=== PATIENT | female | born 1945 | race Caucasian/White ===

== ENCOUNTER → 2016-08-15 | Outpatient (REF) | payer MEDICARE, OTHER ==
[~2016-08-15] MED LIST: /RANI15TA PO; /ROPI1TA PO; ACET500C PO; ALBUTEROL; DRIS1CAP PO; FURO20TA2 PO; FURO40TA2 PO; GABA300C2 PO; LOMOTA PO; SPIR25TA2 PO; [UNRECOGNIZED DRUG - CODE] PO; [UNRECOGNIZED DRUG - CODE] SC
[2016-08-15 13:35] LABS: ALBUMIN 3.3 GM/DL (3.2-5.2); ALBUMIN/GLOBULIN RATIO 0.73 (1.00-1.93); ALKALINE PHOSPHATASE 93 U/L (45-117); ALT/SGPT 48 U/L (12-78); AMYLASE 47 U/L (25-115); ANION GAP 11 MEQ/L (8-16); AST/SGOT 23 U/L (15-37); BASO # 0.1 K/mm3 (0.0-0.2); BASO % 0.7 % (0.0-1.0); BILIRUBIN,TOTAL 0.6 MG/DL (0.2-1.0); BLOOD UREA NITROGEN 24 MG/DL (7-18); CALCIUM LEVEL 9.5 MG/DL (8.8-10.2); CARBON DIOXIDE LEVEL 32 MEQ/L (21-32); CHLORIDE LEVEL 95 MEQ/L (98-107); CREATININE FOR GFR 0.94 MG/DL (0.55-1.02); EOS # 0.2 K/mm3 (0.0-0.50); EOS % 2.1 % (0.0-3.0); GLOMERULAR FILTRATION RATE > 60.0 (>39); GLUCOSE, FASTING 204 MG/DL (83-110); LARGE UNSTAINED CELL # 0.3 K/mm3 (0.0-0.4); LARGE UNSTAINED CELL % 2.9 % (0.0-4.0); LYMPH # 2.7 K/mm3 (1.5-4.5); LYMPH % 31.6 % (24.0-44.0); MEAN CORPUSCULAR HEMOGLOBIN 25.4 pg (27.0-33.0); MEAN CORPUSCULAR HGB CONC 31.8 g/dl (32.0-36.5); MEAN CORPUSCULAR VOLUME 79.9 fl (80.0-96.0); MONO # 0.3 K/mm3 (0.0-0.8); MONO % 3.1 % (0.0-5.0); NEUTROPHILS % 59.6 % (36.0-66.0); PLATELET COUNT, AUTOMATED 315 k/mm3 (150-450); POTASSIUM SERUM 4.3 MEQ/L (3.5-5.1); RED CELL DISTRIBUTION WIDTH 14.2 % (11.5-14.5); SODIUM LEVEL 138 MEQ/L (136-145); TOTAL PROTEIN 7.8 GM/DL (6.4-8.2); WHITE BLOOD COUNT 8.4 K/mm3 (4.0-10.0)
== END ==
LOC: M SFHCPLAZ 11:21
PROVIDERS: ATTEND Nurse Practitioner Family
DX: R74.8 Abnormal levels of other serum enzymes (principal); E11.9 Type 2 diabetes mellitus without complications
CPT/HCPCS: 80053; 82150; 83690; 85025; G0463

== ENCOUNTER → 2016-09-05 | Outpatient (REF) | payer MEDICARE ==
[2016-09-05 12:24] LABS: FREE T4 1.11 NG/DL (0.76-1.46)
== END ==
LOC: M SFHCPLAZ 09:54
PROVIDERS: ATTEND Nurse Practitioner Family
DX: E03.9 Hypothyroidism, unspecified (principal); E11.9 Type 2 diabetes mellitus without complications

== ENCOUNTER → 2016-11-16 | Day surgery (SDC) | payer MEDICARE ==
[~2016-11-16] VITALS: Ht 157.5 cm; Wt 104.3 kg
[~2016-11-16] MED LIST changes: +ACETAMINOPHEN 325 MG TAB PO PRN; +ACETYLCHOLINE OPHTH SOLN 1% 2ML (MIOCHOL-E) As Ordered ONE; +ALBU17IN INH; +ATOR40TA PO; +AcetaZOLAMIDE 500 MG ER CAP PO ONE; +BALANCED SALT IRRIGATION SOLUTION 500ML BAG (FOR OR EYE MACHINE) As Ordered ONE; +CEFUROXIME 1MG/0.1ML INTRACAMERAL INJ As Ordered ONE; +CYCLOPENTOLATE 2% OPHTH SOLN 2ML BTL OD ONE; +GLIP5TAB8 PO; +HEALON DUET (HEALON 10MG/ML 0.55ML & HEALON ENDOCOAT 30MG/ML 0.85ML) As Ordered ONE; +HumaLOG INSULIN (NovoLOG) PER UNIT As Ordered ONE; +HumaLOG INSULIN (NovoLOG) PER UNIT SC ONE; +IPRASOL4; +KETOROLAC 0.5% OPHTH SOLN OD ONE; +LEVO100T5 PO; +LIDOCAINE 1% SDV 5 ML VIAL As Ordered ONE; +LIDOCAINE 4% INJ 5 ML AMP OU ONE; +LISI-542 PO; +LR 500 ML IV SCH; +MELO7.5T6 PO; +METF1000 PO; +MIDAZOLAM INJ 2 MG/2 ML VIAL (J2250) As Ordered ONE; +OFLOXACIN 0.3 % (OCUFLOX) OPTH SOL 5ML OD ONE; +PANT40TA2 PO; +PHENYLEPHRINE 2.5% OPHTH SOL 2ML OD ONE; +POVIDONE-IODINE 5% OPHTH PREP SOL 30ML As Ordered ONE; +PROPARACAINE 0.5% OPHTH SOL 15ML OD PRN; +ROPI0.5T PO; +TORS20TA2 PO; +TRAZ50TA4 PO; +TRIMETHOBENZAMIDE 300 MG CAP PO PRN; +TROPICAMIDE 1% OPHTH SOLN 2ML OD ONE; +fentaNYL 100 MCG/2 ML INJECTION (J3010) As Ordered ONE
--- NOTE | 2016-11-16 12:34 | RO ---
DATE OF PROCEDURE: 11/16/2016 PREPROCEDURE DIAGNOSIS: Age-related nuclear cataract right eye. POSTPROCEDURE DIAGNOSIS: Age-related nuclear cataract right eye. PROCEDURE: Phacoemulsification and posterior chamber intraocular lens implantation right eye. The lens used was [id number], 17.5 diopter. SURGEON: Danyelle Jimenez MD MED AIDE: ANESTHESIA: Topical with sedation. DESCRIPTION OF PROCEDURE: The patient was prepped and draped in the usual fashion. A lid speculum was placed between the lids. The eye was fixated. A stab incision was made to the anterior chamber, and 1% non-preserved lidocaine was instilled. Then, viscoelastic was instilled. The eye was re-fixated. A 2.75 mm sapphire keratome was used to make a clear corneal temporal limbal incision. Capsulorrhexis was begun with a 30-gauge bent needle and then carried out in a circular fashion with capsulorrhexis forceps. The lens was hydrodissected, and then the phacoemulsification unit was used to make a groove in the nucleus in two meridians. The nucleus was then cracked into four quadrants. Each quadrant was removed with the phacoemulsification unit. Any remaining cortex was removed with the irrigation and aspiration (I and A) unit. Capsular bag was refilled with viscoelastic. A posterior chamber intraocular lens was placed in the capsular bag without difficulty. Any remaining viscoelastic was removed with the I and A unit. The wound was hydrated, and Miochol and cefuroxime were instilled into the anterior chamber. The patient tolerated the procedure well and went to the recovery room in stable condition.
[2016-11-16 13:15] VITALS: BP 166/70
== END | disposition home or self-care (01) ==
LOC: M SDC 11:07
PROVIDERS: ATTEND Ophthalmology
DX: H25.12 Age-related nuclear cataract, left eye (principal); R01.1 Cardiac murmur, unspecified; E11.40 Type 2 diabetes mellitus with diabetic neuropathy, unspecified; E03.9 Hypothyroidism, unspecified; K21.9 Gastro-esophageal reflux disease without esophagitis; R29.898 Other symptoms and signs involving the musculoskeletal system; M13.0 Polyarthritis, unspecified; J45.909 Unspecified asthma, uncomplicated; J44.9 Chronic obstructive pulmonary disease, unspecified; I10 Essential (primary) hypertension; R06.83 Snoring; R06.09 Other forms of dyspnea; M54.5 Low back pain; M10.9 Gout, unspecified; G89.29 Other chronic pain; G47.33 Obstructive sleep apnea (adult) (pediatric); G25.81 Restless legs syndrome; E66.01 Morbid (severe) obesity due to excess calories; Z79.899 Other long term (current) drug therapy; Z79.84 Long term (current) use of oral hypoglycemic drugs; Z87.81 Personal history of (healed) traumatic fracture; Z78.0 Asymptomatic menopausal state; Z87.891 Personal history of nicotine dependence
CPT/HCPCS: 66984; J2250; J3010; V2632

== ENCOUNTER 2017-10-27 11:24 | Inpatient (IN) | payer MEDICARE, SELFPAY ==
[2017-10-27 12:18] LABS: BASO # 0.1 10^3/uL (0.0-0.2); BASO % 0.8 % (0.0-1.0); EOS # 0.1 10^3/uL (0.0-0.50); EOS % 2.3 % (0.0-3.0); HEMATOCRIT 29.1 % (36.0-47.0); HEMOGLOBIN 8.7 g/dl (12.0-15.5); IMMATURE GRANULOCYTE % 0.7 % (0-3.0); LYMPH # 0.9 10^3/uL (1.5-4.5); LYMPH % 14.8 % (24.0-44.0); MEAN CORPUSCULAR HEMOGLOBIN 23.8 pg (27.0-33.0); MEAN CORPUSCULAR HGB CONC 29.9 g/dl (32.0-36.5); MEAN CORPUSCULAR VOLUME 79.7 fl (80.0-96.0); MONO # 0.4 10^3/uL (0.0-0.8); MONO % 7.3 % (0.0-5.0); NEUTROPHILS # 4.5 10^3/uL (1.8-7.7); NEUTROPHILS % 74.1 % (36.0-66.0); PLATELET COUNT, AUTOMATED 271 10^3/uL (150-450); RED BLOOD COUNT 3.65 10^6/uL (4.00-5.40); RED CELL DISTRIBUTION WIDTH 17.3 % (11.5-14.5)
[2017-10-27 12:29] LABS: INR 1.34; PROTHROMBIN TIME 16.9 SECONDS (12.4-14.5)
[2017-10-27 12:45] LABS: ALBUMIN/GLOBULIN RATIO 0.57 (1.00-1.93); ALKALINE PHOSPHATASE 56 U/L (45-117); ALT/SGPT 15 U/L (12-78); ANION GAP 6 MEQ/L (8-16); AST/SGOT 17 U/L (7-37); BILIRUBIN,DIRECT 0.4 MG/DL (0.0-0.2); BILIRUBIN,TOTAL 0.8 MG/DL (0.2-1.0); BLOOD UREA NITROGEN 13 MG/DL (7-18); CALCIUM LEVEL 8.3 MG/DL (8.8-10.2); CARBON DIOXIDE LEVEL 28 MEQ/L (21-32); CHLORIDE LEVEL 108 MEQ/L (98-107); CPK CREATINE PHOSPHOKINASE 50 U/L (26-192); CREATININE FOR GFR 0.92 MG/DL (0.55-1.30); GLOMERULAR FILTRATION RATE > 60.0 (>39); GLUCOSE, FASTING 193 MG/DL (70-100); POTASSIUM SERUM 3.7 MEQ/L (3.5-5.1); SODIUM LEVEL 142 MEQ/L (136-145); TOTAL PROTEIN 8.3 GM/DL (6.4-8.2); TROPONIN I < 0.02 NG/ML (< 0.10)
[2017-10-27 12:50] LABS: CK-MB VALUE MASS 1.2 NG/ML (<3.6); NT-PRO BNP 1132 PG/ML (<125)
[2017-10-27 12:56] LABS: DIGOXIN LEVEL 0.4 NG/ML (0.5-2.0)
[2017-10-27 13:11] LABS: INFLUENZA A AMPLIFICATION NEGATIVE (NEGATIVE); INFLUENZA B AMPLIFICATION NEGATIVE (NEGATIVE)
[2017-10-27] MEDS: DIGOXIN 0.125 MG TAB PO (13:30)
[2017-10-27] MEDS: METOPROLOL 5 MG/5 ML VIAL IV (15:20)
[2017-10-27] MEDS: METOPROLOL TART 25 MG TABLET PO ×2 (15:40→21:13)
[2017-10-27] MEDS ORDERED: ISOVUE-370 76% 100ML VIAL (Q9967) As Ordered (16:47)
[2017-10-27] MEDS ORDERED: ACETAMINOPHEN TAB 650MG DOSE (2X325MG) PO (17:45)
[2017-10-27] MEDS ORDERED: GLUCOSE 4 GM CHEW TABLET PO (17:45)
[2017-10-27] MEDS ORDERED: GLUCAGON FOR INJ 1 MG VIAL (J1610) SC (17:45)
[2017-10-27] MEDS ORDERED: DEXTROSE 50% 50 ML SYRINGE IV (17:45)
[2017-10-27 18:11] LABS: FREE T4 1.26 NG/DL (0.76-1.46)
[2017-10-27] MEDS ORDERED: ALBUTEROL SULFATE 2.5 MG/0.5 ML INH NEB SOLN NEB (18:15)
[2017-10-27] MEDS: HumaLOG INSULIN (NovoLOG) PER UNIT SC ×2 (18:50→21:12)
[2017-10-27] MEDS: traZODone 50 MG TAB PO (21:10)
[2017-10-27] MEDS: rOPINIRole 0.25 MG TAB(REQUIP) PO (21:10)
[2017-10-27] MEDS: ENOXAPARIN 100MG/1ML SYRINGE (J1650) SC (21:11)
[2017-10-27] MEDS: LEVEMIR (INSULIN DETEMIR) 1 UNITS/0.01ML SC (21:12)
[2017-10-28] MEDS: LEVOTHYROXINE 100MCG TABLET (0.1MG) PO (05:31)
[2017-10-28] MEDS: ENOXAPARIN 100MG/1ML SYRINGE (J1650) SC ×2 (05:31→17:10)
[2017-10-28] MEDS: HumaLOG INSULIN (NovoLOG) PER UNIT SC ×4 (07:30→21:00)
[2017-10-28 07:40] LABS: BEDSIDE GLUCOSE 343 MG/DL (83-110)
[2017-10-28 07:40] LABS: BEDSIDE GLUCOSE 329 MG/DL (83-110)
[2017-10-28 08:26] LABS: BEDSIDE GLUCOSE 191 MG/DL (83-110)
[2017-10-28] MEDS: FUROSEMIDE 20 MG TAB PO (09:00)
[2017-10-28] MEDS: METOPROLOL TART 25 MG TABLET PO ×2 (09:00→21:44)
[2017-10-28] MEDS: LEVEMIR (INSULIN DETEMIR) 1 UNITS/0.01ML SC ×2 (09:05→21:52)
[2017-10-28] MEDS: PANTOPRAZOLE 40MG TAB (PROTONIX) PO (09:06)
[2017-10-28] MEDS: POTASSIUM CHLORIDE 10 MEQ SR TABLET PO (09:06)
[2017-10-28] MEDS: DIGOXIN 0.125 MG TAB PO (09:06)
[2017-10-28] MEDS: FLUoxetine 10 MG CAP PO (09:07)
[2017-10-28] MEDS: glipiZIDE (GLUCOTROL) 5 MG TAB PO (09:07)
[2017-10-28] MEDS: METOPROLOL 5 MG/5 ML VIAL IV ×5 (13:59→14:50)
[2017-10-28 16:59] LABS: BEDSIDE GLUCOSE 106 MG/DL (83-110)
[2017-10-28 18:50] LABS: BEDSIDE GLUCOSE 136 MG/DL (83-110)
[2017-10-28] MEDS: traZODone 50 MG TAB PO (21:39)
[2017-10-28] MEDS: rOPINIRole 0.25 MG TAB(REQUIP) PO (21:42)
[2017-10-28 21:52] LABS: BEDSIDE GLUCOSE 170 MG/DL (83-110)
[2017-10-29] MEDS: ENOXAPARIN 100MG/1ML SYRINGE (J1650) SC ×2 (05:18→17:23)
[2017-10-29] MEDS: LEVOTHYROXINE 100MCG TABLET (0.1MG) PO (05:18)
[2017-10-29] MEDS: glipiZIDE (GLUCOTROL) 5 MG TAB PO (06:43)
[2017-10-29 07:01] LABS: BASO # 0.1 10^3/uL (0.0-0.2); BASO % 0.7 % (0.0-1.0); EOS # 0.2 10^3/uL (0.0-0.50); EOS % 2.4 % (0.0-3.0); HEMATOCRIT 28.6 % (36.0-47.0); HEMOGLOBIN 8.5 g/dl (12.0-15.5); IMMATURE GRANULOCYTE % 0.7 % (0-3.0); LYMPH # 1.6 10^3/uL (1.5-4.5); LYMPH % 22.1 % (24.0-44.0); MEAN CORPUSCULAR HEMOGLOBIN 23.9 pg (27.0-33.0); MEAN CORPUSCULAR HGB CONC 29.7 g/dl (32.0-36.5); MEAN CORPUSCULAR VOLUME 80.6 fl (80.0-96.0); MONO # 0.5 10^3/uL (0.0-0.8); MONO % 7.5 % (0.0-5.0); NEUTROPHILS # 4.7 10^3/uL (1.8-7.7); NEUTROPHILS % 66.6 % (36.0-66.0); PLATELET COUNT, AUTOMATED 284 10^3/uL (150-450); RED BLOOD COUNT 3.55 10^6/uL (4.00-5.40); RED CELL DISTRIBUTION WIDTH 17.4 % (11.5-14.5); WHITE BLOOD COUNT 7.1 10^3/uL (4.0-10.0)
[2017-10-29 07:19] LABS: ANION GAP 6 MEQ/L (8-16); BLOOD UREA NITROGEN 26 MG/DL (7-18); CALCIUM LEVEL 8.3 MG/DL (8.8-10.2); CARBON DIOXIDE LEVEL 28 MEQ/L (21-32); CHLORIDE LEVEL 109 MEQ/L (98-107); CREATININE FOR GFR 0.88 MG/DL (0.55-1.30); GLOMERULAR FILTRATION RATE > 60.0 (>39); GLUCOSE, FASTING 96 MG/DL (70-100); MAGNESIUM LEVEL 2.1 MG/DL (1.8-2.4); POTASSIUM SERUM 3.7 MEQ/L (3.5-5.1); SODIUM LEVEL 143 MEQ/L (136-145)
[2017-10-29] MEDS: HumaLOG INSULIN (NovoLOG) PER UNIT SC ×4 (07:29→21:00)
[2017-10-29] MEDS: FLUoxetine 10 MG CAP PO (08:32)
[2017-10-29] MEDS: PANTOPRAZOLE 40MG TAB (PROTONIX) PO (08:32)
[2017-10-29] MEDS: DIGOXIN 0.125 MG TAB PO (08:32)
[2017-10-29] MEDS: METOPROLOL TART 25 MG TABLET PO ×3 (08:32→21:11)
[2017-10-29] MEDS: POTASSIUM CHLORIDE 10 MEQ SR TABLET PO (08:33)
[2017-10-29] MEDS: FUROSEMIDE 20 MG TAB PO (08:33)
[2017-10-29] MEDS: LEVEMIR (INSULIN DETEMIR) 1 UNITS/0.01ML SC ×2 (08:33→21:11)
[2017-10-29 12:03] LABS: BEDSIDE GLUCOSE 94 MG/DL (83-110)
[2017-10-29] MEDS: CHOLESTYRAMINE 4 GM PWD PKT PO (13:53)
[2017-10-29 17:13] LABS: BEDSIDE GLUCOSE 134 MG/DL (83-110)
[2017-10-29] MEDS: FUROSEMIDE 20 MG/2 ML VIAL (J1940) IV (17:32)
[2017-10-29] MEDS: traZODone 50 MG TAB PO (21:10)
[2017-10-29] MEDS: rOPINIRole 0.25 MG TAB(REQUIP) PO (21:11)
[2017-10-29 21:18] LABS: BEDSIDE GLUCOSE 170 MG/DL (83-110)
[2017-10-30 04:01] LABS: BASO % 0.6 % (0.0-1.0); EOS # 0.3 10^3/uL (0.0-0.50); EOS % 4.6 % (0.0-3.0); HEMATOCRIT 27.8 % (36.0-47.0); HEMOGLOBIN 8.3 g/dl (12.0-15.5); IMMATURE GRANULOCYTE % 0.6 % (0-3.0); LYMPH # 1.2 10^3/uL (1.5-4.5); MEAN CORPUSCULAR HEMOGLOBIN 23.9 pg (27.0-33.0); MEAN CORPUSCULAR HGB CONC 29.9 g/dl (32.0-36.5); MEAN CORPUSCULAR VOLUME 80.1 fl (80.0-96.0); MONO # 0.7 10^3/uL (0.0-0.8); MONO % 10.5 % (0.0-5.0); NEUTROPHILS # 4.4 10^3/uL (1.8-7.7); NEUTROPHILS % 65.7 % (36.0-66.0); PLATELET COUNT, AUTOMATED 246 10^3/uL (150-450); RED BLOOD COUNT 3.47 10^6/uL (4.00-5.40); RED CELL DISTRIBUTION WIDTH 17.4 % (11.5-14.5); WHITE BLOOD COUNT 6.7 10^3/uL (4.0-10.0)
[2017-10-30 04:21] LABS: ANION GAP 8 MEQ/L (8-16); BLOOD UREA NITROGEN 24 MG/DL (7-18); CALCIUM LEVEL 8.2 MG/DL (8.8-10.2); CARBON DIOXIDE LEVEL 28 MEQ/L (21-32); CHLORIDE LEVEL 108 MEQ/L (98-107); CREATININE FOR GFR 0.92 MG/DL (0.55-1.30); GLOMERULAR FILTRATION RATE > 60.0 (>39); GLUCOSE, FASTING 85 MG/DL (70-100); MAGNESIUM LEVEL 1.9 MG/DL (1.8-2.4); POTASSIUM SERUM 3.6 MEQ/L (3.5-5.1); SODIUM LEVEL 144 MEQ/L (136-145)
[2017-10-30] MEDS: LEVOTHYROXINE 100MCG TABLET (0.1MG) PO (05:02)
[2017-10-30] MEDS: METOPROLOL TART 25 MG TABLET PO ×3 (05:03→21:24)
[2017-10-30] MEDS: ENOXAPARIN 100MG/1ML SYRINGE (J1650) SC ×2 (05:03→17:55)
[2017-10-30] MEDS: HumaLOG INSULIN (NovoLOG) PER UNIT SC ×4 (07:30→21:00)
[2017-10-30] MEDS: PANTOPRAZOLE 40MG TAB (PROTONIX) PO (08:10)
[2017-10-30] MEDS: FUROSEMIDE 20 MG/2 ML VIAL (J1940) IV ×2 (08:10→16:47)
[2017-10-30] MEDS: FLUoxetine 10 MG CAP PO (08:10)
[2017-10-30] MEDS: LEVEMIR (INSULIN DETEMIR) 1 UNITS/0.01ML SC ×2 (08:10→21:22)
[2017-10-30] MEDS: glipiZIDE (GLUCOTROL) 5 MG TAB PO (08:11)
[2017-10-30] MEDS: DIGOXIN 0.125 MG TAB PO (08:11)
[2017-10-30] MEDS: POTASSIUM CHLORIDE 10 MEQ SR TABLET PO (08:11)
[2017-10-30 11:53] LABS: BEDSIDE GLUCOSE 78 MG/DL (83-110)
[2017-10-30 17:53] LABS: BEDSIDE GLUCOSE 85 MG/DL (83-110)
[2017-10-30 21:20] LABS: BEDSIDE GLUCOSE 150 MG/DL (83-110)
[2017-10-30] MEDS: rOPINIRole 0.25 MG TAB(REQUIP) PO (21:22)
[2017-10-30] MEDS: traZODone 50 MG TAB PO (21:22)
[2017-10-31] MEDS: ENOXAPARIN 100MG/1ML SYRINGE (J1650) SC (05:28)
[2017-10-31] MEDS: METOPROLOL TART 25 MG TABLET PO ×3 (05:32→21:28)
[2017-10-31] MEDS: LEVOTHYROXINE 100MCG TABLET (0.1MG) PO (05:33)
[2017-10-31 05:38] LABS: BASO % 0.8 % (0.0-1.0); EOS # 0.2 10^3/uL (0.0-0.50); EOS % 3.8 % (0.0-3.0); HEMATOCRIT 27.1 % (36.0-47.0); IMMATURE GRANULOCYTE % 0.6 % (0-3.0); LYMPH % 18.2 % (24.0-44.0); MEAN CORPUSCULAR HEMOGLOBIN 23.4 pg (27.0-33.0); MEAN CORPUSCULAR HGB CONC 29.5 g/dl (32.0-36.5); MEAN CORPUSCULAR VOLUME 79.2 fl (80.0-96.0); MONO # 0.5 10^3/uL (0.0-0.8); MONO % 10.1 % (0.0-5.0); NEUTROPHILS # 3.5 10^3/uL (1.8-7.7); NEUTROPHILS % 66.5 % (36.0-66.0); PLATELET COUNT, AUTOMATED 226 10^3/uL (150-450); RED BLOOD COUNT 3.42 10^6/uL (4.00-5.40); RED CELL DISTRIBUTION WIDTH 17.2 % (11.5-14.5); WHITE BLOOD COUNT 5.2 10^3/uL (4.0-10.0)
[2017-10-31 06:09] LABS: ANION GAP 8 MEQ/L (8-16); BLOOD UREA NITROGEN 23 MG/DL (7-18); CALCIUM LEVEL 8.2 MG/DL (8.8-10.2); CARBON DIOXIDE LEVEL 27 MEQ/L (21-32); CHLORIDE LEVEL 109 MEQ/L (98-107); CREATININE FOR GFR 0.81 MG/DL (0.55-1.30); GLOMERULAR FILTRATION RATE > 60.0 (>39); GLUCOSE, FASTING 122 MG/DL (70-100); POTASSIUM SERUM 3.6 MEQ/L (3.5-5.1); SODIUM LEVEL 144 MEQ/L (136-145)
[2017-10-31] MEDS: PANTOPRAZOLE 40MG TAB (PROTONIX) PO (07:27)
[2017-10-31] MEDS: POTASSIUM CHLORIDE 10 MEQ SR TABLET PO (07:27)
[2017-10-31] MEDS: glipiZIDE (GLUCOTROL) 5 MG TAB PO (07:27)
[2017-10-31] MEDS: FUROSEMIDE 20 MG/2 ML VIAL (J1940) IV (07:27)
[2017-10-31] MEDS: FLUoxetine 10 MG CAP PO (07:27)
[2017-10-31] MEDS: DIGOXIN 0.125 MG TAB PO (07:28)
[2017-10-31] MEDS: HumaLOG INSULIN (NovoLOG) PER UNIT SC ×4 (07:29→21:00)
[2017-10-31] MEDS: LEVEMIR (INSULIN DETEMIR) 1 UNITS/0.01ML SC ×2 (07:29→21:29)
[2017-10-31 11:57] LABS: BEDSIDE GLUCOSE 100 MG/DL (83-110)
[2017-10-31 20:07] LABS: BEDSIDE GLUCOSE 159 MG/DL (83-110)
[2017-10-31] MEDS: traZODone 50 MG TAB PO (21:28)
[2017-10-31] MEDS: rOPINIRole 0.25 MG TAB(REQUIP) PO (21:28)
[2017-10-31] MEDS: APIXABAN 5 MG TAB (ELIQUIS) PO (21:28)
[2017-11-01] MEDS: LEVOTHYROXINE 100MCG TABLET (0.1MG) PO (05:58)
[2017-11-01] MEDS: METOPROLOL TART 25 MG TABLET PO (05:59)
[2017-11-01 06:09] LABS: BASO % 0.7 % (0.0-1.0); EOS # 0.3 10^3/uL (0.0-0.50); EOS % 4.4 % (0.0-3.0); HEMATOCRIT 28.2 % (36.0-47.0); HEMOGLOBIN 8.4 g/dl (12.0-15.5); IMMATURE GRANULOCYTE % 0.5 % (0-3.0); LYMPH % 18.2 % (24.0-44.0); MEAN CORPUSCULAR HEMOGLOBIN 23.5 pg (27.0-33.0); MEAN CORPUSCULAR HGB CONC 29.8 g/dl (32.0-36.5); MONO # 0.6 10^3/uL (0.0-0.8); MONO % 10.5 % (0.0-5.0); NEUTROPHILS # 3.7 10^3/uL (1.8-7.7); NEUTROPHILS % 65.7 % (36.0-66.0); PLATELET COUNT, AUTOMATED 241 10^3/uL (150-450); RED BLOOD COUNT 3.57 10^6/uL (4.00-5.40); RED CELL DISTRIBUTION WIDTH 17.1 % (11.5-14.5); WHITE BLOOD COUNT 5.7 10^3/uL (4.0-10.0)
[2017-11-01 06:29] LABS: ANION GAP 6 MEQ/L (8-16); BLOOD UREA NITROGEN 25 MG/DL (7-18); CALCIUM LEVEL 8.4 MG/DL (8.8-10.2); CARBON DIOXIDE LEVEL 27 MEQ/L (21-32); CHLORIDE LEVEL 108 MEQ/L (98-107); CREATININE FOR GFR 0.79 MG/DL (0.55-1.30); GLOMERULAR FILTRATION RATE > 60.0 (>39); GLUCOSE, FASTING 97 MG/DL (70-100); MAGNESIUM LEVEL 2.1 MG/DL (1.8-2.4); POTASSIUM SERUM 3.7 MEQ/L (3.5-5.1); SODIUM LEVEL 141 MEQ/L (136-145)
[2017-11-01] MEDS: HumaLOG INSULIN (NovoLOG) PER UNIT SC ×2 (07:30→12:00)
[2017-11-01 08:28] LABS: BEDSIDE GLUCOSE 119 MG/DL (83-110)
[2017-11-01] MEDS: LEVEMIR (INSULIN DETEMIR) 1 UNITS/0.01ML SC (09:00)
[2017-11-01] MEDS: PANTOPRAZOLE 40MG TAB (PROTONIX) PO (09:51)
[2017-11-01] MEDS: POTASSIUM CHLORIDE 10 MEQ SR TABLET PO (09:52)
[2017-11-01] MEDS: DIGOXIN 0.125 MG TAB PO (09:52)
[2017-11-01] MEDS: FLUoxetine 10 MG CAP PO (09:52)
[2017-11-01] MEDS: APIXABAN 5 MG TAB (ELIQUIS) PO (09:52)
[2017-11-01] MEDS: FUROSEMIDE 20 MG TAB PO (09:52)
[2017-11-01] MEDS: glipiZIDE (GLUCOTROL) 5 MG TAB PO (09:53)
[2017-11-01 11:46] LABS: BEDSIDE GLUCOSE 136 MG/DL (83-110)
== END 2017-11-01 13:11 | disposition home or self-care (01) | DRG 308 ==
LOC: M ICU 10-28 13:45 → M MSPAV 10-31 12:40 → M PCU 10-30 17:10 → M ED 11:24 → M ED INP 17:31
DX: I48.91 Unspecified atrial fibrillation (principal); I50.23 Acute on chronic systolic (congestive) heart failure; J90 Pleural effusion, not elsewhere classified; J44.9 Chronic obstructive pulmonary disease, unspecified; I11.0 Hypertensive heart disease with heart failure; E78.5 Hyperlipidemia, unspecified; E11.40 Type 2 diabetes mellitus with diabetic neuropathy, unspecified; E03.9 Hypothyroidism, unspecified; Z85.038 Personal history of other malignant neoplasm of large intestine; Z90.49 Acquired absence of other specified parts of digestive tract; G47.33 Obstructive sleep apnea (adult) (pediatric); Z99.89 Dependence on other enabling machines and devices; K21.9 Gastro-esophageal reflux disease without esophagitis; Z98.41 Cataract extraction status, right eye; Z87.891 Personal history of nicotine dependence; E66.01 Morbid (severe) obesity due to excess calories; Z79.4 Long term (current) use of insulin; Z79.899 Other long term (current) drug therapy; Z79.01 Long term (current) use of anticoagulants

== ENCOUNTER 2018-03-26 09:01 | Outpatient (RCR) | payer MEDICARE | END 2018-04-11 | LOC: M PT 09:01 | DX: M25.511 Pain in right shoulder (principal) | CPT/HCPCS: 97110 ==

== ENCOUNTER 2018-04-12 08:50 | Outpatient (RCR) | payer MEDICARE | END 2018-05-11 | LOC: M PT 04-17 08:54 | DX: M25.511 Pain in right shoulder (principal); M19.011 Primary osteoarthritis, right shoulder | CPT/HCPCS: 97110 ==

== ENCOUNTER 2018-09-05 15:39 | Inpatient (IN) | payer MEDICARE ==
[~2018-09-05] VITALS: Ht 154.9 cm; Wt 108.6 kg
[~2018-09-05 15:39] MED LIST changes: -ADVO0.5M2 SC; -ALBU83IN INH; -GLIP5TAB20 PO; -METF-723 PO; -METO25TA4 PO; -VENTAER INH
--- NOTE | 2018-09-05 16:18 | REP ---
Portable chest x-ray: Single view. History: Dyspnea and cough. Comparison chest x-ray: 09/05/2018. Findings: The previously noted right pleural effusion is again seen, moderate in size. Pulmonary vasculature is cephalized ingested. Cardiomegaly is observed. The left lateral pleural angle is is excluded from the field of view. Impression: CHF pattern. Moderate right pleural effusion. Vascular cephalization. Electronically Signed by Rai Geller MD 09/05/2018 04:10 P
[2018-09-05 16:52] LABS: BASO % 0.5 % (0.0-1.0); EOS # 0.2 10^3/uL (0.0-0.50); EOS % 2.8 % (0.0-3.0); HEMATOCRIT 30.9 % (36.0-47.0); HEMOGLOBIN 9.2 g/dl (12.0-15.5); LYMPH # 0.8 10^3/uL (1.5-4.5); LYMPH % 13.4 % (24.0-44.0); MEAN CORPUSCULAR HEMOGLOBIN 24.5 pg (27.0-33.0); MEAN CORPUSCULAR HGB CONC 29.8 g/dl (32.0-36.5); MEAN CORPUSCULAR VOLUME 82.4 fl (80.0-96.0); MONO # 0.4 10^3/uL (0.0-0.8); MONO % 7.2 % (0.0-5.0); NEUTROPHILS # 4.4 10^3/uL (1.8-7.7); NEUTROPHILS % 75.8 % (36.0-66.0); PLATELET COUNT, AUTOMATED 214 10^3/uL (150-450); RED BLOOD COUNT 3.75 10^6/uL (4.00-5.40); WHITE BLOOD COUNT 5.8 10^3/uL (4.0-10.0)
[2018-09-05] MEDS ORDERED: ADVO0.5M2 SC ×2 (17:01→17:02)
[2018-09-05 17:02] LABS: INR 1.44; PROTHROMBIN TIME 17.7 SECONDS (12.1-14.4)
[2018-09-05] MEDS ORDERED: FUROSEMIDE 100 MG/10 ML VIAL (J1940) IV ONE (17:15)
[2018-09-05 17:18] LABS: ALBUMIN 3.4 GM/DL (3.2-5.2); ALT/SGPT 11 U/L (12-78); BILIRUBIN,DIRECT 0.4 MG/DL (0.0-0.2); BILIRUBIN,TOTAL 0.9 MG/DL (0.2-1.0); BLOOD UREA NITROGEN 16 MG/DL (7-18); CALCIUM LEVEL 8.4 MG/DL (8.8-10.2); CARBON DIOXIDE LEVEL 26 MEQ/L (21-32); CHLORIDE LEVEL 107 MEQ/L (98-107); CPK CREATINE PHOSPHOKINASE 45 U/L (26-192); CREATININE FOR GFR 0.89 MG/DL (0.55-1.30); DIGOXIN LEVEL 0.3 NG/ML (0.5-2.0); GLOMERULAR FILTRATION RATE > 60.0 (>39); GLUCOSE, FASTING 226 MG/DL (70-100); MB/CK RELATIVE INDEX 2.22 (< OR =4); NT-PRO BNP 532 PG/ML (<450); POTASSIUM SERUM 3.9 MEQ/L (3.5-5.1); SODIUM LEVEL 142 MEQ/L (136-145); TOTAL PROTEIN 8.4 GM/DL (6.4-8.2); TROPONIN I < 0.02 NG/ML (< 0.10)
[2018-09-05] MEDS ORDERED: VENTAER INH (17:31)
[2018-09-05] MEDS ORDERED: TORS20TA2 PO (17:31)
[2018-09-05] MEDS ORDERED: ELIQ5TAB PO (17:31)
[2018-09-05] MEDS ORDERED: METF-723 PO (17:31)
[2018-09-05] MEDS ORDERED: GLIP5TAB20 PO (17:31)
[2018-09-05] MEDS ORDERED: METO25TA4 PO (17:31)
[2018-09-05] MEDS ORDERED: ALBU83IN INH (17:31)
[2018-09-05] MEDS ORDERED: ATOR40TA75 PO (17:31)
[2018-09-05] MEDS ORDERED: ALBUTEROL SULFATE 2.5 MG/0.5 ML INH NEB SOLN INH PRN (19:00)
[2018-09-05] MEDS ORDERED: GLUCAGON FOR INJ 1 MG VIAL (J1610) SC PRN (19:00)
[2018-09-05] MEDS ORDERED: DEXTROSE 50% 50 ML SYRINGE IV PRN (19:00)
[2018-09-05] MEDS ORDERED: traZODone 50 MG TAB PO PRN (19:00)
[2018-09-05] MEDS ORDERED: GLUCOSE 4 GM CHEW TABLET PO PRN (19:00)
--- NOTE | 2018-09-05 20:12 | HPE ---
DATE OF ADMISSION: 09/05/2018 73-year-old female with a past medical history of chronic systolic heart failure, ejection fraction of 50%, non oxygen dependent chronic obstructive pulmonary disease (COPD), hyperlipidemia, diabetes, hypothyroidism, atrial fibrillation, hypertension, who presents to the emergency room with shortness of breath for the last few months, worsening in the last 3 weeks. She claims that she takes all of her medications every day and her diet has been fairly good, once in a while she does have a sub sandwich or canned meal. She denies any chest pain associated with this. She has had paroxysmal nocturnal dyspnea, as well as increased leg swelling. She was given 80 mg of Lasix in the emergency room and she feels better at this time. Her first troponin was negative. We will admit her for further management. PAST MEDICAL HISTORY: Again, past medical history of: 1. Chronic systolic heart failure, ejection fraction of 50%. 2. Non oxygen dependent COPD. 3. Hyperlipidemia. 4. Hypertension. 5. Diabetes. 6. Atrial fibrillation. 7. Colon cancer, status post colectomy on 09/15/2018. 8. Hypothyroidism. 9. History of obstructive sleep apnea on CPAP. 10. Gastroesophageal reflux disease (GERD). 11. Arthritis. 12. Gout. 13. Diabetic neuropathy. ALLERGIES: She has no known drug allergies. FAMILY HISTORY: Noncontributory. SOCIAL HISTORY: The patient used to smoke two packs a day for 30 years, quit many years ago. Denies alcohol or illicit drugs. MEDICATIONS: She takes at home: - Lantus of an unknown dose twice a day - metoprolol tartrate 25 mg by mouth twice a day - torsemide 20 mg by mouth daily - digoxin 125 mcg by mouth daily - albuterol two puffs inhaled four times a day as needed - melatonin 3 mg by mouth at bedtime - albuterol as needed - Apixaban 5 mg by mouth twice a day - atorvastatin 40 mg by mouth at bedtime - gabapentin 100 mg by mouth twice a day - glipizide 5 mg by mouth daily - Synthroid 100 mcg by mouth daily - loperamide 2 mg by mouth every 6 hours as needed - metformin 1000 mg by mouth twice a day - pantoprazole 40 mg by mouth daily - ropinirole 0.5 mg by mouth at bedtime - trazodone 50 mg by mouth at bedtime as needed REVIEW OF SYSTEMS: Negative for all ten major systems except what is mentioned in the history of present illness. PHYSICAL EXAMINATION: VITAL SIGNS: Blood pressure 121/70, heart rate is 90 and regular, respiratory rate 20, temperature 97.7, oxygen saturation 95% on room air. Head is atraumatic, normocephalic. Neck is supple with no jugular venous distention (JVD). Lungs clear to auscultation. S1, S2 audible. No murmurs appreciated. Abdomen is soft. Positive bowel sounds. +2 pedal edema. Skin is intact. Neurologic examination, the patient is awake, alert and oriented times three. LABORATORIES: WBC 5.8, hemoglobin 9.2, hematocrit 30.9, platelets are 214,000. Sodium 142, potassium 3.9, chloride 107, CO2 of 26, BUN 16, creatinine 0.89, glucose is 226, troponin, first set, is less than 0.02. Pro BNP is 532, TSH is 4.9. Digoxin level is 0.3. Chest x-ray shows cephalization. IMPRESSION: 1. Acute systolic heart failure. PLAN: The patient is to be admitted to the progressive care unit (PCU). We will get a second troponin to rule out acute coronary syndrome. I found out later on that she had not taken her torsemide or metoprolol refills since April. If that is the case, she is noncompliant with her medication and this is why she is in heart failure. However, her heart rate and blood pressure are doing well. Right now she has rate controlled atrial fibrillation, despite the fact that she has not taken metoprolol. At this time, I am going to hold off on the metoprolol and torsemide since I am already going to give Lasix 80 mg daily IV. We will reevaluate this tomorrow and see if she even needs the metoprolol or digoxin. She does see Dr. Hawkins. We will speak with him and try to sort out what she should be on at this time. Right now she is clinically stable. We will continue the Lasix 80 mg IV daily and continue all of her other preadmission medications. We will continue her care in the progressive care unit (PCU).
[2018-09-05] MEDS ORDERED: metFORMIN XR 500MG TAB *GLUCOPHAGE XR PO SCH (21:00)
[2018-09-05 21:45] VITALS: BP 137/79
[2018-09-05] MEDS: GABAPENTIN 100 MG CAP PO SCH (22:14)
[2018-09-05] MEDS: APIXABAN 5 MG TAB (ELIQUIS) PO SCH (22:15)
[2018-09-05] MEDS: ATORVASTATIN 20 MG TAB PO SCH (22:15)
[2018-09-05] MEDS: rOPINIRole 0.25 MG TAB(REQUIP) PO SCH (22:16)
[2018-09-06] VITALS: BP 150/72
[2018-09-06 06:28] LABS: BLOOD UREA NITROGEN 15 MG/DL (7-18); CALCIUM LEVEL 8.4 MG/DL (8.8-10.2); CARBON DIOXIDE LEVEL 28 MEQ/L (21-32); CHLORIDE LEVEL 105 MEQ/L (98-107); CREATININE FOR GFR 0.79 MG/DL (0.55-1.30); GLOMERULAR FILTRATION RATE > 60.0 (>39); GLUCOSE, FASTING 143 MG/DL (70-100); POTASSIUM SERUM 3.3 MEQ/L (3.5-5.1); SODIUM LEVEL 141 MEQ/L (136-145)
[2018-09-06] MEDS: LEVOTHYROXINE 100MCG TABLET (0.1MG) PO SCH (06:49)
[2018-09-06 08:00] VITALS: BP 138/71
[2018-09-06] MEDS ORDERED: POTASSIUM CHLORIDE 10 MEQ SR TABLET PO ONE (08:00)
[2018-09-06 08:18] LABS: CK-MB VALUE MASS < 1.0 NG/ML (<3.6); CPK CREATINE PHOSPHOKINASE 40 U/L (26-192); FREE THYROXINE INDEX 2.9 % (1.3-4.8); MAGNESIUM LEVEL 1.6 MG/DL (1.8-2.4); T UPTAKE 33 % (30-39); THYROXINE (T4) 8.8 UG/DL (4.5-12.0); TROPONIN I < 0.02 NG/ML (< 0.10)
[2018-09-06] MEDS: HumaLOG INSULIN (NovoLOG) PER UNIT SC SCH ×3 (08:27→18:27)
[2018-09-06] MEDS: FUROSEMIDE 40 MG/4 ML VIAL (J1940) IV SCH ×4 (08:27→23:44)
[2018-09-06] MEDS: DIGOXIN 0.125 MG TAB PO SCH (08:28)
[2018-09-06] MEDS: PANTOPRAZOLE 40MG TAB (PROTONIX) PO SCH (08:28)
[2018-09-06] MEDS: GABAPENTIN 100 MG CAP PO SCH ×2 (08:28→20:21)
[2018-09-06] MEDS: APIXABAN 5 MG TAB (ELIQUIS) PO SCH ×2 (08:28→20:21)
[2018-09-06] MEDS: LOPERAMIDE 2 MG CAP PO PRN ×2 (08:39→20:21)
[2018-09-06] MEDS ORDERED: FUROSEMIDE 100 MG/10 ML VIAL (J1940) IV SCH ×2 (09:00)
[2018-09-06] MEDS ORDERED: glipiZIDE XL 5 MG TABCR PO SCH (09:00)
[2018-09-06 09:30] LABS: C REACTIVE PROTEIN QUANTITATIV 0.63 MG/DL (0.00-0.30)
--- NOTE | 2018-09-06 10:18 | ECGEPIP ---
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
[2018-09-06 12:00] VITALS: BP 138/82
[2018-09-06] MEDS ORDERED: MAG SULF 1GM/100ML (MAG RUN) 1 GM in APPROPRIATE DILUENT 1 EA IV ONE (13:00)
[2018-09-06 16:00] VITALS: BP 142/76
[2018-09-06] MEDS ORDERED: IPRATROPIUM 0.5MG/ALBUTEROL 2.5MG INH SOL UD 3ML (DUONEB)(J7620) NEB PRN (19:15)
--- NOTE | 2018-09-06 19:31 | IPN ---
DATE: 09/06/2018 Patient admitted, currently with shortness of breath. Denies any chest pain, pressure or discomfort. Reported respirations much improved. Denies any fevers or chills. Reported lower extremity edema. Responding well to diuretics. VITAL SIGNS: Temperature 98.2, pulse 83, respirations 20, blood pressure 138/82, pulse oximetry 95% on room air. LABORATORY: WBC 5.8, hemoglobin and hematocrit 9.2 over 30.9, platelets 214. Chemistry: Sodium 141, potassium 3.3, chloride 105, bicarbonate 28, BUN 15, creatinine 0.79. Cardiac enzymes negative times three. TSH 5.5. PHYSICAL EXAMINATION: GENERAL: Patient morbidly obese, alert, comfortable, in no acute distress. HEENT: Normocephalic, atraumatic. PULMONARY: Bilaterally clear. Diminished breath sounds bilateral base. CARDIAC: Regular, S1, S2. ABDOMEN: Soft, nontender. Positive bowel sounds. EXTREMITIES: 2+ edema bilateral lower extremities. ASSESSMENT AND PLAN: This is a 73-year-old female patient with underlying medical history of chronic systolic congestive heart failure (CHF) with ejection fraction of 50%, chronic obstructive pulmonary disease (COPD), non-oxygen (non-O2) dependent, dyslipidemia, diabetes mellitus type 2, morbid obesity, hypothyroidism, atrial fibrillation, hypertension, admitted with acute CHF exacerbation. PROBLEMS: 1. Acute CHF exacerbation with systolic dysfunction. Ejection fraction (EF) of 50%, net negative, Lasix, echocardiogram, serial cardiac enzymes, strict intake and output, daily weight. 2. Chronic obstructive pulmonary disease. Non-oxygen dependent. Patient does not have any wheeze at this time. Continue home medication. Nebulizer treatment as needed. 3. Paroxysmal atrial fibrillation. Continue anticoagulation with Eliquis. Continue digoxin. Digoxin level appreciated. 4. Diabetes mellitus. Holding oral medication. Insulin according to protocol. 5. Hypothyroidism. Thyroid profile appreciated. Continue Synthroid. 6. Morbid obesity. Complicating care. 7. Dyslipidemia. Continue statin. 8. Obstructive sleep apnea. TATA protocol. Continue home continuous positive airway pressure (CPAP). 9. Gastroesophageal reflux disease (GERD). Continue proton pump inhibitor (PPI). 10. Restless legs. Continue home medication. 11. History of colon cancer. Outpatient followup. 12. Diabetic neuropathy. Continue current medication. 13. Deep vein thrombosis (DVT) prophylaxis. Patient on Eliquis for atrial fibrillation. DISPOSITION: Pending further diuresis, clinical improvement, echocardiogram.
--- NOTE | 2018-09-06 19:54 | ECHO ---
DATE OF PROCEDURE: 09/06/2018 REFERRING PHYSICIAN: Dr. Nunez INDICATION: Congestive heart failure. Height 155 cm Weight 112 kg. DIMENSIONS: IVS:1.0 LV 4.4 LVPW 1.0 LA 4.0 Aorta 2.7 IVC 2.7 FINDINGS: The study is of very limited technical quality corresponding to patient's body habitus. The patient is in atrial fibrillation with heart rate between 90 an d100 beats per minute. Left ventricle is of normal size. There is overall preserved left ventricular systolic function with estimated EF 60-65%. I certainly cannot rule out subtle wall motion abnormalities. Right ventricle was poorly visualized but grossly does not appear enlarged. There is severe biatrial enlargement. Aortic valve has calcifications in it. There is some restriction of cusp mobility, but based on limited visualization I cannot provide details of its anatomy. There are also degenerative abnormalities of mitral valve with mitral annular calcifications. There is some restriction of the leaflet mobility based on 2-D imaging. Tricuspid valve appears normal. Pulmonic valve also appears normal. No pericardial effusion is noted. Inferior vena cava is markedly dilated and there is no appreciable collapse with respiration indicative of very high central venous pressure. Aortic root is normal. Aortic arch and abdominal aorta were not seen. Doppler interrogation of aortic valve reveals trace insufficiency and minimal stenosis with mean gradient 10 mmHg. Mitral valve is surprisingly functionally competent. There is approximately [id number] tricuspid insufficiency. Calculated pulmonary artery pressure is at minimum 50 mmHg which would correspond to moderate pulmonary hypertension. Trace pulmonic insufficiency is also seen. Evaluation of diastolic function is inconclusive due to underlying atrial fibrillation. CONCLUSIONS: 1. Study is of limited technical quality. 2. Preserved left ventricular systolic function with post estimated LVEF 60-65%. 3. Unable to comment on the right ventricular function. 4. Calcifications in aortic valve resulting in mild stenosis and trace insufficiency. 5. Prominent degenerative abnormalities of mitral valve but without significant functional impairment. 6. Very high central venous pressure and at least moderate pulmonary hypertension. 7. Severe biatrial enlargement. COMMENTS: SBE prophylaxis is not recommended.
[2018-09-06 20:00] VITALS: BP 150/75
[2018-09-06] MEDS: ATORVASTATIN 20 MG TAB PO SCH (20:21)
[2018-09-06] MEDS: rOPINIRole 0.25 MG TAB(REQUIP) PO SCH (20:24)
[2018-09-06 23:59] VITALS: BP 141/71
[2018-09-07 04:00] VITALS: BP 100/51
[2018-09-07] MEDS: LEVOTHYROXINE 100MCG TABLET (0.1MG) PO SCH (05:31)
[2018-09-07] MEDS: FUROSEMIDE 40 MG/4 ML VIAL (J1940) IV SCH ×2 (05:47→12:00)
[2018-09-07 05:49] LABS: HEMATOCRIT 29.9 % (36.0-47.0); HEMOGLOBIN 9.2 g/dl (12.0-15.5); MEAN CORPUSCULAR HEMOGLOBIN 24.3 pg (27.0-33.0); MEAN CORPUSCULAR HGB CONC 30.8 g/dl (32.0-36.5); MEAN CORPUSCULAR VOLUME 79.1 fl (80.0-96.0); PLATELET COUNT, AUTOMATED 223 10^3/uL (150-450); RED BLOOD COUNT 3.78 10^6/uL (4.00-5.40); WHITE BLOOD COUNT 5.6 10^3/uL (4.0-10.0)
[2018-09-07 06:09] LABS: BLOOD UREA NITROGEN 19 MG/DL (7-18); CALCIUM LEVEL 8.9 MG/DL (8.8-10.2); CARBON DIOXIDE LEVEL 27 MEQ/L (21-32); CHLORIDE LEVEL 103 MEQ/L (98-107); CREATININE FOR GFR 0.93 MG/DL (0.55-1.30); GLOMERULAR FILTRATION RATE > 60.0 (>39); GLUCOSE, FASTING 183 MG/DL (70-100); MAGNESIUM LEVEL 1.9 MG/DL (1.8-2.4); POTASSIUM SERUM 3.8 MEQ/L (3.5-5.1); SODIUM LEVEL 140 MEQ/L (136-145)
[2018-09-07] MEDS: HumaLOG INSULIN (NovoLOG) PER UNIT SC SCH ×3 (07:50→17:25)
[2018-09-07 08:00] VITALS: BP 116/64
[2018-09-07] MEDS: APIXABAN 5 MG TAB (ELIQUIS) PO SCH ×2 (08:45→20:37)
[2018-09-07] MEDS: PANTOPRAZOLE 40MG TAB (PROTONIX) PO SCH (08:45)
[2018-09-07] MEDS: DIGOXIN 0.125 MG TAB PO SCH (08:46)
[2018-09-07] MEDS: GABAPENTIN 100 MG CAP PO SCH ×2 (08:46→20:37)
[2018-09-07 12:00] VITALS: BP 120/85
[2018-09-07 17:00] VITALS: BP 130/73
[2018-09-07] MEDS: TORSEMIDE 20 MG TAB PO SCH (17:25)
[2018-09-07 20:00] VITALS: BP 132/73
--- NOTE | 2018-09-07 20:14 | IPNPDOC ---
Text Note Date of Service The patient was seen on 09/07/18. NOTE Respiration improved. Denies any chest pain, pressure or discomfort. Denies any fevers or chills. Reported lower extremity edema improved. Responding well to diuretics. PHYSICAL EXAMINATION: GENERAL: Patient morbidly obese, alert, comfortable, in no acute distress. HEENT: Normocephalic, atraumatic. PULMONARY: Bilaterally clear. Diminished breath sounds bilateral base. CARDIAC: Regular, S1, S2. ABDOMEN: Soft, nontender. Positive bowel sounds. EXTREMITIES: 1+ edema bilateral lower extremities. ASSESSMENT AND PLAN: This is a 73-year-old female patient with underlying medica l history of chronic systolic congestive heart failure (CHF) with ejection fraction of 50%, chronic obstructive pulmonary disease (COPD), non-oxygen (non-O2) dependent, dyslipidemia, diabetes mellitus type 2, morbid obesity, hypothyroidism, atrial fibrillation, hypertension, admitted with acute CHF exacerbation. PROBLEMS: 1. Acute CHF exacerbation with systolic dysfunction. Ejection fraction (EF) of 50%, switched to PO diuretics, echocardiogram, serial cardiac enzymes, strict intake and output, daily weight. 2. Chronic obstructive pulmonary disease. Non-oxygen dependent. Patient does not have any wheeze at this time. Continue home medication. Nebulizer treatment as needed. 3. Paroxysmal atrial fibrillation. Continue anticoagulation with Eliquis. Continue digoxin. Digoxin level appreciated. 4. Diabetes mellitus. Holding oral medication. Insulin according to protocol. 5. Hypothyroidism. Thyroid profile appreciated. Continue Synthroid. 6. Morbid obesity. Complicating care. 7. Dyslipidemia. Continue statin. 8. Obstructive sleep apnea. TATA protocol. Continue home continuous positive airway pressure (CPAP). 9. Gastroesophageal reflux disease (GERD). Continue proton pump inhibitor (PPI). 10. Restless legs. Continue home medication. 11. History of colon cancer. Outpatient followup. 12. Diabetic neuropathy. Continue current medication. 13. Deep vein thrombosis (DVT) prophylaxis. Patient on Eliquis for atrial fibrillation. DISPOSITION: Pending further diuresis, clinical improvement. likely Dc in 24-48 hr VS,Fishbone, I+O VS, Fishbone, I+O Laboratory Tests 09/07/18 05:23 Red Blood Count 3.78 L, Mean Corpuscular Volume 79.1 L, Mean Corpuscular Hemoglobin 24.3 L, Mean Corpuscular Hemoglobin Concent 30.8 L, Red Cell Distribution Width 17.0 H, Calcium Level 8.9 Vital Signs Date Time Temp Pulse Resp B/P (MAP) Pulse Ox O2 Delivery O2 Flow Rate FiO2 09/07/18 17:00 88 93 Room Air 09/07/18 17:00 98.3 20 130/73 (92) I&O- Last 24 Hours up to 6 AM 09/07/18 06:00 Intake Total 1360 ml Output Total 5600 ml Balance -4240 ml SD NUNEZ MD Sep 07, 2018 20:14
[2018-09-07] MEDS: rOPINIRole 0.25 MG TAB(REQUIP) PO SCH (20:37)
[2018-09-07] MEDS: ATORVASTATIN 20 MG TAB PO SCH (20:37)
[2018-09-07 23:59] VITALS: BP 120/64
[2018-09-08 04:00] VITALS: BP 134/63
[2018-09-08] MEDS: TORSEMIDE 20 MG TAB PO SCH (05:43)
[2018-09-08] MEDS: LEVOTHYROXINE 100MCG TABLET (0.1MG) PO SCH (05:43)
[2018-09-08 05:50] LABS: HEMATOCRIT 30.6 % (36.0-47.0); HEMOGLOBIN 9.4 g/dl (12.0-15.5); MEAN CORPUSCULAR HEMOGLOBIN 24.4 pg (27.0-33.0); MEAN CORPUSCULAR HGB CONC 30.7 g/dl (32.0-36.5); MEAN CORPUSCULAR VOLUME 79.5 fl (80.0-96.0); PLATELET COUNT, AUTOMATED 227 10^3/uL (150-450); RED BLOOD COUNT 3.85 10^6/uL (4.00-5.40); WHITE BLOOD COUNT 6.2 10^3/uL (4.0-10.0)
[2018-09-08 06:13] LABS: BLOOD UREA NITROGEN 21 MG/DL (7-18); CALCIUM LEVEL 8.9 MG/DL (8.8-10.2); CARBON DIOXIDE LEVEL 30 MEQ/L (21-32); CHLORIDE LEVEL 100 MEQ/L (98-107); CREATININE FOR GFR 0.96 MG/DL (0.55-1.30); GLOMERULAR FILTRATION RATE > 60.0 (>39); GLUCOSE, FASTING 178 MG/DL (70-100); MAGNESIUM LEVEL 1.8 MG/DL (1.8-2.4); POTASSIUM SERUM 3.6 MEQ/L (3.5-5.1); SODIUM LEVEL 136 MEQ/L (136-145)
[2018-09-08 08:00] VITALS: BP 132/82
[2018-09-08] MEDS: GABAPENTIN 100 MG CAP PO SCH (08:02)
[2018-09-08] MEDS: DIGOXIN 0.125 MG TAB PO SCH (08:03)
[2018-09-08] MEDS: APIXABAN 5 MG TAB (ELIQUIS) PO SCH (08:03)
[2018-09-08] MEDS: PANTOPRAZOLE 40MG TAB (PROTONIX) PO SCH (08:03)
[2018-09-08] MEDS: HumaLOG INSULIN (NovoLOG) PER UNIT SC SCH ×2 (08:04→12:06)
[2018-09-08] MEDS ORDERED: POTASSIUM CHLORIDE 10 MEQ SR TABLET PO ONE (09:00)
[2018-09-08] MEDS ORDERED: MAG SULF 1GM/100ML (MAG RUN) 1 GM in APPROPRIATE DILUENT 1 EA IV ONE (09:00)
[2018-09-08] MEDS: LOPERAMIDE 2 MG CAP PO PRN (09:10)
[2018-09-08] MEDS ORDERED: TORS20TA2 PO (11:43)
[2018-09-08 12:00] VITALS: BP 113/60
--- NOTE | 2018-09-08 16:59 | DSES ---
DATE OF ADMISSION: 09/07/2018 DATE OF DISCHARGE: 09/08/2018 PATTERNMAKER: Dr. Ildefonso George PRIMARY CARE PROVIDER: Dr. Cal Hernandez FINAL DIAGNOSES: 1. Acute congestive heart failure exacerbation with diastolic dysfunction. Preserved ejection fraction. Likely secondary to pulmonary artery hypertension. Ejection fraction 60-65%. 2. Chronic obstructive pulmonary disease. 3. Paroxysmal atrial fibrillation. 4. Diabetes mellitus. 5. Hypothyroidism. 6. Morbid obesity. 7. Dyslipidemia. 8. Obstructive sleep apnea, on continuous positive airway pressure. 9. Gastroesophageal reflux disease. 10. Restless legs. 11. History of colon cancer. 12. Diabetes with diabetic neuropathy. HISTORY OF PRESENT ILLNESS: This is a 68-year-old female patient with underlying medical history of congestive heart failure (CHF) with previous ejection fraction of 50%, chronic obstructive pulmonary disease (COPD), not on home oxygen dyslipidemia, hypertension, diabetes, atrial fibrillation, colon cancer, status post colectomy 2018, hypothyroidism, history of sleep apnea, on continuous positive airway pressure (CPAP), gastroesophageal reflux disease (GERD), arthritis, gout, diabetic neuropathy, who presented to the emergency room with shortness of breath for the last month or so, worsening over the last 3 weeks. Claims she takes all her medication, and her diet has been fairly good, but upon verification, patient's pharmacy stated that there are some medications, including diuretic, that patient has not filled for awhile. Denies any chest pain, pressure, or discomfort. Reported lower extremity swelling. Had paroxysmal nocturnal dyspnea with increased leg swelling. Was given Lasix in the emergency department. HOSPITAL COURSE: Patient was admitted to the hospital. Serial cardiac enzymes were done to be negative. Patient was aggressively diuresed. Echo was done, showing improved ejection fraction but likely with evidence of pulmonary artery hypertension and right heart failure. Strict intake and output, daily weights were appreciated. Telemetry was appreciated. Patient's condition gradually improved. Passed physical therapy. Home medication was continued as well as CPAP was also continued. Patient currently feels comfortable. Almost back to baseline with still some lower extremity edema. Otherwise comfortable, to be discharged for further care as outpatient. VITAL SIGNS: Temperature 98.1, pulse 86, respirations 18, blood pressure 113/60, pulse oximetry 96% on room air. LABORATORY DATA: WBC 6.2, hemoglobin and hematocrit 9.4/30.6, platelets 227. Chemistry: Sodium 136, potassium 3.6, chloride 100, bicarbonate 30, BUN 21, creatinine 0.96. PHYSICAL EXAMINATION: GENERAL: Patient obese, alert, comfortable in no acute distress. HEENT: Normocephalic, atraumatic. PULMONARY: Diminished breath sounds, bilateral base. CARDIAC: Regular, S1, S2. ABDOMEN: Soft, nontender. Positive bowel sounds. EXTREMITIES: Edema 1+, bilateral lower extremities. DISCHARGE MEDICATIONS: - torsemide 20 mg by mouth twice a day for 5 more days, then resume 20 mg by mouth daily Followup with primary care provider for further adjustments of diuretic, recheck of kidney function. Daily weight. - Continue Ventolin inhaler four times a day as needed - albuterol nebulizer treatment four times a day as needed - Eliquis 5 mg by mouth twice a day - Lipitor 40 mg by mouth at bedtime - digoxin 125 mcg by mouth daily - Neurontin 100 mg by mouth twice a day - glipizide 5 mg by mouth daily - Lantus insulin subcutaneous twice a day - Synthroid 100 mcg by mouth daily - loperamide 2 mg by mouth at bedtime - melatonin 3 mg by mouth at bedtime - metformin 1000 mg by mouth twice a day - metoprolol 25 mg by mouth twice a day - Protonix 40 mg by mouth daily - Requip 0.5 mg by mouth at bedtime - trazodone 50 mg by mouth at bedtime as needed DISCHARGE INSTRUCTIONS: Please see primary care provider. Please take medication as directed. Check blood pressure and adjust medication as per primary care provider. Check kidney function, electrolytes with primary care provider in 7 days. Daily weight. Call provider if weight gain greater than 3 pounds. Return if symptoms worsen.
== END 2018-09-08 13:11 | disposition home or self-care (01) | DRG 292 ==
LOC: M ED 15:39 → M ED INP 18:51 → M PCU 21:32 → OBSVTOIN 09-07 07:15
PROVIDERS: ADMIT Internal Medicine; ATTEND Hospitalist
DX: I11.0 Hypertensive heart disease with heart failure (principal); Z68.42 Body mass index [BMI] 45.0-49.9, adult; I50.23 Acute on chronic systolic (congestive) heart failure; J44.9 Chronic obstructive pulmonary disease, unspecified; E78.5 Hyperlipidemia, unspecified; E11.40 Type 2 diabetes mellitus with diabetic neuropathy, unspecified; I48.91 Unspecified atrial fibrillation; E03.9 Hypothyroidism, unspecified; G47.33 Obstructive sleep apnea (adult) (pediatric); K21.9 Gastro-esophageal reflux disease without esophagitis; E66.01 Morbid (severe) obesity due to excess calories; I27.20 Pulmonary hypertension, unspecified; M19.90 Unspecified osteoarthritis, unspecified site; M10.9 Gout, unspecified; Z85.038 Personal history of other malignant neoplasm of large intestine; Z90.49 Acquired absence of other specified parts of digestive tract; Z87.891 Personal history of nicotine dependence; Z79.4 Long term (current) use of insulin; Z79.01 Long term (current) use of anticoagulants; Z79.899 Other long term (current) drug therapy

== ENCOUNTER → 2018-09-05 | Outpatient (CLI) | payer MEDICARE ==
[~2018-09-05] MED LIST changes: -ACETAMINOPHEN 325 MG TAB PO PRN; -ACETYLCHOLINE OPHTH SOLN 1% 2ML (MIOCHOL-E) As Ordered ONE; +ADVO0.5M2 SC; +ALBU83IN INH; -ATOR40TA PO; +ATOR40TA75 PO; -AcetaZOLAMIDE 500 MG ER CAP PO ONE; -BALANCED SALT IRRIGATION SOLUTION 500ML BAG (FOR OR EYE MACHINE) As Ordered ONE; -CEFUROXIME 1MG/0.1ML INTRACAMERAL INJ As Ordered ONE; +CHOL4POW4 PO; -CYCLOPENTOLATE 2% OPHTH SOLN 2ML BTL OD ONE; +DIGO0.12 PO; +ELIQ5TAB PO; +FLUO10TA2 PO; +GLIP5TAB20 PO; -HEALON DUET (HEALON 10MG/ML 0.55ML & HEALON ENDOCOAT 30MG/ML 0.85ML) As Ordered ONE; -HumaLOG INSULIN (NovoLOG) PER UNIT As Ordered ONE; -HumaLOG INSULIN (NovoLOG) PER UNIT SC ONE; +INSULANT SC; +IPRA0.00 INH; -IPRASOL4; +IRON65TA PO; -KETOROLAC 0.5% OPHTH SOLN OD ONE; -LIDOCAINE 1% SDV 5 ML VIAL As Ordered ONE; -LIDOCAINE 4% INJ 5 ML AMP OU ONE; +LOPE2CA PO; -LR 500 ML IV SCH; +MELA3TAB49 PO; -MELO7.5T6 PO; +MELO7.5T7 PO; +METF-723 PO; -METF1000 PO; +METF10004 PO; +METO1TAB87 PO; +METO25TA4 PO; -MIDAZOLAM INJ 2 MG/2 ML VIAL (J2250) As Ordered ONE; +NEUR100C PO; -OFLOXACIN 0.3 % (OCUFLOX) OPTH SOL 5ML OD ONE; -PANT40TA2 PO; +PANT40TA3 PO; -PHENYLEPHRINE 2.5% OPHTH SOL 2ML OD ONE; +POTA10TA67 PO; -POVIDONE-IODINE 5% OPHTH PREP SOL 30ML As Ordered ONE; -PROPARACAINE 0.5% OPHTH SOL 15ML OD PRN; +TRAZ-160 PO; -TRAZ50TA4 PO; -TRIMETHOBENZAMIDE 300 MG CAP PO PRN; -TROPICAMIDE 1% OPHTH SOLN 2ML OD ONE; +VENTAER INH; +[UNRECOGNIZED DRUG - CODE] PO; -fentaNYL 100 MCG/2 ML INJECTION (J3010) As Ordered ONE
--- NOTE | 2018-09-05 15:16 | REP ---
Clinical: Shortness of breath. Technique: PA and lateral. Comparison: 10/29/2017. Findings: Moderate right pleural effusion and a presumed passive atelectasis appreciated. Trace left basilar atelectasis and possible small layering left effusion cannot be excluded. The increased interstitial markings and cephalization suggests pulmonary vascular congestion and interstitial edema. No pneumothorax. Skeletal structures demonstrate osteopenia and age-related changes. Impression: Findings suggest pulmonary vascular congestion and interstitial edema including moderate right pleural effusion, possible small layering left effusion and bibasilar passive atelectasis. Electronically Signed by Trevon Ohara MD 09/05/2018 03:07 P
== END ==
LOC: M SMT 14:37
PROVIDERS: ATTEND Internal Medicine Pulmonary Disease
DX: R06.02 Shortness of breath (principal); J90 Pleural effusion, not elsewhere classified; M85.80 Other specified disorders of bone density and structure, unspecified site

== ENCOUNTER → 2018-10-05 | Outpatient (CLI) | payer MEDICARE ==
[~2018-10-05] MED LIST changes: -/RANI15TA PO; -/ROPI1TA PO; +ADVO0.5M2 SC; +ALBU83IN INH; +GASTROGRAFIN SOLUTION 30ML (Q9963) As Ordered ONE; +GLIP5TAB20 PO; +ISOVUE-370 76% 100ML VIAL (Q9967) As Ordered ONE; +METF-723 PO; +METO25TA4 PO; +RANI1TAB17 PO; +REQU1TAB16 PO; +VENTAER INH
--- NOTE | 2018-10-05 15:14 | REP ---
CT ABDOMEN/PELVIS WITH IV AND ORAL CONTRAST: HISTORY: Restage colon carcinoma. Comparison is made with images obtained as part of CT chest from October 27, 2017. No comparison CT abdomen. Patient is status post right colon resection for moderately differentiated adenocarcinoma of the ascending colon on September 26, 2017. CT CONTRAST DOSE: 100 mL of intravenous Isovue 370. CT FINDINGS: Preliminary digital family literacy coordinator radiograph is unremarkable. There is a small right pleural effusion. A moderate-sized hiatal hernia is noted. The spleen is enlarged measuring 17.8 cm in greatest transverse dimension. The liver is not enlarged overall. Left lobe is somewhat hypertrophied. Liver has a coarse texture, and there are two small hypervascular nodules in the left lobe , measuring 0.6 and 0.9 cm. There is a similar small hypervascular lesion in the right lobe measuring 0.8 cm. These could be hemangiomas or other hypervascular liver lesions. They are not visible previously although the prior studies were obtained at different post contrast intervals. Main portal vein is somewhat dilated, 2 cm. No adrenal lesion is seen. No pancreatic abnormalities observed. No abnormalities noted in the gallbladder. The kidneys enhance symmetrically and are morphologically intact. There is a paraesophageal node measuring 8 mm and shortness dimension. A retrocrural lymph node is visible, which is normal in size. There is mild periaortic adenopathy. The largest periaortic lymph node measures 12 mm in short-axis dimension. There is a clustering of periaortic nodes which must be considered suspicious. No pelvic or inguinal adenopathy is appreciated. Status post right colectomy. No perianastomotic or other colonic mass lesion is seen. There is left colonic diverticulosis. This is fairly extensive in the sigmoid colon without CT evidence of diverticulitis. Incidental note is made of a homogeneous fat density nodule in one of the jejunal loops in the central abdomen consistent with a benign jejunal lipoma. This lipoma measures 2.3 cm in greatest diameter. No uterine or ovarian abnormality is seen. Urinary bladder is intact. No bony destructive lesion is appreciated. IMPRESSION: 1. There is mild retroperitoneal lymphadenopathy which must be considered suspicious for metastatic adenopathy. 2. The left lobe of the liver is prominent. Main portal vein is somewhat dilated. The spleen is enlarged. Question portal hypertension. There are several small hypervascular nodules in the liver of uncertain significance. Electronically Signed by Rai Geller MD 10/05/2018 04:56 P
== END ==
LOC: M RAD 11:58
PROVIDERS: ATTEND Internal Medicine Hematology & Oncology
DX: C18.2 Malignant neoplasm of ascending colon (principal); R16.1 Splenomegaly, not elsewhere classified; R59.0 Localized enlarged lymph nodes; R93.2 Abnormal findings on diagnostic imaging of liver and biliary tract; R06.02 Shortness of breath
CPT/HCPCS: 74177; Q9963; Q9967

== ENCOUNTER → 2018-10-05 | Outpatient (CLI) | payer MEDICARE ==
[~2018-10-05] MED LIST changes: -GASTROGRAFIN SOLUTION 30ML (Q9963) As Ordered ONE; -ISOVUE-370 76% 100ML VIAL (Q9967) As Ordered ONE
[2018-10-05 13:59] LABS: BASO # 0.1 10^3/uL (0.0-0.2); BASO % 0.7 % (0.0-1.0); EOS # 0.1 10^3/uL (0.0-0.50); EOS % 1.9 % (0.0-3.0); HEMATOCRIT 32.3 % (36.0-47.0); HEMOGLOBIN 9.7 g/dl (12.0-15.5); LYMPH # 0.8 10^3/uL (1.5-4.5); MEAN CORPUSCULAR HEMOGLOBIN 24.3 pg (27.0-33.0); MONO # 0.6 10^3/uL (0.0-0.8); MONO % 9.1 % (0.0-5.0); NEUTROPHILS # 5.1 10^3/uL (1.8-7.7); NEUTROPHILS % 75.9 % (36.0-66.0); PLATELET COUNT, AUTOMATED 244 10^3/uL (150-450); RED BLOOD COUNT 3.99 10^6/uL (4.00-5.40); WHITE BLOOD COUNT 6.7 10^3/uL (4.0-10.0)
[2018-10-05 14:28] LABS: INR 1.7; PROTHROMBIN TIME 20.3 SECONDS (12.1-14.4)
[2018-10-05 14:39] LABS: ALBUMIN 3.3 GM/DL (3.2-5.2); BILIRUBIN,TOTAL 0.7 MG/DL (0.2-1.0); CALCIUM LEVEL 7.8 MG/DL (8.8-10.2); CHOLESTEROL RISK RATIO 2.869 (<5); CREATININE FOR GFR 1.3 MG/DL (0.55-1.30); DIGOXIN LEVEL 0.3 NG/ML (0.5-2.0); FREE T4 1.6 NG/DL (0.76-1.46); GLOMERULAR FILTRATION RATE 42.5 (>39); POTASSIUM SERUM 3.8 MEQ/L (3.5-5.1); THYROID STIMULATING HORMONE 6.52 uIU/ML (0.358-3.740); TOTAL PROTEIN 8.7 GM/DL (6.4-8.2)
== END ==
LOC: M SMT 10:32
PROVIDERS: ATTEND Physician Assistant Medical
DX: R53.83 Other fatigue (principal); I10 Essential (primary) hypertension; E78.2 Mixed hyperlipidemia; E03.9 Hypothyroidism, unspecified; I50.9 Heart failure, unspecified

== ENCOUNTER → 2018-10-05 | Outpatient (CLI) | payer MEDICARE | LOC: M SMT 10:36 | PROVIDERS: ATTEND Internal Medicine Cardiovascular Disease | DX: I50.9 Heart failure, unspecified (principal); R06.03 Acute respiratory distress ==

== ENCOUNTER → 2019-04-25 | Outpatient (CLI) | payer MEDICARE ==
[~2019-04-25] MED LIST changes: +GASTROGRAFIN SOLUTION 30ML (Q9963) As Ordered ONE; -TRAZ-160 PO; +TRAZ-252 PO
--- NOTE | 2019-04-26 08:59 | REP ---
CT chest without contrast: History: Restaging adenocarcinoma of the colon, stage IIIA. Comparison CT chest study October 27, 2017. CT findings: There are scattered normal-sized stable mediastinal lymph nodes. Some of these are less prominent than on the 2018 study. There is a moderate size hiatal hernia. Mitral valve prosthesis is seen. Coronary artery vascular calcification and aortic vascular calcification are noted. There is no evidence of pleural or pericardial effusion. No significant pulmonary nodule is appreciated. There is a calcified granuloma in the left upper lobe posteriorly. There is another tiny granulomatous calcification in the right upper lobe. No lung mass or infiltrate is seen. No bony destructive lesion is seen. There are degenerative changes in the thoracic spine. Impression: Moderate to large hiatal hernia. Vascular calcification. No active disease. Electronically Signed by Rai Geller MD 04/26/2019 10:15 A
--- NOTE | 2019-04-26 09:23 | REP ---
CT abdomen and pelvis with oral but without IV contrast: History: Restaging adenocarcinoma of the colon, stage III. Comparison CT study October 05, 2018. CT findings: No focal liver mass lesion is seen on this noncontrast study. A hiatal hernia is again noted. Prominent left lobe of the liver again noted. There is radiopaque material layering in the dependent portion of the gallbladder consistent with gravel like calculi or possibly sludge. No pancreatic lesion is seen. There is a portacaval lymph node in the right upper quadrant which has decreased from a short axis dimension of 15 mm September 2018 to 11 mm today. There is a similar decrease in size of some of the periaortic lymph nodes. No new adenopathy or progressive change is seen. A left periaortic lymph node has decreased from 12 to 7 mm in short axis dimension. The previously noted benign lipoma in the lumen of the jejunum is again seen measuring 19 mm in diameter. No evidence of a small bowel obstruction. No other large or small bowel mass lesion is observed. There is extensive diverticulosis in the left colon without CT evidence of diverticulitis. The right colon is surgically absent. No pelvic mass or adenopathy is seen. There is mild bilateral inguinal adenopathy visible. The largest left inguinal lymph node measures 18 mm in short axis dimension today, 21 mm previously. The largest right inguinal lymph node measures 15 mm in short axis dimension on coronal image, 19 mm previously. Impression: Some improvement in the previously noted retroperitoneal adenopathy. Bilateral inguinal adenopathy perhaps slightly improved. No evidence of progression or new lesion. Cholelithiasis. No liver mass visible on this noncontrast study. Hiatal hernia. Left colonic diverticulosis. Electronically Signed by Rai Geller MD 04/26/2019 10:16 A
== END ==
LOC: M RAD 14:50
PROVIDERS: ATTEND Nurse Practitioner Family
DX: C18.9 Malignant neoplasm of colon, unspecified (principal)
CPT/HCPCS: 71250; 74176; Q9963

== ENCOUNTER 2019-12-09 11:07 | Inpatient (IN) | payer MEDICARE, OTHER ==
[~2019-12-09] VITALS: Ht 157.5 cm; Wt 115.9 kg
[2019-12-09] VITALS (10 sets, daily range): BP systolic 105–136; BP diastolic 63–75; O2SAT 91–94
[~2019-12-09 11:07] MED LIST changes: -DIGO0.12 PO; +DIGO0.123 PO; -GASTROGRAFIN SOLUTION 30ML (Q9963) As Ordered ONE; +LEVO137T2 PO; -ROPI0.5T PO; +ROPI0.5T3 PO
[2019-12-09] MEDS ORDERED: FARX1TAB3 PO (11:34)
[2019-12-09] MEDS ORDERED: TRES1INJ2 SQ (11:34)
[2019-12-09 11:47] LABS: VENOUS BASE EXCESS -1.2 (-2.0-2.0); VENOUS HCO3 24.6 MEQ/L (23.0-27.0); VENOUS O2 SATURATION 90.5 % (60.0-80.0); VENOUS PARTIAL PRESSURE CO2 46.8 mmHg (38.0-50.0); VENOUS PARTIAL PRESSURE O2 63.8 mmHg (30.0-50.0); VENOUS PH 7.338 UNITS (7.330-7.430); VENOUS STANDARD HCO3 23.3 MEQ/L
[2019-12-09 11:59] LABS: BASO # 0.1 10^3/uL (0.0-0.2); BASO % 0.8 % (0.0-1.0); EOS # 0.1 10^3/uL (0.0-0.5); HEMATOCRIT 24.1 % (36.0-47.0); LYMPH # 0.7 10^3/uL (1.5-5.0); LYMPH % 11.1 % (24.0-44.0); MEAN CORPUSCULAR HEMOGLOBIN 23.6 pg (27.0-33.0); MEAN CORPUSCULAR HGB CONC 28.2 g/dl (32.0-36.5); MEAN CORPUSCULAR VOLUME 83.7 fl (80.0-96.0); MONO # 0.5 10^3/uL (0.0-0.8); MONO % 8.2 % (0.0-5.0); NEUTROPHILS # 4.7 10^3/uL (1.5-8.5); NEUTROPHILS % 77.2 % (36.0-66.0); PLATELET COUNT, AUTOMATED 286 10^3/uL (150-450); RED BLOOD COUNT 2.88 10^6/uL (4.00-5.40); WHITE BLOOD COUNT 6.1 10^3/uL (4.0-10.0)
[2019-12-09 12:01] LABS: HEMOGLOBIN 6.8 g/dl (12.0-15.5)
--- NOTE | 2019-12-09 12:09 | REP ---
Clinical: Cough and dyspnea. Comparison: 09/05/2018. Findings: Cardiomegaly is appreciated. Opacity involving the right lower lung zone suggests effusion and passive atelectasis. No pneumothorax. Skeletal structures intact. Impression: Stable cardiomegaly. Moderate right pleural effusion and passive atelectasis. Electronically Signed by Trevon Ohara MD 12/09/2019 12:01 P
[2019-12-09 12:41] LABS: ALBUMIN 3.4 GM/DL (3.2-5.2); BILIRUBIN,DIRECT 0.5 MG/DL (0.0-0.2); BILIRUBIN,TOTAL 1.1 MG/DL (0.2-1.0); THYROID STIMULATING HORMONE 8.49 uIU/ML (0.358-3.740); THYROXINE (T4) 9.3 UG/DL (4.5-12.0); TOTAL PROTEIN 8.2 GM/DL (6.4-8.2)
[2019-12-09] MEDS ORDERED: DEXTROSE 50% 50 ML SYRINGE IV PRN (14:00)
[2019-12-09] MEDS ORDERED: GLUCOSE 4GM CHEW TABLET PO PRN (14:00)
[2019-12-09] MEDS ORDERED: GLUCAGON INJ 1MG VIAL SC PRN (14:00)
--- NOTE | 2019-12-09 14:18 | HPEPDOC ---
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 She also complained to them that she continued to have increased shortness of breath. . She said that she is compliant with her medications and diet. She has had a recent echo in 2019. It was found that she has mild to moderate tricuspid regurgitation, she has pulmonary artery pressures of 50, so she has moderate pulmonary hypertension. She also has mild diastolic heart failure. She complains of on and off increased swelling in her lower extremities as well. Her exercise tolerance has decreased. This time she comes to the ER and was found to be anemic with a hemoglobin of less than 7, which could have explained her anemia. She also has moderate right-sided pleural effusion. The patient currently is being admitted for shortness of breath, likely multifactorial with symptomatic anemia, moderate pulmonary hypertension and heart failure. She denied any blood in the stool. But stool guaiac in the ER has been positive. PAST MEDICAL HISTORY: 1. Chronic systolic/diastolic heart failure, ejection fraction of 50%, possibility of cor pulmonale because. Pressures are 50 2. Non oxygen dependent COPD. 3. Hyperlipidemia. 4. Hypertension. 5. Diabetes. 6. Atrial fibrillation. 7. Colon cancer, status post colectomy on 09/15/2018, with partial folflox treatment 8. Hypothyroidism. 9. History of obstructive sleep apnea on CPAP. 10. Gastroesophageal reflux disease (GERD). 11. Arthritis. 12. Gout. 13. Diabetic neuropathy. ALLERGIES: She has no known drug allergies. FAMILY HISTORY: Noncontributory. SOCIAL HISTORY: The patient used to smoke two packs a day for 30 years, quit many years ago. Denies alcohol or illicit drugs. MEDICATIONS: She takes at home: - Lantus of an unknown dose twice a day - metoprolol tartrate 25 mg by mouth twice a day - torsemide - digoxin 125 mcg by mouth daily - albuterol two puffs inhaled four times a day as needed - melatonin 3 mg by mouth at bedtime - albuterol as needed - Apixaban 5 mg by mouth twice a day - atorvastatin 40 mg by mouth at bedtime - gabapentin 100 mg by mouth twice a day - glipizide 5 mg by mouth daily - Synthroid - loperamide 2 mg by mouth every 6 hours as needed - metformin 1000 mg by mouth twice a day - pantoprazole 40 mg by mouth daily - ropinirole 0.5 mg by mouth at bedtime - trazodone 50 mg by mouth at bedtime as needed REVIEW OF SYSTEMS: Negative for all ten major systems except what is mentioned in the history of present illness. PHYSICAL EXAMINATION: Head is atraumatic, normocephalic. Neck is supple with no jugular venous dis tention (JVD). Lungs clear to auscultation except for mild bibasilar decreased breath sounds. Heart. S1, S2 audible. No murmurs appreciated. Abdomen is soft. Positive bowel sounds. Extremities. +2 pedal edema. Skin is intact. Neurologic examination, the patient is awake, alert and oriented times three. Labs reviewed Radiology reviewed Assessment and plan 1. Progressive shortness of breath. Could be multifactorial. The patient has symptomatic anemia with hemoglobin of 6.6. The patient has a PA pressures of 50, with moderate pulmonary hypertension and the patient also has moderate tricuspid regurgitation, and history of systolic/diastolic heart failure. The patient takes torsemide at home and currently the patient will be getting 1 unit of PRBC along with that, the patient will get 40 of IV Lasix after the PRBC. We'll treat the individual cause. 2. Symptomatic anemia. The patient's hemoglobin is less than 7 at 6.6. Right now. The patient has had a history of colon cancer, status post colectomy and currently the patient has been on oral anticoagulant as of the A. fib history. Stool for local blood was positive in the ER and for that reason, her oral anti- cognition and will be discontinued. Will trend hemoglobin every 12 hours. Will get surgery consult for possible colonoscopy. The patient has not had a follow- up colonoscopy after the surgery. 3. Moderate pulmonary hypertension. Given patient's lower extremity edema, history as well as moderate effusion with shortness of breath. Patient will be continued on diuretics with 40 twice a day IV of Lasix. Input output monitoring. We will continue to monitor the lites as well. 4. Chronic diarrhea. The patient has a history of diarrhea likely exacerbated by surgical resection of her colon cancer. She will continue to use Imodium as needed. 5. Stage III adenocarcinoma of the colon, diagnosed September, : She received a truncated course of FOLFOX chemotherapy. The patient is approximately 2 years out from her diagnosis of colon cancer. She was due to receive a colonoscopy but that was rescheduled due to the COVID19 pandemic. Patient has been advised by oncology for the first 5 years after diagnosis and treatment, the NCCN guidelines recommend CEA and CT chest/abdomen/pelvis every 6-12 months. Given the patient's history of retroperitoneal lymphadenopathy, oncology wanted torepeat CT abdomen/pelvis with oral contrast in [address] chest without contrast was within normal limits in April,. 6. Lower extremity edema. Again, multifactorial This may be secondary to the patient's congestive heart failure, pulmonary hypertension. . We'll repeat a 2-D echo 7. Hypothyroidism. We will repeat her TSH and decide about dose of synthyriod. Disposition unknown at this time Vital Signs Vital Signs Date Time Temp Pulse Resp B/P (MAP) Pulse Ox O2 Delivery O2 Flow Rate FiO2 12/09/19 13:30 97.8 92 16 129/75 (93) 93 Room Air Laboratory Data Labs 24H Laboratory Tests 2 12/09/19 11:39: POC Glucose (Misc Panel) 216H, POC Sodium (Misc Panel) 140, POC Potassium (Misc Panel) 3.6, POC Chloride (Misc Panel) 98, POC Total CO2 (Misc Panel) 24.0, POC Blood Urea Nitrogen (Misc Panel 39H, POC Ionized Calcium (Misc Panel) 4.4L, POC Creatinine (Misc Panel) 1.7H, POC Hematocrit (Misc Panel) 26.0L, Digoxin Level 0.6 12/09/19 11:40: Immature Granulocyte % (Auto) 0.7, Neutrophils (%) (Auto) 77.2H, Lymphocytes (%) (Auto) 11.1L, Monocytes (%) (Auto) 8.2H, Eosinophils (%) (Auto) 2.0, Basophils (%) (Auto) 0.8, Neutrophils # (Auto) 4.7, Lymphocytes # (Auto) 0.7L, Monocytes # (Auto) 0.5, Eosinophils # (Auto) 0.1, Basophils # (Auto) 0.1, Nucleated Red Blood Cells % (auto) 0.0, Blood Gas Bicarbonate Standard 23.3, Venous Blood pH 7.338, Venous Blood Partial Pressure CO2 46.8, Venous Blood Partial Pressure O2 63.8H, Venous Blood Total Carbon Dioxide 26.0, Venous Blood HCO3 24.6, Venous Blood Oxygen Saturation 90.5H, Venous Blood Base Excess -1.2, Total Bilirubin 1.1H, Direct Bilirubin 0.5H, Aspartate Amino Transf (AST/SGOT) 19, Alanine Aminotransferase (ALT/SGPT) 15, Alkaline Phosphatase 62, KN-Tpi-V-Type Natriuretic Peptide 1878H, Total Protein 8.2, Albumin 3.4, Albumin/Globulin Ratio 0.7L, Thyroid Stimulating Hormone (TSH) 8.490H, Thyroxine (T4) 9.3 12/09/19 11:43: POC Troponin I (Misc) 0.00 CBC/BMP Laboratory Tests 12/09/19 11:40 Microbiology Microbiology 12/09/19 Blood Culture, Received Pending 12/09/19 Blood Culture, Ordered Pending Home Medications Scheduled Apixaban (Eliquis) 5 Mg Tab, 5 MG PO BID Atorvastatin Calcium (Atorvastatin Calcium) 40 Mg Tablet, 40 MG PO DAILY Dapagliflozin Propanediol (Farxiga) 10 Mg Tablet, 10 MG PO DAILY Digoxin (Digoxin) 125 Mcg Tab, 125 MCG PO DAILY Gabapentin (Neurontin) 100 Mg Cap, 100 MG PO BID Glipizide (Glipizide ER) 5 Mg Tab, 5 MG PO DAILY Insulin Degludec (Tresiba Flextouch U-100) 100 Unit/1 Ml Insuln.pen, 26 UNITS SQ DAILY Levothyroxine Sodium (Levoxyl) 175 Mcg Tablet, 175 MCG PO DAILY Melatonin (Melatonin) 10 Mg Capsule, 20 MG PO QHS Metformin HCl (Metformin HCl ER) 500 Mg Tab, 1,000 MG PO BID Metolazone (Metolazone) 2.5 Mg Tablet, 2.5 MG PO 3XW MON, WED, FRI Metoprolol Tartrate (Metoprolol Tartrate) 25 Mg Tab, 25 MG PO BID Pantoprazole Sodium (Pantoprazole Sodium) 40 Mg Tab, 40 MG PO DAILY Ropinirole HCl (Ropinirole HCl) 0.5 Mg Tab, 0.5 MG PO QHS Torsemide (Torsemide) 20 Mg Tab, 40 MG PO DAILY Scheduled PRN Albuterol Sulf (Albuterol Sulfate) 2.5 Mg/3 Ml Nebu, 2.5 MG INH QID PRN for SHORTNESS OF BREATH Albuterol Sulfate (Ventolin Hfa) 108 Mcg/Act Aer, 2 PUFFS INH QID PRN for SHORTNESS OF BREATH Loperamide HCl (Anti-Diarrheal) 2 Mg Tablet, 2 MG PO Q6H PRN for DIARRHEA Allergies Coded Allergies: No Known Allergies (Verified , 11/11/16) A-FIB/CHADSVASC A-FIB History Current/History of A-Fib/PAF?: No Current PO Anticoag Therapy: No TERRI WADE MD Dec 09, 2019 14:18
[2019-12-09] MEDS ORDERED: LEVO175T19 PO (14:26)
[2019-12-09] MEDS ORDERED: CVS10CAP7 PO (14:26)
[2019-12-09] MEDS ORDERED: METO25TA PO (14:26)
[2019-12-09] MEDS ORDERED: ANTI2TAB16 PO (14:26)
[2019-12-09] MEDS ORDERED: LOPERAMIDE 2 MG CAPLET PO PRN (14:30)
[2019-12-09] MEDS ORDERED: ALBUTEROL SULFATE 2.5 MG/0.5 ML INH NEB SOLN INH PRN (14:30)
[2019-12-09] MEDS ORDERED: ALBUTEROL 90 MCG/ACT 8GM HFA INHALER INH PRN (14:30)
[2019-12-09 14:51] LABS: ALBUMIN 3.3 GM/DL (3.2-5.2); BILIRUBIN,TOTAL 1.1 MG/DL (0.2-1.0); CALCIUM LEVEL 8.8 MG/DL (8.8-10.2); CREATININE FOR GFR 1.63 MG/DL (0.55-1.30); GLOMERULAR FILTRATION RATE 32.7 (>39); PERCENT SATURATION 4.5 % (13.2-45.0); POTASSIUM SERUM 3.6 MEQ/L (3.5-5.1); TOTAL PROTEIN 7.9 GM/DL (6.4-8.2)
[2019-12-09 15:13] LABS: THYROID STIMULATING HORMONE 9.43 uIU/ML (0.358-3.740)
[2019-12-09 15:46] LABS: HEMOGLOBIN A1c 8.6 %
--- NOTE | 2019-12-09 16:56 | ECGEPIP ---
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
[2019-12-09] MEDS ORDERED: HumaLOG INSULIN (NovoLOG) PER UNIT SC SCH (17:30)
[2019-12-09] MEDS: FUROSEMIDE 40MG/4ML VIAL (J1940) IV SCH (18:33)
[2019-12-09 20:13] LABS: HEMATOCRIT 26.2 % (36.0-47.0); HEMOGLOBIN 7.6 g/dl (12.0-15.5)
[2019-12-09] MEDS: rOPINIRole 0.25 MG TAB(REQUIP) PO SCH (20:45)
[2019-12-09] MEDS: GABAPENTIN 100 MG CAP PO SCH (20:45)
[2019-12-09] MEDS: METOPROLOL TART 25 MG TABLET PO SCH (20:46)
[2019-12-10 06:00] VITALS: BP 107/70
[2019-12-10 07:05] LABS: HEMATOCRIT 26.1 % (36.0-47.0); HEMOGLOBIN 7.6 g/dl (12.0-15.5); MEAN CORPUSCULAR HEMOGLOBIN 24.2 pg (27.0-33.0); MEAN CORPUSCULAR HGB CONC 29.1 g/dl (32.0-36.5); MEAN CORPUSCULAR VOLUME 83.1 fl (80.0-96.0); PLATELET COUNT, AUTOMATED 279 10^3/uL (150-450); RED BLOOD COUNT 3.14 10^6/uL (4.00-5.40)
[2019-12-10 07:14] LABS: INR 1.87; PROTHROMBIN TIME 21.3 SECONDS (11.8-14.0)
[2019-12-10 07:30] LABS: ALBUMIN 3.2 GM/DL (3.2-5.2); BILIRUBIN,TOTAL 1.5 MG/DL (0.2-1.0); CALCIUM LEVEL 8.7 MG/DL (8.8-10.2); CREATININE FOR GFR 1.49 MG/DL (0.55-1.30); GLOMERULAR FILTRATION RATE 36.2 (>39); POTASSIUM SERUM 3.1 MEQ/L (3.5-5.1); TOTAL PROTEIN 8.3 GM/DL (6.4-8.2)
[2019-12-10] MEDS ORDERED: HumaLOG INSULIN (NovoLOG) PER UNIT SC SCH (07:30)
[2019-12-10] MEDS: FUROSEMIDE 40MG/4ML VIAL (J1940) IV SCH ×2 (08:47→17:20)
[2019-12-10] MEDS ORDERED: POTASSIUM CHLORIDE 10 MEQ SR TABLET PO ONE ×2 (09:00→11:00)
[2019-12-10] MEDS ORDERED: FUROSEMIDE 20MG/2ML VIAL (J1940) IV ONE (09:00)
[2019-12-10] MEDS: METOPROLOL TART 25 MG TABLET PO SCH ×2 (09:00→20:59)
[2019-12-10] MEDS: ATORVASTATIN 20 MG TAB PO SCH (09:07)
[2019-12-10] MEDS: HumaLOG INSULIN (NovoLOG) PER UNIT SC SCH ×4 (09:07→21:00)
[2019-12-10] MEDS: GABAPENTIN 100 MG CAP PO SCH ×2 (09:08→20:59)
[2019-12-10] MEDS: PANTOPRAZOLE 40MG TAB (PROTONIX) PO SCH (09:08)
[2019-12-10] MEDS: DIGOXIN 0.125 MG TAB PO SCH (09:09)
--- NOTE | 2019-12-10 09:34 | CR.PDOC ---
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 She also complained to them that she continued to have increased shortness of breath. . She said that she is compliant with her medications and diet. She has had a recent echo in 2019. It was found that she has mild to moderate tricuspid regurgitation, she has pulmonary artery pressures of 50, so she has moderate pulmonary hypertension. She also has mild diastolic heart failure. She complains of on and off increased swelling in her lower extremities as well. Her exercise tolerance has decreased. This time she comes to the ER and was found to be anemic with a hemoglobin of less than 7, which could have explained her anemia. She also has moderate right-sided pleural effusion. The patient currently is being admitted for shortness of breath, likely multifactorial with symptomatic anemia, moderate pulmonary hypertension and heart failure. She denied any blood in the stool. But stool guaiac in the ER has been positive. PAST MEDICAL HISTORY: 1. Chronic systolic/diastolic heart failure, ejection fraction of 50%, po ssibility of cor pulmonale because. Pressures are 50 2. Non oxygen dependent COPD. 3. Hyperlipidemia. 4. Hypertension. 5. Diabetes. 6. Atrial fibrillation. 7. Colon cancer, status post colectomy on 09/15/2018, with partial folflox treatment The patient's history starts around August 2017 where she was found to be anemic and had gone for a colonoscopy. At that time, they discovered a mass in the ascending colon. She was also found to be microcytic indices in her hemoglobin. She underwent surgery and was found to have a pt2n1a lesion. She was given the option of going on chemotherapy with the FOLFOX at [facility] or to go on adjuvant Xeloda. The patient had stopped taking this due to what she found to be an association was insomnia. She is here today to followup with us routinely for active surveillance. 8. Hypothyroidism. 9. History of obstructive sleep apnea on CPAP. 10. Gastroesophageal reflux disease (GERD). 11. Arthritis. 12. Gout. 13. Diabetic neuropathy. PAST SURGICAL HISTORY: INCLUDES: 1. Prior robotic assisted right colectomy on 09/15/2017 2. Right cataract removal ALLERGIES: Please see below. FAMILY HISTORY: Previous smoker (remote more than 20 years) HOME MEDICATIONS: Please see below. REVIEW OF SYSTEMS: GENERAL: [Denies chills, reports weight gain, reports feeling febrile yesterday]. HEENT: [Denies blurred vision and double vision. Denies ear symptoms. Denies hoarseness]. NECK: Denies any neck pain]. CARDIOVASCULAR: [Denies chest pain and palpitations]. MUSCULOSKELETAL: [Denies arthralgias, back pain and thrombophlebitis]. SKIN: [Denies rash]. NEUROLOGIC: [Denies headache, stroke and transient ischemic attack]. PSYCHIATRIC: [Denies anxiety and depression]. ENDOCRINE: [Denies thyroid disease]. HEMATOLOGY/ONCOLOGY: [Denies bleeding or clotting disorder]. HEART: [Denies any chest pains, palpitations, paroxysmal dyspnea, orthopnea]. PULMONARY: [Denies chronic cough, dyspnea and wheezing]. GASTROINTESTINAL: [Denies rectal bleeding, family history of colon cancer, constipation, diarrhea, dysphagia, heartburn and jaundice]. GENITOURINARY: [Denies dysuria, frequency, hematuria and nocturia]. ENDOCRINE: [Denies polydipsia, polyphagia, polyuria, heat or cold intolerance]. INFECTIOUS: [Denies any recent upper respiratory tract infection, UTI, need for use of antibiotics]. NUTRITION: [Reports good appetite]. PHYSICAL EXAMINATION: VITALS SIGNS: Please see below. GENERAL APPEARANCE:[Patient seen, laying in bed, awake, alert, and oriented. Comfortable, in no acute distress]. SKIN: [Warm and moist]. HEENT: [Normocephalic, atraumatic. Roland palpebral conjunctiva, anicteric sclerae. Lips and mucosa appear moist]. NECK: [Supple, no thyromegaly. No obvious jugular venous distention]. LUNGS: [Clear to auscultation bilaterally. No wheezing appreciated]. HEART: [No chest wall abnormalities. Regular rate and rhythm with no murmurs appreciated]. ABDOMEN: Abdomen is , soft, . [No hepatosplenomegaly. No umbilical or groin herniations, nondistended. No noticeable rebound or guarding. No grimacing with palpation. No rebound tenderness. No masses appreciated]. EXTREMITIES: [Extremities have no deformities. No edema identified] ANCILLARIES: . LABORATORY DATA: Please see below. IMAGING STUDIES: Last surveillance CT of the chest abdomen and pelvis that is available was done on 04/25/2019 Some improvement in the previously noted retroperitoneal adenopathy. Bilateral inguinal adenopathy perhaps slightly improved. No evidence of progression or new lesion. Cholelithiasis. No liver mass visible on this noncontrast study. Hiatal hernia. Left colonic diverticulosis. Moderate to large hiatal hernia. Vascular calcification. No active disease. IMPRESSION AND PLAN: Symptomatic anemia Patient previously had a ascending colon adenocarcinoma had the right colectomy, did not tolerate her adjuvant chemotherapy and currently is just on active surveillance. Last CEA level was done on 04/22/2019 is only 1.3. She was origin ally scheduled to have surveillance colonoscopy done but was postponed due to the Covid 19 pandemic. On this admission she was found to be profoundly anemic with a hemoglobin of 6.8, hematocrit of 24.1. Prior labs done April 2019 shows a hemoglobin of 12 and hematocrit of 36.3. She is on the PACS event for her atrial fibrillation and this was last taken 12/09/2019. I will schedule her for upper endoscopy and colonoscopy. On her chest CT she has a moderate sized hiatal hernia which can be a source of Andrew ulcer formation. Certainly we need to rule out recurrence of the colon cancer or another a synchronous lesion.. Vital Signs Vital Signs Date Time Temp Pulse Resp B/P (MAP) Pulse Ox O2 Delivery O2 Flow Rate FiO2 12/10/19 09:09 88 12/10/19 09:00 101/65 12/10/19 06:00 97.3 16 93 Room Air I&Os I&O- Last 24 Hours up to 6 AM 12/10/19 06:00 Intake Total 1458 ml Output Total 1650 ml Balance -192 ml Laboratory Data Labs 24H Laboratory Tests 2 12/09/19 11:39: POC Glucose (Misc Panel) 216H, POC Sodium (Misc Panel) 140, POC Potassium (Misc Panel) 3.6, POC Chloride (Misc Panel) 98, POC Total CO2 (Misc Panel) 24.0, POC Blood Urea Nitrogen (Misc Panel 39H, POC Ionized Calcium (Misc Panel) 4.4L, POC Creatinine (Misc Panel) 1.7H, POC Hematocrit (Misc Panel) 26.0L, Digoxin Level 0.6 12/09/19 11:40: Immature Granulocyte % (Auto) 0.7, Neutrophils (%) (Auto) 77.2H, Lymphocytes (%) (Auto) 11.1L, Monocytes (%) (Auto) 8.2H, Eosinophils (%) (Auto) 2.0, Basophils (%) (Auto) 0.8, Neutrophils # (Auto) 4.7, Lymphocytes # (Auto) 0.7L, Monocytes # (Auto) 0.5, Eosinophils # (Auto) 0.1, Basophils # (Auto) 0.1, Reticulocyte # (auto) 92.5H, Nucleated Red Blood Cells % (auto) 0.0, Percent Reticulocyte Count 3.2H, Reticulocyte Hemoglobin Equivalent 17.6L, Blood Gas Bicarbonate Standard 23.3, Venous Blood pH 7.338, Venous Blood Partial Pressure CO2 46.8, Venous Blood Partial Pressure O2 63.8H, Venous Blood Total Carbon Dioxide 26.0, Venous Blood HCO3 24.6, Venous Blood Oxygen Saturation 90.5H, Venous Blood Base Excess -1.2, Estimated Mean Plasma Glucose 200H, Hemoglobin A1c 8.6, Total Bilirubin 1.1H, Direct Bilirubin 0.5H, Aspartate Amino Transf (AST/SGOT) 19, Alanine Aminotransferase (ALT/SGPT) 15, Alkaline Phosphatase 62, [id number]-[id number]-Type Natriuretic Peptide 1878H, Total Protein 8.2, Albumin 3.4, Albumin/Globulin Ratio 0.7L, Thyroid Stimulating Hormone (TSH) 8.490H, Thyroxine (T4) 9.3 12/09/19 11:43: POC Troponin I (Misc) 0.00 12/09/19 14:07: Total Bilirubin 1.1H, Aspartate Amino Transf (AST/SGOT) 16, Alanine Aminotransferase (ALT/SGPT) 14, Alkaline Phosphatase 58, Total Protein 7.9, Albumin 3.3, Albumin/Globulin Ratio 0.7L, Thyroid Stimulating Hormone (TSH) 9.430H, Anion Gap 10, Glomerular Filtration Rate 32.7L, Lactic Acid Level 2.8*H, Calcium Level 8.8, Iron Level 19L, Total Iron Binding Capacity 420, Transferrin % Saturation 4.5L, Ferritin 9 12/09/19 16:42: Bedside Glucose (Misc Panel) 167H 12/09/19 19:44: Lactic Acid Followup at 4 Hours 2.4*H 12/09/19 21:00: Bedside Glucose (Misc Panel) 123H 12/10/19 06:30: Nucleated Red Blood Cells % (auto) 0.0, Prothrombin Time 21.3H, Prothromb Time International Ratio 1.87, Anion Gap 8, Glomerular Filtration Rate 36.2L, Calcium Level 8.7L, Total Bilirubin 1.5H, Aspartate Amino Transf (AST/SGOT) 18, Alanine Aminotransferase (ALT/SGPT) 18, Alkaline Phosphatase 57, Total Protein 8.3H, Albumin 3.2, Albumin/Globulin Ratio 0.6L CBC/BMP Laboratory Tests 12/09/19 11:40 12/09/19 14:07 12/09/19 19:44 12/10/19 06:30 Microbiology Microbiology 12/09/19 Blood Culture, Received Pending 12/09/19 Blood Culture, Received Pending Home Medications Scheduled Apixaban (Eliquis) 5 Mg Tab, 5 MG PO BID, (Reported) Atorvastatin Calcium (Atorvastatin Calcium) 40 Mg Tablet, 40 MG PO DAILY, (Reported) Dapagliflozin Propanediol (Farxiga) 10 Mg Tablet, 10 MG PO DAILY, (Reported) Digoxin (Digoxin) 125 Mcg Tab, 125 MCG PO DAILY, (Reported) Gabapentin (Neurontin) 100 Mg Cap, 100 MG PO BID, (Reported) Glipizide (Glipizide ER) 5 Mg Tab, 5 MG PO DAILY, (Reported) Insulin Degludec (Tresiba Flextouch U-100) 100 Unit/1 Ml Insuln.pen, 26 UNITS SQ DAILY, (Reported) Levothyroxine Sodium (Levoxyl) 175 Mcg Tablet, 175 MCG PO DAILY, (Reported) Melatonin (Melatonin) 10 Mg Capsule, 20 MG PO QHS, (Reported) Metformin HCl (Metformin HCl ER) 500 Mg Tab, 1,000 MG PO BID, (Reported) Metolazone (Metolazone) 2.5 Mg Tablet, 2.5 MG PO 3XW, (Reported) MON, WED, MON Metoprolol Tartrate (Metoprolol Tartrate) 25 Mg Tab, 25 MG PO BID, (Reported) Pantoprazole Sodium (Pantoprazole Sodium) 40 Mg Tab, 40 MG PO DAILY, (Reported) Ropinirole HCl (Ropinirole HCl) 0.5 Mg Tab, 0.5 MG PO QHS, (Reported) Torsemide (Torsemide) 20 Mg Tab, 40 MG PO DAILY, (Reported) Scheduled PRN Albuterol Sulf (Albuterol Sulfate) 2.5 Mg/3 Ml Nebu, 2.5 MG INH QID PRN for SHORTNESS OF BREATH, (Reported) Albuterol Sulfate (Ventolin Hfa) 108 Mcg/Act Aer, 2 PUFFS INH QID PRN for SHORTNESS OF BREATH, (Reported) Loperamide HCl (Anti-Diarrheal) 2 Mg Tablet, 2 MG PO Q6H PRN for DIARRHEA, (Reported) Allergies Coded Allergies: No Known Allergies (Verified , 11/11/16) MIGUEL ANGEL WALL MD Dec 10, 2019 09:21
--- NOTE | 2019-12-10 12:08 | IPNPDOC ---
Text Note Date of Service The patient was seen on 12/10/19. NOTE Patient was seen and examined. No overnight events. No complaints of any diar brandyn or any blood in the stool. PHYSICAL EXAMINATION: Head is atraumatic, normocephalic. Neck is supple with no jugular venous distention (JVD). Lungs clear to auscultation except for mild bibasilar decreased breath sounds. Heart. S1, S2 audible. No murmurs appreciated. Abdomen is soft. Positive bowel sounds. Extremities. +2 pedal edema. Skin is intact. Neurologic examination, the patient is awake, alert and oriented times three. Labs reviewed Radiology reviewed Assessment and plan 1. Progressive shortness of breath. Improving. Could be multifactorial. The patient has symptomatic anemia with hemoglobin of 6.6 and she is status post 1 unit of PRBC.. The patient has a PA pressures of 50, with moderate pulmonary hypertension and the patient also has moderate tricuspid regurgitation, and history of systolic/diastolic heart failure. The patient takes torsemide at home and currently the patient We'll treat the individual cause. 2. Symptomatic anemia. The patient is status post 1 unit of PRBC and hemoglobin is stable for now. The patient has had a history of colon cancer, status post colectomy and currently the patient has been on oral anticoagulant as of the A. fib history. Stool for local blood was positive in the ER and for that reason, her oral anti-cognition has been discontinued. Will trend hemoglobin every 12 hours. surgery consult for possible colonoscopy already done and they're planning to do an endoscopic as well as coloscopy tomorrow. The patient has not had a follow-up colonoscopy after the surgery. 3. Moderate pulmonary hypertension. Given patient's lower extremity edema, history as well as moderate effusion with shortness of breath. Patient will be continued on diuretics with 40 twice a day IV of Lasix. Input output monitoring. We will continue to monitor the lites as well. 4. Chronic diarrhea. The patient has a history of diarrhea likely exacerbated by surgical resection of her colon cancer. She will continue to use Imodium as needed. 5. Stage III adenocarcinoma of the colon, diagnosed September, : She received a truncated course of FOLFOX chemotherapy. The patient is approximately 2 years out from her diagnosis of colon cancer. She was due to receive a colonoscopy but that was rescheduled due to the COVID19 pandemic. Patient has been advised by oncology for the first 5 years after diagnosis and treatment, the NCCN guidelines recommend CEA and CT chest/abdomen/pelvis every 6-12 months. Given the patient's history of retroperitoneal lymphadenopathy, oncology wanted torepeat CT abdomen/pelvis with oral contrast in [address] chest without contrast was within normal limits in April,. 6. Lower extremity edema. Again, multifactorial This may be secondary to the patient's congestive heart failure, pulmonary hypertension. . We'll repeat a 2-D echo 7. Hypothyroidism. TSH. 9. As she is 74-year-old female with history of A. fib. We will continue the same dose of Synthroid. Disposition unknown at this time VS,Fishbone, I+O VS, Fishbone, I+O Laboratory Tests 12/09/19 14:07 12/09/19 19:44 12/10/19 06:30 Vital Signs Date Time Temp Pulse Resp B/P (MAP) Pulse Ox O2 Delivery O2 Flow Rate FiO2 12/10/19 09:09 88 12/10/19 09:00 101/65 12/10/19 06:00 97.3 16 93 Room Air I&O- Last 24 Hours up to 6 AM 12/10/19 05:59 Intake Total 1458 ml Output Total 1300 ml Balance 158 ml TERRI WADE MD Dec 10, 2019 12:08
[2019-12-10 12:27] VITALS: O2SAT 89
[2019-12-10] MEDS: LEVOTHYROXINE 125MCG TABLET (0.125MG) PO SCH (13:14)
[2019-12-10 14:00] VITALS: BP 102/66
[2019-12-10] MEDS ORDERED: BISACODYL 5 MG TAB PO ONE (16:00)
[2019-12-10] MEDS ORDERED: GOLYTELY SOLN 4000 ML BTL PO ONE (18:00)
--- NOTE | 2019-12-10 19:50 | ECHO ---
DATE OF PROCEDURE: 12/10/2019 REFERRING PHYSICIAN: Dr. Az Adams Height: 157 cm. Weight: 116 kg. INDICATIONS: Congestive heart failure. DIMENSIONS: Aorta: 2.8 LA: 4.4 IVS: 1.3 LV: 3.4 LVPW: 1.3 IVC: 2.8 FINDINGS: The study is of fair technical quality corresponding to patient's body habitus. The patient is in atrial fibrillation with controlled rate. Left ventricle is normal size. Mild left ventricular hypertrophy is present. Overall there is likely normal LV systolic function based on fair visualization. I certainly cannot rule out subtle wall motion abnormalities but it appears unlikely. Right ventricle does not appear grossly dilated or hypokinetic. There is severe biatrial enlargement. Aortic valve is prominently calcified. It is probably tricuspid, but the visualization was rather limited and I cannot provide details of its structure. There are also very prominent mitral annular calcifications and restrictions of mitral mobility. Functionally there is suspicion for at least mild mitral stenosis. Tricuspid and pulmonic valves appear normal. No pericardial effusion is noted. Inferior vena cava is markedly dilated, and there is no appreciable collapse with inspiration indicative of very high central venous pressure. Aortic root is normal. Aortic arch and abdominal aorta were not well seen. Doppler interrogation of aortic valve reveals trace insufficiency and trivial stenosis with mean gradient 8 mmHg. There is also trivial mitral insufficiency and mild stenosis with peak gradient across the mitral valve 13 and mean gradient 4 mmHg. [id number] tricuspid insufficiency is seen. Calculated pulmonary artery pressure is at minimum in low to mid 40s corresponding to moderate pulmonary hypertension. Pulmonic valve exhibits mild insufficiency. Evaluation of diastolic function is inconclusive due to underlying atrial fibrillation. CONCLUSIONS: 1. Study is of fair technical quality, the patient is in atrial fibrillation with controlled rate. 2. Normal left ventricular (LV) size with mild left ventricular hypertrophy (LVH) and preserved LV systolic function. 3. Prominent aortic sclerosis with minimal stenosis and trace insufficiency. 4. Degenerative abnormalities of mitral valve with functionally mild stenosis and mild insufficiency. 5. Very high central venous pressure and at least moderate pulmonary hypertension. 6. Severe biatrial enlargement. COMMENT: Subacute bacterial endocarditis (SBE) prophylaxis is not recommended. The study is suggestive of likely chronic atrial fibrillation with mild possibly even rheumatic valvular heart disease and likely secondary pulmonary hypertension.
[2019-12-10] MEDS: rOPINIRole 0.25 MG TAB(REQUIP) PO SCH (20:59)
[2019-12-10 22:00] VITALS: BP 133/65
[2019-12-11] VITALS (13 sets, daily range): BP systolic 103–132; BP diastolic 59–72; O2SAT 95
[2019-12-11] MEDS: LEVOTHYROXINE 125MCG TABLET (0.125MG) PO SCH (05:59)
[2019-12-11] MEDS ORDERED: MAGNESIUM CITRATE 300 ML BTL PO ONE (06:00)
[2019-12-11 06:13] LABS: HEMATOCRIT 24.9 % (36.0-47.0); HEMOGLOBIN 7.2 g/dl (12.0-15.5); MEAN CORPUSCULAR HEMOGLOBIN 23.8 pg (27.0-33.0); MEAN CORPUSCULAR HGB CONC 28.9 g/dl (32.0-36.5); MEAN CORPUSCULAR VOLUME 82.5 fl (80.0-96.0); PLATELET COUNT, AUTOMATED 255 10^3/uL (150-450); RED BLOOD COUNT 3.02 10^6/uL (4.00-5.40); WHITE BLOOD COUNT 7.1 10^3/uL (4.0-10.0)
[2019-12-11 06:26] LABS: CALCIUM LEVEL 8.2 MG/DL (8.8-10.2); CREATININE FOR GFR 1.27 MG/DL (0.55-1.30); GLOMERULAR FILTRATION RATE 43.6 (>39); POTASSIUM SERUM 3.2 MEQ/L (3.5-5.1)
[2019-12-11 06:34] LABS: INR 1.64; PROTHROMBIN TIME 19.2 SECONDS (11.8-14.0)
[2019-12-11] MEDS ORDERED: LIDOCAINE 2% 100MG/5ML SDV (FOR ANES.) As Ordered ONE (07:50)
[2019-12-11] MEDS ORDERED: propofoL 200 MG/20 ML VIAL As Ordered ONE (07:50)
[2019-12-11] MEDS: GABAPENTIN 100 MG CAP PO SCH ×2 (08:42→20:06)
[2019-12-11] MEDS: HumaLOG INSULIN (NovoLOG) PER UNIT SC SCH ×4 (08:42→21:00)
[2019-12-11] MEDS: ATORVASTATIN 20 MG TAB PO SCH (08:42)
[2019-12-11] MEDS: FUROSEMIDE 40MG/4ML VIAL (J1940) IV SCH ×2 (08:42→17:25)
[2019-12-11] MEDS: PANTOPRAZOLE 40MG TAB (PROTONIX) PO SCH (08:42)
[2019-12-11] MEDS: METOPROLOL TART 25 MG TABLET PO SCH ×2 (08:43→20:06)
[2019-12-11] MEDS: DIGOXIN 0.125 MG TAB PO SCH (08:43)
--- NOTE | 2019-12-11 10:50 | IPNPDOC ---
Text Note Date of Service The patient was seen on 12/11/19. NOTE Patient was seen and examined. No overnight events. Has been up the whole night coz of bowel prep. Scheduled for colonoscopy and EGD today PHYSICAL EXAMINATION: Head is atraumatic, normocephalic. Neck is supple with no jugular venous distention (JVD). Lungs clear to auscultation except for mild bibasilar decreased breath sounds. Heart. S1, S2 audible. No murmurs appreciated. Abdomen is soft. Positive bowel sounds. Extremities. +2 pedal edema. Skin is intact. Neurologic examination, the patient is awake, alert and oriented times three. Labs reviewed Radiology reviewed Assessment and plan 1. Progressive shortness of breath. Improved. Could be multifactorial. The patient has symptomatic anemia with hemoglobin of 6.6 and she is status post 1 unit of PRBC.. The patient has a PA pressures of 50, with moderate pulmonary hypertension and the patient also has moderate tricuspid regurgitation, and history of systolic/diastolic heart failure. The patient takes torsemide at home and currently the patient We'll treat the individual cause. 2. Symptomatic anemia. The patient is status post 1 unit of PRBC and hemoglobin is stable for now. The patient has had a history of colon cancer, status post colectomy and currently the patient has been on oral anticoagulant as of the A. fib history. Stool for local blood was positive in the ER and for that reason, her oral anti-cognition has been discontinued. Will trend hemoglobin every 12 hours. surgery consult for possible colonoscopy already done and they're planning to do an endoscopic as well as coloscopy today. The patient has not had a follow-up colonoscopy after the surgery. 3. Moderate pulmonary hypertension. Given patient's lower extremity edema, history as well as moderate effusion with shortness of breath. Patient will be continued on diuretics with 40 twice a day IV of Lasix. Input output monitoring. We will continue to monitor the lites as well. Replace K and Mg. i/o is 2.5 l negative 4. Chronic diarrhea. The patient has a history of diarrhea likely exacerbated by surgical resection of her colon cancer. She will continue to use Imodium as needed. 5. Stage III adenocarcinoma of the colon, diagnosed September, : She received a truncated course of FOLFOX chemotherapy. The patient is approximately 2 years out from her diagnosis of colon cancer. She was due to receive a colonoscopy but that was rescheduled due to the COVID19 pandemic. Patient has been advised by oncology for the first 5 years after diagnosis and treatment, the NCCN guidelines recommend CEA and CT chest/abdomen/pelvis every 6-12 months. Given the patient's history of retroperitoneal lymphadenopathy, oncology wanted torepeat CT abdomen/pelvis with oral contrast in [address] chest without contrast was within normal limits in April,. 6. Lower extremity edema. Again, multifactorial This may be secondary to the patient's congestive heart failure, pulmonary hypertension. . We'll repeat a 2-D echo 7. Hypothyroidism. TSH. 9. As she is 74-year-old female with history of A. fib. We will continue the same dose of Synthroid. Disposition unknown at this time VS,Fishbone, I+O VS, Fishbone, I+O Laboratory Tests 12/11/19 05:51 Vital Signs Date Time Temp Pulse Resp B/P (MAP) Pulse Ox O2 Delivery O2 Flow Rate FiO2 12/11/19 08:43 87 122/66 12/11/19 06:00 98.7 16 92 Room Air I&O- Last 24 Hours up to 6 AM 12/11/19 06:00 Intake Total 600 ml Output Total 2550 ml Balance -1950 ml TERRI WADE MD Dec 11, 2019 10:49
[2019-12-11] MEDS ORDERED: MAGNESIUM OXIDE 400 MG TAB (MAG-OX) PO ONE (11:00)
[2019-12-11] MEDS ORDERED: POTASSIUM CHLORIDE 10 MEQ SR TABLET PO ONE (11:00)
--- NOTE | 2019-12-11 12:35 | IPNPDOC ---
Text Note Date of Service The patient was seen on 12/11/19. NOTE Patient admitted for symptomatic anemia s/p transfusion 1 u prbc. She has a pr ior history of ascending colon cancer s/p right colectomy. VS stable I/O Examination: seems still slightly short of breath when conversing; use of extaneous muscles for respiration lungs clear, no wheezing round, mildly distended abdomen, nontender to palpation Impression and plan history of colon cancer symptomatic anemia Patient is for upper endoscopy and colonoscopy today. VS,Fishbone, I+O VS, Fishbone, I+O Laboratory Tests 12/11/19 05:51 Vital Signs Date Time Temp Pulse Resp B/P (MAP) Pulse Ox O2 Delivery O2 Flow Rate FiO2 12/11/19 08:43 87 122/66 12/11/19 06:00 98.7 16 92 Room Air I&O- Last 24 Hours up to 6 AM 12/11/19 06:00 Intake Total 600 ml Output Total 2550 ml Balance -1950 ml MIGUEL ANGEL WALL MD Dec 11, 2019 11:38
--- NOTE | 2019-12-11 13:03 | ROOR ---
Patient Name: Florencia Cobian Procedure Date: 12/11/2019 12:34 PM Date of : 1945 Age: 74 Room: [facility] Gender: Female Note Status: Finalized Procedure: Upper GI endoscopy Indications: Iron deficiency anemia Providers: Byron Moralez MD Referring MD: JANIS Larry Requesting Provider: Medicines: Monitored Anesthesia Care Complications: No immediate complications. Procedure: Pre-Anesthesia Assessment: - Prior to the procedure, a History and Physical was performed, and patient medications and allergies were reviewed. The patient is competent. The risks and benefits of the procedure and the sedation options and risks were discussed with the patient. All questions were answered and informed consent was obtained. Patient identification and proposed procedure were verified by the physician, the nurse and the anesthesiologist in the endoscopy suite. Mental Status Examination: alert and oriented. Airway Examination: normal oropharyngeal airway and neck mobility. Respiratory Examination: clear to auscultation. CV Examination: normal. Prophylactic Antibiotics: The patient does not require prophylactic antibiotics. Prior Anticoagulants: The patient has taken Eliquis (apixaban), last dose was 2 days prior to procedure. ASA Grade Assessment: III - A patient with severe systemic disease. After reviewing the risks and benefits, the patient was deemed in satisfactory condition to undergo the procedure. The anesthesia plan was to use monitored anesthesia care (MAC). Immediately prior to administration of medications, the patient was re-assessed for adequacy to receive sedatives. The heart rate, respiratory rate, oxygen saturations, blood pressure, adequacy of pulmonary ventilation, and response to care were monitored throughout the procedure. The physical status of the patient was re-assessed after the procedure. The Endoscope was introduced through the mouth, and advanced to the second part of duodenum. The upper GI endoscopy was technically difficult and complex due to the patient's respiratory instability (hypoxia). Findings: No gross lesions were noted in the entire esophagus. A medium-sized hiatal hernia was present. Estimated blood loss: none. Striped mildly erythematous mucosa without bleeding was found in the gastric antrum. The first portion of the duodenum and second portion of the duodenum were normal. Impression: - No gross lesions in esophagus. - Medium-sized hiatal hernia. - Erythematous mucosa in the antrum. - Normal first portion of the duodenum and second portion of the duodenum. - No specimens collected. Recommendation: - Procedure truncated due to patient's hypoxia Byron Moralez MD Byron Moralez MD 12/11/2019 1:02:41 PM Electronically signed by Byron Moralez MD Number of Addenda: 0 Note Initiated On: 12/11/2019 12:34 PM Estimated Blood Loss: Estimated blood loss: none.
[2019-12-11 15:55] LABS: HEMOGLOBIN 7.4 g/dl (12.0-15.5); MEAN CORPUSCULAR HEMOGLOBIN 23.9 pg (27.0-33.0); MEAN CORPUSCULAR HGB CONC 28.5 g/dl (32.0-36.5); MEAN CORPUSCULAR VOLUME 84.1 fl (80.0-96.0); PLATELET COUNT, AUTOMATED 272 10^3/uL (150-450); RED BLOOD COUNT 3.09 10^6/uL (4.00-5.40); WHITE BLOOD COUNT 5.7 10^3/uL (4.0-10.0)
[2019-12-11] MEDS: rOPINIRole 0.25 MG TAB(REQUIP) PO SCH (20:06)
[2019-12-12] VITALS (9 sets, daily range): BP systolic 109–132; BP diastolic 70–82; O2SAT 90–94
[2019-12-12] MEDS: LEVOTHYROXINE 125MCG TABLET (0.125MG) PO SCH (05:41)
[2019-12-12 06:11] LABS: HEMATOCRIT 30.2 % (36.0-47.0); HEMOGLOBIN 9.1 g/dl (12.0-15.5); MEAN CORPUSCULAR HEMOGLOBIN 25.2 pg (27.0-33.0); MEAN CORPUSCULAR HGB CONC 30.1 g/dl (32.0-36.5); MEAN CORPUSCULAR VOLUME 83.7 fl (80.0-96.0); PLATELET COUNT, AUTOMATED 274 10^3/uL (150-450); RED BLOOD COUNT 3.61 10^6/uL (4.00-5.40); WHITE BLOOD COUNT 5.4 10^3/uL (4.0-10.0)
[2019-12-12 06:20] LABS: INR 1.53; PROTHROMBIN TIME 18.1 SECONDS (11.8-14.0)
[2019-12-12 06:24] LABS: CALCIUM LEVEL 8.4 MG/DL (8.8-10.2); CREATININE FOR GFR 1.1 MG/DL (0.55-1.30); GLOMERULAR FILTRATION RATE 51.4 (>39); POTASSIUM SERUM 3.2 MEQ/L (3.5-5.1)
[2019-12-12] MEDS: FUROSEMIDE 40MG/4ML VIAL (J1940) IV SCH ×2 (08:07→17:35)
[2019-12-12] MEDS: HumaLOG INSULIN (NovoLOG) PER UNIT SC SCH ×4 (08:07→21:00)
[2019-12-12] MEDS: POTASSIUM CHLORIDE 10 MEQ SR TABLET PO SCH ×2 (09:43→12:30)
[2019-12-12] MEDS: METOPROLOL TART 25 MG TABLET PO SCH ×2 (10:19→21:12)
[2019-12-12] MEDS: DIGOXIN 0.125 MG TAB PO SCH (10:20)
[2019-12-12] MEDS: ATORVASTATIN 20 MG TAB PO SCH (10:20)
[2019-12-12] MEDS: PANTOPRAZOLE 40MG TAB (PROTONIX) PO SCH (10:21)
[2019-12-12] MEDS: GABAPENTIN 100 MG CAP PO SCH ×2 (10:21→21:11)
[2019-12-12] MEDS: NYSTATIN 100,000 UNITS/GM TOPICAL PWD 15 GM TOP SCH ×2 (12:30→21:14)
--- NOTE | 2019-12-12 12:47 | IPNPDOC ---
Text Note Date of Service The patient was seen on 12/12/19. NOTE Patient was seen and examined. . She is status post EGD yesterday. Refused col onoscopy as she wants to get it done by her primary associate quality engineer, which she is scheduled for the next week PHYSICAL EXAMINATION: Head is atraumatic, normocephalic. Neck is supple with no jugular venous distention (JVD). Lungs clear to auscultation except for mild bibasilar decreased breath sounds. Heart. S1, S2 audible. No murmurs appreciated. Abdomen is soft. Positive bowel sounds. Extremities. +2 pedal edema. Skin is intact. Neurologic examination, the patient is awake, alert and oriented times three. Labs reviewed Radiology reviewed Assessment and plan 1. Progressive shortness of breath. Improved. Could be multifactorial. The patient has symptomatic anemia with hemoglobin of 6.6 and she is status post 1 unit of PRBC.. The patient has a PA pressures of 50, with moderate pulmonary hypertension and the patient also has moderate tricuspid regurgitation, and history of systolic/diastolic heart failure. The patient takes torsemide at home and currently the patient We'll treat the individual cause. 2. Symptomatic anemia. Improving. The patient is status post 2 unit of PRBC and hemoglobin is stable for now. The patient has had a history of colon cancer, status post colectomy and currently the patient has been on oral anticoagulant as of the A. fib history. Stool for local blood was positive in the ER and for that reason, her oral anti-cognition has been discontinued. Surgery was consulted for possible endoscopy and colonoscopy . Endoscopy was done to rule out any Ulcer. As She Has a History of Hiatal Hernia, but the Endoscopy Did Not Show Anything. Yesterday the Patient Desaturated While They Were Attempting Colonoscopy, so the Procedure Was Aborted. She Was Supposed to Get a Colonoscopy Today, but She Refused and Wants to Get It Done by the Primary Radiology Services Manager. We Will Continue to Follow the Hemoglobin and If the Hemoglobin Is Stable. She Probably Might Be Able to Be Discharged. 3. Moderate pulmonary hypertension. Repeat echo. Also showing moderate pulmonary hypertension. Given patient's lower extremity edema, history as well as moderate effusion with shortness of breath. Patient will be continued on diuretics with 40 twice a day IV of Lasix. Will switch to oral Lasix soon Input output monitoring. We will continue to monitor the lites as well. Replace K and Mg. . She is in a negative balance of more than 3 L. 4. Chronic diarrhea. The patient has a history of diarrhea likely exacerbated by surgical resection of her colon cancer. She will continue to use Imodium as needed. 5. Stage III adenocarcinoma of the colon, diagnosed September, : She received a truncated course of FOLFOX chemotherapy. The patient is approximately 2 years out from her diagnosis of colon cancer. She was due to receive a colonoscopy but that was rescheduled due to the COVID19 pandemic. Patient has been advised by oncology for the first 5 years after diagnosis and treatment, the NCCN guidelines recommend CEA and CT chest/abdomen/pelvis every 6-12 months. Given the patient's history of retroperitoneal lymphadenopathy, oncology wanted torepeat CT abdomen/pelvis with oral contrast in [address] chest without contrast was within normal limits in April,. 6. Lower extremity edema. Again, multifactorial This may be secondary to the patient's congestive heart failure, pulmonary hypertension. . We'll repeat a 2-D echo 7. Hypothyroidism. TSH. 9. As she is 74-year-old female with history of A. fib. We will continue the same dose of Synthroid. Likely home tomorrow if the hemoglobin continues to be stable. VS,Fishbone, I+O VS, Fishbone, I+O Laboratory Tests 12/11/19 15:13 12/12/19 05:35 Vital Signs Date Time Temp Pulse Resp B/P (MAP) Pulse Ox O2 Delivery O2 Flow Rate FiO2 12/12/19 10:20 92 12/12/19 10:19 132/78 12/12/19 09:05 97.7 19 93 Room Air 12/11/19 13:21 4 I&O- Last 24 Hours up to 6 AM 12/12/19 06:00 Intake Total 1875 ml Output Total 1800 ml Balance 75 ml TERRI WADE MD Dec 12, 2019 12:47
[2019-12-12] MEDS: rOPINIRole 0.25 MG TAB(REQUIP) PO SCH (21:12)
[2019-12-13] MEDS: LEVOTHYROXINE 125MCG TABLET (0.125MG) PO SCH (05:43)
[2019-12-13 06:00] VITALS: BP 112/52
[2019-12-13 06:55] LABS: HEMATOCRIT 29.6 % (36.0-47.0); MEAN CORPUSCULAR HEMOGLOBIN 25.4 pg (27.0-33.0); MEAN CORPUSCULAR HGB CONC 30.4 g/dl (32.0-36.5); MEAN CORPUSCULAR VOLUME 83.4 fl (80.0-96.0); PLATELET COUNT, AUTOMATED 275 10^3/uL (150-450); RED BLOOD COUNT 3.55 10^6/uL (4.00-5.40); WHITE BLOOD COUNT 6.3 10^3/uL (4.0-10.0)
[2019-12-13 07:11] LABS: INR 1.5; PROTHROMBIN TIME 17.8 SECONDS (11.8-14.0)
[2019-12-13 07:13] LABS: CALCIUM LEVEL 8.7 MG/DL (8.8-10.2); CREATININE FOR GFR 1.19 MG/DL (0.55-1.30); GLOMERULAR FILTRATION RATE 46.9 (>39); POTASSIUM SERUM 3.5 MEQ/L (3.5-5.1)
[2019-12-13] MEDS ORDERED: FUROSEMIDE 40 MG TAB PO SCH (09:00)
[2019-12-13] MEDS: HumaLOG INSULIN (NovoLOG) PER UNIT SC SCH ×2 (09:15→12:57)
[2019-12-13] MEDS: ATORVASTATIN 20 MG TAB PO SCH (09:16)
[2019-12-13] MEDS: PANTOPRAZOLE 40MG TAB (PROTONIX) PO SCH (09:16)
[2019-12-13] MEDS: GABAPENTIN 100 MG CAP PO SCH (09:16)
[2019-12-13] MEDS: DIGOXIN 0.125 MG TAB PO SCH (09:17)
[2019-12-13 09:18] VITALS: BP 111/76
[2019-12-13] MEDS: NYSTATIN 100,000 UNITS/GM TOPICAL PWD 15 GM TOP SCH (09:18)
[2019-12-13] MEDS: METOPROLOL TART 25 MG TABLET PO SCH (09:18)
[2019-12-13] MEDS ORDERED: METO25TA PO (11:56)
--- NOTE | 2019-12-13 12:20 | DS.PDOC ---
Discharge Summary General Date of Admission Dec 09, 2019 at 13:46 Date of Discharge 12/13/19 Discharge Summary Chief complaints: Progressive shortness of breath Final diagnosis Anemia, symptomatic GI bleed Pulmonary hypertension History of present illness and Hospital course 74-year-old female with a past medical history of chronic heart failure, ejection fraction of 50%, non oxygen dependent chronic obstructive pulmonary disease (COPD), hyperlipidemia, diabetes, hypothyroidism, atrial fibrillation on Eliquis, hypertension, who presents to the emergency room with shortness of breath for the last few months, she has had telemetry visits over the last few months with her lead instructor/flight attendant and oncologist. She also complained to them that she continued to have increased shortness of breath. . She said that she is compliant with her medications and diet. She has had a recent echo in 2019. It was found that she has mild to moderate tricuspid regurgitation, she has pulmonary artery pressures of 50, so she has moderate pulmonary hypertension, which was also seen on the repeat echo. She also has mild diastolic heart failure. She complains of on and off increased swelling in her lower extremities as well. Her exercise tolerance had decreased. This time she comes to the ER and was found to be anemic with a hemoglobin of less than 7, which could have explained her anemia. She also has moderate right-sided pleural effusion. The patient was admitted for shortness of breath, likely multifactorial with symptomatic anemia, moderate pulmonary hypertension and heart failure. She denied any blood in the stool. But stool guaiac in the ER has been positive. Her shortness of breath. Improved. Could be multifactorial. The patient has symptomatic anemia with hemoglobin of 6.6 and she is status post 2 unit of PRBC . The patient has a PA pressures of 50, with moderate pulmonary hypertension and the patient also has moderate tricuspid regurgitation, and history of systolic/diastolic heart failure. The patient takes torsemide at home and that'll be continued on metolazone has been added. For her Symptomatic anemia which is stable now. The patient is status post 2 unit of PRBC and hemoglobin is stable for now. The patient has had a history of colon cancer, status post colectomy and currently the patient has been on oral anticoagulant as of the A. fib history. Stool for local blood was positive in the ER and for that reason, her oral anti-cognition has been discontinued. I had a detailed discussion with her regarding this. On discharge her Eliquis will be discontinued and she will require to get a colonoscopy first and then the decision regarding her Eliquis can be made. I have advised her to talk to her PCP and lead instructor/flight attendant as well as GI specialist last to make a decision regarding her Eliquis once the colonoscopy is done. Surgery was consulted for possible endoscopy and colonoscopy . Endoscopy was done to rule out any Ulcer. As She Has a History of Hiatal Hernia, but the Endoscopy Did Not Show Anything. the Patient Desaturated While They Were Attempting Colonoscopy, so the Procedure Was Aborted. Repeat colonoscopy was offered but She Refused and Wants to Get It Done by the Primary Product Examiner. her hemoglobin has been stable over the last 48 hours. For her Moderate pulmonary hypertension. Repeat echo. Also showing moderate pulmonary hypertension. Given patient's lower extremity edema, history as well as moderate effusion with shortness of breath. Patient will be continued on diuretics with 20 twice a day of torsemide and metolazone 2.5 mg morning dose has been admitted with instructions to take it before torsemide 30 minutes. In total, she was in a negative balance of more than 3 L in the hospital. For her Stage III adenocarcinoma of the colon, diagnosed September, : She received a truncated course of FOLFOX chemotherapy. The patient is approximately 2 years out from her diagnosis of colon cancer. She was due to receive a colonoscopy but that was rescheduled due to the COVID19 pandemic. Patient has been advised by oncology for the first 5 years after diagnosis and treatment, the NCCN guidelines recommend CEA and CT chest/abdomen/pelvis every 6-12 months. Given the patient's history of retroperitoneal lymphadenopathy, oncology wanted torepeat CT abdomen/pelvis with oral contrast in [address] chest without contrast was within normal limits in April,. Advised to follow with hematology oncology as an outpatient . She also has a history of Hypothyroidism. TSH. 9. As she is 74-year-old female with history of A. fib. We will continue the same dose of Synthroid.. She is medically optimized as makes will benefit from this inpatient stay has been opting. Physical examination Head is atraumatic, normocephalic. Neck is supple with no jugular venous distention (JVD). Lungs clear to auscultation except for mild bibasilar decreased breath sounds. Heart. S1, S2 audible. No murmurs appreciated. Abdomen is soft. Positive bowel sounds. Extremities. +2 pedal edema. Skin is intact. Neurologic examination, the patient is awake, alert and oriented times three. Medications. As per discharge reconciliation medication list Activity as tolerated Diet. 2 g sodium diet Follow-up appointments. PCP in 1 week, GI in 1 week, Condition on discharge. Patient is medically optimized for discharge Discharge disposition: Home Total time spent on this discharge including coordination of care, review of chart documentation and actual contact is around 35 minutes Vital Signs/I&Os Vital Signs Date Time Temp Pulse Resp B/P (MAP) Pulse Ox O2 Delivery O2 Flow Rate FiO2 12/13/19 09:18 90 111/76 12/13/19 06:00 98.1 19 93 NIPPV (BIPAP/CPAP) 12/11/19 13:21 4 I&O- Last 24 Hours up to 6 AM 12/13/19 06:00 Intake Total 1210 ml Output Total 1700 ml Balance -490 ml Laboratory Data Labs 24H Laboratory Tests 2 12/12/19 16:29: Bedside Glucose (Misc Panel) 219H 12/12/19 20:49: Bedside Glucose (Misc Panel) 179H 12/13/19 06:17: Nucleated Red Blood Cells % (auto) 0.0, Prothrombin Time 17.8H, Prothromb Time International Ratio 1.50, Anion Gap 8, Glomerular Filtration Rate 46.9, Calcium Level 8.7L CBC/BMP Laboratory Tests 12/13/19 06:17 FSBS Laboratory Tests Test 12/12/19 16:29 12/12/19 20:49 Range/Units Bedside Glucose (Misc Panel) 219 179 83-110 MG/DL Microbiology Microbiology 12/09/19 Blood Culture - Preliminary, Resulted No Growth after 72 hours. All specime... 12/09/19 Blood Culture - Preliminary, Resulted No Growth after 72 hours. All specime... Discharge Medications Scheduled Atorvastatin Calcium (Atorvastatin Calcium) 40 Mg Tablet, 40 MG PO DAILY, (Reported) Dapagliflozin Propanediol (Farxiga) 10 Mg Tablet, 10 MG PO DAILY, (Reported) Digoxin (Digoxin) 125 Mcg Tab, 125 MCG PO DAILY, (Reported) Gabapentin (Neurontin) 100 Mg Cap, 100 MG PO BID, (Reported) Glipizide (Glipizide ER) 5 Mg Tab, 5 MG PO DAILY, (Reported) Insulin Degludec (Tresiba Flextouch U-100) 100 Unit/1 Ml Insuln.pen, 26 UNITS SQ DAILY, (Reported) Levothyroxine Sodium (Levoxyl) 175 Mcg Tablet, 175 MCG PO DAILY, (Reported) Melatonin (Melatonin) 10 Mg Capsule, 20 MG PO QHS, (Reported) Metformin HCl (Metformin HCl ER) 500 Mg Tab, 1,000 MG PO BID, (Reported) Metolazone (Metolazone) 2.5 Mg Tablet, 2.5 MG PO 3XW, (Reported) MON, MON, MON Metolazone (Metolazone) 2.5 Mg Tablet, 2.5 MG PO DAILY Metoprolol Tartrate (Metoprolol Tartrate) 25 Mg Tab, 25 MG PO BID, (Reported) Pantoprazole Sodium (Pantoprazole Sodium) 40 Mg Tab, 40 MG PO DAILY, (Reported) Ropinirole HCl (Ropinirole HCl) 0.5 Mg Tab, 0.5 MG PO QHS, (Reported) Torsemide (Torsemide) 20 Mg Tab, 40 MG PO DAILY, (Reported) Scheduled PRN Albuterol Sulf (Albuterol Sulfate) 2.5 Mg/3 Ml Nebu, 2.5 MG INH QID PRN for SHORTNESS OF BREATH, (Reported) Albuterol Sulfate (Ventolin Hfa) 108 Mcg/Act Aer, 2 PUFFS INH QID PRN for SHORTNESS OF BREATH, (Reported) Loperamide HCl (Anti-Diarrheal) 2 Mg Tablet, 2 MG PO Q6H PRN for DIARRHEA, (Reported) Allergies Coded Allergies: No Known Allergies (Verified , 11/11/16) TERRI WADE MD Dec 13, 2019 12:20
--- NOTE | 2019-12-13 18:21 | IPN ---
DATE: 12/13/2019 HISTORY: The patient was admitted on 12/09/2019 and seen by my partner, Dr. Moralez, in consultation on 12/10/2019. She had presented with anemia and has received a transfusion of packed red blood cells to a total of 3 units. She had an upper endoscopy performed on 12/11/2019, which showed no obvious source for bleeding. Apparently a planned colonoscopy was not performed because of some oxygen desaturations. She opted out of a repeat attempt at colonoscopy yesterday. She reports she is feeling better this morning and is anticipating discharge. VITAL SIGNS: Vital signs today show that she has been afebrile. Her pulse is in the 80s generally with a good blood pressure. W Intake and output show recorded numbers of 1600 in yesterday and 1600 out yesterday. PHYSICAL EXAMINATION: She is sitting up on the chair at the bedside looking comfortable. LABORATORY DATA: Laboratories this morning show a white count of 6, hemoglobin 9, hematocrit of 30 and platelet count of 275,000. Chemistry profile shows normal electrolytes with BUN of 27, creatinine 1.2 and a glucose of 169. IMPRESSION: The patient is feeling improved after transfusion. The source of any supposed blood loss has not been identified. RECOMMENDATIONS: The patient anticipates discharge today, and this seems reasonable as long as there is no sign of active bleeding. She should consider having a colonoscopy done, although given her history of colon resection just 2 years ago, it is likely not going to identify a source for bleeding. But still this would be appropriate to complete her intestinal evaluation. This can be done on an outpatient basis. She advised me that she has some trepidation about this and wants to speak with her pulmonary physician before considering a colonoscopy. SUSAN
== END 2019-12-13 13:04 | disposition home or self-care (01) | DRG 812 ==
LOC: M ED 11:07 → M ED INP 13:46 → ENRESERV 14:02 → M MSPAV 14:38
PROVIDERS: ADMIT Internal Medicine; ATTEND Internal Medicine
PROC: 30233N1 Transfusion of Nonautologous Red Blood Cells into Peripheral Vein, Percutaneous Approach (ICD-10-PCS; 2019-12-11)
PROC: 0DJ08ZZ Inspection of Upper Intestinal Tract, Via Natural or Artificial Opening Endoscopic (ICD-10-PCS; principal; 2019-12-11 12:00)
DX: D64.9 Anemia, unspecified (principal); I50.42 Chronic combined systolic (congestive) and diastolic (congestive) heart failure; K92.2 Gastrointestinal hemorrhage, unspecified; J44.9 Chronic obstructive pulmonary disease, unspecified; E78.5 Hyperlipidemia, unspecified; I11.0 Hypertensive heart disease with heart failure; I48.91 Unspecified atrial fibrillation; G47.33 Obstructive sleep apnea (adult) (pediatric); K52.9 Noninfective gastroenteritis and colitis, unspecified; E03.9 Hypothyroidism, unspecified; I27.20 Pulmonary hypertension, unspecified; K44.9 Diaphragmatic hernia without obstruction or gangrene; M10.9 Gout, unspecified; E11.40 Type 2 diabetes mellitus with diabetic neuropathy, unspecified; G47.30 Sleep apnea, unspecified; Z90.49 Acquired absence of other specified parts of digestive tract; Z87.891 Personal history of nicotine dependence; Z79.4 Long term (current) use of insulin; Z79.899 Other long term (current) drug therapy; Z85.038 Personal history of other malignant neoplasm of large intestine; Z79.01 Long term (current) use of anticoagulants; Z98.41 Cataract extraction status, right eye; Z11.59 Encounter for screening for other viral diseases; Z53.09 Procedure and treatment not carried out because of other contraindication

== ENCOUNTER 2020-02-17 13:38 | Emergency (ER) | payer OTHER ==
[~2020-02-17] VITALS: Ht 157.5 cm; Wt 98.6 kg
[~2020-02-17 13:38] MED LIST changes: +ANTI2TAB16 PO; +CVS10CAP7 PO; +FARX1TAB3 PO; +LEVO175T19 PO; +METO25TA PO; +PANT40TA29 PO; -PANT40TA3 PO; +TRES1INJ2 SQ
[2020-02-17] MEDS ORDERED: ELIQ5TAB (13:57)
[2020-02-17] MEDS ORDERED: POTA1TAB23 (13:57)
--- NOTE | 2020-02-17 14:55 | REPVR ---
PROCEDURE INFORMATION: Exam: XR Right Knee Exam date and time: 02/17/2020 2:41 PM Age: 74 years old Clinical indication: Pain; Knee; Right TECHNIQUE: Imaging protocol: XR Right knee. Views: 4 or more views. COMPARISON: CR Femur 04/05/2013 3:41 PM FINDINGS: Bones/joints: Mild patellofemoral compartment joint space narrowing. Severe medial compartment joint space narrowing. Medial compartment subchondral sclerosis. Tricompartmental osteophytosis. Well corticated small ossific density projecting lateral to the patella possibly representing a knee joint loose body. Superior patellar enthesophyte. No acute fracture. No dislocation. Soft tissues: Unremarkable as visualized. Vasculature: Vascular calcifications. IMPRESSION: Tricompartmental knee osteoarthritis, most pronounced at the medial compartment. Electronically signed by: Wilbur Anderson On 02/17/2020 14:55:26 PM
--- NOTE | 2020-02-17 15:51 | REPVR ---
PROCEDURE INFORMATION: Exam: US Duplex Right Lower Extremity Veins, Limited Exam date and time: 02/17/2020 3:40 PM Age: 74 years old Clinical indication: Pain; Leg, lower; Right; Additional info: Right lower extremity pain, rule out DVT TECHNIQUE: Imaging protocol: Real-time Duplex ultrasound of the Right Lower Extremity with 2-D bowman scale, color Doppler flow and spectral waveform analysis with image documentation. Limited exam was focused on the right lower extremity veins. COMPARISON: US Duplex, Ext,LOWER veins,unilat 04/05/2013 3:26 PM FINDINGS: Right deep veins: The common femoral, femoral, and popliteal veins are patent without thrombus. Normal compressibility and/or augmentation response. Soft tissues: Unremarkable. IMPRESSION: No evidence of deep vein thrombosis in the visualized lower extremity. Electronically signed by: Wilbur Anderson On 02/17/2020 15:51:09 PM
[2020-02-17 16:38] VITALS: BP 146/78
== END 2020-02-17 17:12 | disposition home or self-care (01) ==
LOC: M ED 13:38 → EDBD 13:38 → M ED 17:12
DX: M17.11 Unilateral primary osteoarthritis, right knee (principal); R26.2 Difficulty in walking, not elsewhere classified; M79.661 Pain in right lower leg; C18.9 Malignant neoplasm of colon, unspecified; I11.0 Hypertensive heart disease with heart failure; E11.40 Type 2 diabetes mellitus with diabetic neuropathy, unspecified; E78.5 Hyperlipidemia, unspecified; K57.90 Diverticulosis of intestine, part unspecified, without perforation or abscess without bleeding; E03.9 Hypothyroidism, unspecified; J44.9 Chronic obstructive pulmonary disease, unspecified; G47.33 Obstructive sleep apnea (adult) (pediatric); K21.9 Gastro-esophageal reflux disease without esophagitis; K85.90 Acute pancreatitis without necrosis or infection, unspecified; Z87.891 Personal history of nicotine dependence; Z79.51 Long term (current) use of inhaled steroids; Z79.84 Long term (current) use of oral hypoglycemic drugs; Z79.899 Other long term (current) drug therapy

== ENCOUNTER → 2020-04-03 | Outpatient (CLI) | payer OTHER ==
[~2020-04-03] MED LIST changes: +ELIQ5TAB; +GASTROGRAFIN SOLUTION 30ML (Q9963) As Ordered ONE; +ISOVUE-370 76% 100ML VIAL As Ordered ONE; +POTA1TAB23
--- NOTE | 2020-04-03 13:49 | REP ---
INDICATION: STAGE 3 COLON CA. COMPARISON: None TECHNIQUE: Axial contrast-enhanced images from the lung bases to the pubic symphysis using 100 cc Isovue 370 intravenous contrast material. Delayed images of the abdomen obtained along with coronal and sagittal reformations. This CT examination was performed using the following dose reduction techniques: Automated exposure control, adjustment of mA and/or kv according to the patient's size, and the use of iterative reconstruction technique. FINDINGS: Liver demonstrates stable hepatomegaly without focal hepatic lesion identified. Spleen is upper limits of normal in size without focal splenic lesion. Pancreas, bilateral adrenal glands, and kidneys are essentially normal. The gallbladder appears moderately distended without pericholecystic fluid or inflammatory changes. The enteric system demonstrates moderate hiatal hernia. No bowel obstruction or acute inflammatory process. Colonic and sigmoid diverticulosis noted without acute diverticulitis findings suggesting prior right hemicolectomy noted. Pelvis demonstrates normal bladder and age-appropriate uterus/adnexa Few mildly prominent periaortic retroperitoneal lymph nodes are again noted and similar to prior examination. No ascites. No free air. Abdominal aorta demonstrates atherosclerotic changes without aneurysm or dissection. Musculoskeletal structures demonstrate degenerative changes without acute osseous abnormality. Lung bases demonstrate small pleural effusions and minimal atelectasis (right greater than left). IMPRESSION: 1. Stable hepatomegaly without focal hepatic lesion identified (the previously noted hepatic nodules are not identified on current examination which may be secondary to variations in technique and enhancement). 2. Mildly dilated gallbladder with possible small stones/gravel, but no CT evidence for acute cholecystitis. 3. Prior right hemicolectomy. Sigmoid diverticulosis. 4. Few periaortic retroperitoneal lymph nodes appear mildly prominent but stable compared to prior examination. Given the patient's history, pathologic lymph nodes cannot be excluded. 5. Small pleural effusions and bibasilar atelectasis (right greater than left). <Electronically signed by Trevon Ohara > 04/03/20 [id number]
== END ==
LOC: M RAD 10:59
PROVIDERS: ATTEND Specialist
DX: C18.9 Malignant neoplasm of colon, unspecified (principal); R16.2 Hepatomegaly with splenomegaly, not elsewhere classified; K57.30 Diverticulosis of large intestine without perforation or abscess without bleeding; K82.8 Other specified diseases of gallbladder
CPT/HCPCS: 74177; Q9963; Q9967

== ENCOUNTER → 2020-12-04 | Outpatient (CLI) | payer MEDICARE ==
[~2020-12-04] MED LIST changes: -GASTROGRAFIN SOLUTION 30ML (Q9963) As Ordered ONE; -ISOVUE-370 76% 100ML VIAL As Ordered ONE; -LISI-542 PO; +LISI-898 PO
--- NOTE | 2020-12-04 12:15 | REP ---
INDICATION: SWELLING, CALF PAIN, R/O DVT. COMPARISON: None. TECHNIQUE: Multiple ultrasonographic images of the deep venous structures of the right lower extremity were obtained from the inguinal ligament to the ankle. Venous compression techniques, color doppler imaging, and augmentation techniques were also obtained where appropriate. As per the ACR guidelines the anterior tibial vein can not be effectively evaluated. Only compression techniques in the calf on the peroneal and posterior tibial veins was attempted/performed. FINDINGS: There is no abnormal echogenic material seen within any of the visualized deep venous structures that would suggest acute thrombosis. Coaptation is unremarkable throughout. Doppler interrogation shows an expected response to respiratory variability and augmentation in the thigh. Compression techniques in the calf abnormality were unobtainable. The color flow images show what appears to be a normal vascular pattern throughout the thigh. IMPRESSION: There is no ultrasonographic evidence of deep venous thrombosis involving any of the visualized deep venous structures of the right lower extremity as described above. Due to technical parameters calf vein DVT can not be ruled out. <Electronically signed by Jorge Ivy > 12/04/20 [id number]
== END ==
LOC: M RAD 11:43
PROVIDERS: ATTEND Nurse Practitioner Family
DX: M79.604 Pain in right leg (principal)

== ENCOUNTER → 2021-01-14 | Outpatient (CLI) | payer MEDICARE ==
--- NOTE | 2021-01-14 17:15 | REP ---
INDICATION: CONTUSION OF RIGHT ANKLE, INITIAL ENCOUNTER. COMPARISON: None. TECHNIQUE: Four views FINDINGS: No acute fracture or destructive osseous lesion. The mortise is intact. There is a large plantar and a small retrocalcaneal heel spur. IMPRESSION: Chronic changes <Electronically signed by Jorge Ivy > 01/14/21 [id number]
== END ==
LOC: M RAD 16:44
PROVIDERS: ATTEND Nurse Practitioner Family
DX: S90.01XA Contusion of right ankle, initial encounter (principal); M77.31 Calcaneal spur, right foot

== ENCOUNTER → 2021-02-26 | Outpatient (CLI) | payer MEDICARE ==
[~2021-02-26] MED LIST changes: +ALLO100T PO; -ELIQ5TAB; +GASTROGRAFIN SOLUTION 30ML (Q9963) As Ordered ONE; +ISOVUE-370 76% 100ML VIAL As Ordered ONE; -POTA1TAB23; +POTA1TAB23 PO
--- NOTE | 2021-02-26 15:12 | REP ---
INDICATION: COLON CA. COMPARISON: Multiple the latest 04/03/2020 TECHNIQUE: Standard helical technique after the intravenous administration of 100 cc Isovue 370 and oral bowel preparatory contrast administration. FINDINGS: The small right pleural effusion seen previously has increased in size. There are no other significant lung base changes. The liver and spleen are essentially unchanged. Note is again made of hepatosplenomegaly and an abnormal left lobe the caudate ratio. The gallbladder, pancreas, adrenal glands, and kidneys are unchanged. The abdominal aorta and para-aortic regions are unchanged. Cysts small para-aortic lymph nodes are noted status quo. No vicente adenopathy has developed. There is no significant change in appearance of the bowel loops or the mesenteries. Since the last examination a grade 1 superior endplate compression deformity has developed involving L3, however, the age of this cannot be determined by this exam. IMPRESSION: 1. Increased but still small right pleural effusion. 2. Hepatosplenomegaly status quo. 3. Mildly enlarged gallbladder with possible tiny gravel-like choleliths status quo. 4. Stable nonenlarged para-aortic lymph nodes. 5. Newly developed but age undetermined L3 compression deformity as described above. 6. Other findings as described above. <Electronically signed by Jorge Ivy > 02/26/21 [id number]
== END ==
LOC: M RAD 11:38
PROVIDERS: ATTEND Specialist
DX: J90 Pleural effusion, not elsewhere classified (principal)
CPT/HCPCS: 74177; Q9963; Q9967

== ENCOUNTER 2021-10-22 23:54 | Emergency (ER) | payer MEDICARE, OTHER ==
[~2021-10-22] VITALS: Ht 157.5 cm; Wt 95.5 kg
[~2021-10-22 23:54] MED LIST changes: +CHOL4POW15 PO; -CHOL4POW4 PO; -GASTROGRAFIN SOLUTION 30ML (Q9963) As Ordered ONE; -ISOVUE-370 76% 100ML VIAL As Ordered ONE; -LISI-898 PO; +LISI5TAB11 PO
[2021-10-23] MEDS ORDERED: GABA-282 (00:17)
[2021-10-23 00:22] VITALS: BP 115/56
[2021-10-23 00:46] LABS: HEMATOCRIT 33.5 % (36.0-47.0); HEMOGLOBIN 11.3 g/dl (12.0-15.5); MEAN CORPUSCULAR HEMOGLOBIN 28.6 pg (27.0-33.0); MEAN CORPUSCULAR HGB CONC 33.7 g/dl (32.0-36.5); MEAN CORPUSCULAR VOLUME 84.8 fl (80.0-96.0); PLATELET COUNT, AUTOMATED 237 10^3/uL (150-450); RED BLOOD COUNT 3.95 10^6/uL (4.00-5.40); WHITE BLOOD COUNT 6.1 10^3/uL (4.0-10.0)
[2021-10-23 01:23] LABS: ACETAMINOPHEN LEVEL < 2.0 UG/ML (10.0-30.0); ALT/SGPT 18 U/L (12-78); BILIRUBIN,DIRECT 0.3 MG/DL (0.0-0.2); BILIRUBIN,TOTAL 0.5 MG/DL (0.2-1.0); BLOOD UREA NITROGEN 10 MG/DL (7-18); CALCIUM LEVEL 8.4 MG/DL (8.8-10.2); CARBON DIOXIDE LEVEL 24 MEQ/L (21-32); CHLORIDE LEVEL 105 MEQ/L (98-107); CREATININE FOR GFR 0.98 MG/DL (0.55-1.30); ETHYL ALCOHOL (ETHANOL) 0.029 % (0.000-0.010); GLOMERULAR FILTRATION RATE 58.4 (>39); GLUCOSE, FASTING 376 MG/DL (70-100); POTASSIUM SERUM 3.4 MEQ/L (3.5-5.1); RSV AMPLIFICATION NEGATIVE (NEGATIVE); SALICYLATE LEVEL < 1.7 MG/DL (5.0-30.0); SODIUM LEVEL 138 MEQ/L (136-145); TOTAL PROTEIN 7.5 GM/DL (6.4-8.2)
== END 2021-10-23 02:43 | disposition home or self-care (01) ==
LOC: M ED 23:54
DX: F43.0 Acute stress reaction (principal); F10.10 Alcohol abuse, uncomplicated; I48.91 Unspecified atrial fibrillation; E11.9 Type 2 diabetes mellitus without complications; I10 Essential (primary) hypertension; Z79.01 Long term (current) use of anticoagulants; Z79.899 Other long term (current) drug therapy

== ENCOUNTER → 2022-02-17 | Outpatient (CLI) | payer MEDICARE ==
[~2022-02-17] MED LIST changes: +ALBU2.5V10 INH; -ALBU83IN INH; +ALCOPAD25 TOP; +BLOOKIT21 XX; -CHOL4POW15 PO; +CHOL4POW26 PO; +EUTH75TA PO; +FLUO1TAB3 PO; +GABA-282 PO; +GLUC1TES2 XX; +ISOVUE-370 76% 25ML SYRINGE As Ordered ONE; +JARD1TAB PO; +LANC30MI XX; +LEVO1TAB40 PO; +LEVO2TA PO; +TRES100I SC
== END ==
LOC: M RAD 16:02
PROVIDERS: ATTEND Nurse Practitioner Family
DX: R59.0 Localized enlarged lymph nodes (principal)
CPT/HCPCS: 71260; Q9967

== ENCOUNTER 2022-03-24 12:03 | Inpatient (IN) | payer MEDICARE ==
[~2022-03-24] VITALS: Ht 157.5 cm; Wt 93.8 kg
[~2022-03-24 12:03] MED LIST changes: -ISOVUE-370 76% 25ML SYRINGE As Ordered ONE
[2022-03-24 13:18] LABS: VENOUS HCO3 27.2 MEQ/L (23.0-27.0); VENOUS O2 SATURATION 66.7 % (60.0-80.0); VENOUS PARTIAL PRESSURE CO2 50.9 mmHg (38.0-50.0); VENOUS PARTIAL PRESSURE O2 38.9 mmHg (30.0-50.0); VENOUS PH 7.346 UNITS (7.330-7.430); VENOUS STANDARD HCO3 24.8 MEQ/L; VENOUS TOTAL CO2 28.8 MEQ/L (24.0-28.0)
[2022-03-24 13:26] LABS: BASO # 0.1 10^3/uL (0.0-0.2); BASO % 0.8 % (0.0-1.0); EOS # 0.2 10^3/uL (0.0-0.5); HEMATOCRIT 30.6 % (36.0-47.0); HEMOGLOBIN 9.3 g/dl (12.0-15.5); LYMPH # 0.9 10^3/uL (1.5-5.0); LYMPH % 10.6 % (24.0-44.0); MEAN CORPUSCULAR HEMOGLOBIN 27.2 pg (27.0-33.0); MEAN CORPUSCULAR HGB CONC 30.4 g/dl (32.0-36.5); MEAN CORPUSCULAR VOLUME 89.5 fl (80.0-96.0); MONO # 0.5 10^3/uL (0.0-0.8); MONO % 6.2 % (2.0-8.0); NEUTROPHILS # 6.9 10^3/uL (1.5-8.5); NEUTROPHILS % 79.8 % (36.0-66.0); PLATELET COUNT, AUTOMATED 266 10^3/uL (150-450); RED BLOOD COUNT 3.42 10^6/uL (4.00-5.40); WHITE BLOOD COUNT 8.7 10^3/uL (4.0-10.0)
[2022-03-24 13:58] LABS: CPK CREATINE PHOSPHOKINASE 35 U/L (26-192)
[2022-03-24 14:09] LABS: ALBUMIN 3.1 GM/DL (3.2-5.2); BILIRUBIN,DIRECT 0.4 MG/DL (0.0-0.2); BILIRUBIN,TOTAL 0.9 MG/DL (0.2-1.0); CALCIUM LEVEL 8.5 MG/DL (8.8-10.2); CREATININE FOR GFR 0.98 MG/DL (0.55-1.30); GLOMERULAR FILTRATION RATE 58.4 (>39); THYROID STIMULATING HORMONE 9.44 uIU/ML (0.358-3.740); TOTAL PROTEIN 7.4 GM/DL (6.4-8.2)
[2022-03-24] MEDS ORDERED: ISOVUE-370 76% 100ML VIAL As Ordered ONE (14:37)
[2022-03-24] MEDS ORDERED: FUROSEMIDE 100MG/10ML VIAL (J1940) IV ONE (15:40)
[2022-03-24] MEDS ORDERED: IPRATROPIUM 0.5MG/ALBUTEROL 2.5MG INH SOL UD 3ML (DUONEB) NEB PRN (16:15)
[2022-03-24] MEDS ORDERED: GLUCOSE 4GM CHEW TABLET PO PRN (16:15)
[2022-03-24] MEDS ORDERED: DEXTROSE 50% 50 ML SYRINGE IV PRN (16:15)
[2022-03-24] MEDS ORDERED: ACETAMINOPHEN TAB 650MG DOSE (2X325MG) PO PRN (16:15)
[2022-03-24] MEDS ORDERED: GLUCAGON INJ 1MG VIAL SC PRN (16:15)
[2022-03-24] MEDS ORDERED: LORazepam 2 MG/ML VIAL IV STA (16:26)
[2022-03-24] MEDS ORDERED: LORazepam 2 MG/ML VIAL As Ordered ONE (16:28)
[2022-03-24] MEDS: INSULIN LISPRO (NovoLOG) PER UNIT SC SCH ×2 (17:30→21:00)
[2022-03-24] MEDS ORDERED: guaiFENesin 200 MG TAB PO PRN (17:35)
[2022-03-24 18:01] LABS: FREE T4 1.21 NG/DL (0.76-1.46); THYROXINE (T4) 7.6 UG/DL (4.5-12.0)
[2022-03-24] MEDS ORDERED: ELIQ5TAB PO (18:37)
[2022-03-24] MEDS ORDERED: FLUO-96 PO (18:37)
[2022-03-24] MEDS ORDERED: MIRT-10 PO (18:37)
[2022-03-24] MEDS ORDERED: GABA-282 PO (18:37)
[2022-03-24] MEDS ORDERED: HOME MED LIST COMPLETE! XX SCH ×2 (18:40→19:45)
[2022-03-24] MEDS: DIGOXIN 0.125 MG TAB PO SCH (19:00)
[2022-03-24] MEDS ORDERED: TRES100I SC (19:41)
[2022-03-24] MEDS ORDERED: DIGO0.123 PO (19:41)
[2022-03-24] MEDS ORDERED: PANT40TA29 PO (19:41)
[2022-03-24] MEDS ORDERED: GLIP5TAB8 PO (19:41)
[2022-03-24] MEDS ORDERED: LEVO200T4 PO (19:41)
[2022-03-24] MEDS ORDERED: ALLO100T PO (19:41)
[2022-03-24] MEDS ORDERED: LEVO75TA4 PO (19:41)
[2022-03-24] MEDS ORDERED: METF10004 PO (19:41)
[2022-03-24] MEDS ORDERED: TORS20TA2 PO (19:42)
[2022-03-24] MEDS: IPRATROPIUM 0.5MG/ALBUTEROL 2.5MG INH SOL UD 3ML (DUONEB) NEB SCH (20:00)
[2022-03-24] MEDS ORDERED: methylPREDNISolone 125MG 2ML VIAL IV ONE (20:05)
[2022-03-24] MEDS ORDERED: ALBUTEROL SULFATE 2.5 MG/0.5 ML INH NEB SOLN NEB ONE (20:05)
[2022-03-24] MEDS ORDERED: NS 250 ML IV ONE ×2 (20:15→21:05)
[2022-03-24] MEDS: AZITHROMYCIN 250MG TABLET PO SCH (21:00)
[2022-03-24] MEDS: MIRTAZAPINE 15 MG TAB PO SCH (21:00)
[2022-03-24] MEDS: APIXABAN 5 MG TAB (ELIQUIS) PO SCH (21:00)
[2022-03-24] MEDS: GABAPENTIN 300 MG CAP PO SCH (21:00)
[2022-03-24 23:45] VITALS: BP 117/61
[2022-03-25] VITALS (19 sets, daily range): BP systolic 103–157; BP diastolic 56–83
[2022-03-25 00:20] LABS: ABG BASE EXCESS -2.1 (-2.0-2.0); ABG HCO3 22.6 MEQ/L (22.0-26.0); ABG O2 SATURATION 98.4 % (95.0-99.0); ABG PARTIAL PRESSURE CO2 38.1 mmHg (35.0-45.0); ABG PARTIAL PRESSURE O2 121.5 mmHg (75.0-100.0); ABG STANDARD HCO3 22.8 MEQ/L (22.0-26.0); ABG TOTAL CO2 23.8 MEQ/L (23.0-31.0); ABG pH (ARTERIAL) 7.391 UNITS (7.350-7.450)
[2022-03-25] MEDS ORDERED: FUROSEMIDE 20MG/2ML VIAL (J1940) IV STA (00:28)
[2022-03-25] MEDS: rOPINIRole 0.25 MG TAB(REQUIP) PO SCH ×2 (00:43→20:37)
[2022-03-25] MEDS: IPRATROPIUM 0.5MG/ALBUTEROL 2.5MG INH SOL UD 3ML (DUONEB) NEB SCH ×4 (01:45→20:31)
[2022-03-25] MEDS: methylPREDNISolone 40MG 1ML VIAL IV SCH ×4 (03:08→20:37)
[2022-03-25 04:31] LABS: HEMATOCRIT 31.4 % (36.0-47.0); HEMOGLOBIN 9.4 g/dl (12.0-15.5); MEAN CORPUSCULAR HEMOGLOBIN 26.8 pg (27.0-33.0); MEAN CORPUSCULAR HGB CONC 29.9 g/dl (32.0-36.5); MEAN CORPUSCULAR VOLUME 89.5 fl (80.0-96.0); PLATELET COUNT, AUTOMATED 255 10^3/uL (150-450); RED BLOOD COUNT 3.51 10^6/uL (4.00-5.40); WHITE BLOOD COUNT 13.5 10^3/uL (4.0-10.0)
[2022-03-25 05:12] LABS: BILIRUBIN,TOTAL 0.9 MG/DL (0.2-1.0); CALCIUM LEVEL 8.2 MG/DL (8.8-10.2); CREATININE FOR GFR 1.02 MG/DL (0.55-1.30); GLOMERULAR FILTRATION RATE 55.8 (>39); MAGNESIUM LEVEL 1.8 MG/DL (1.8-2.4); TOTAL PROTEIN 7.3 GM/DL (6.4-8.2)
[2022-03-25] MEDS: FLUoxetine 20MG CAP PO SCH (08:29)
[2022-03-25] MEDS: APIXABAN 5 MG TAB (ELIQUIS) PO SCH ×2 (08:29→20:37)
[2022-03-25] MEDS: GABAPENTIN 300 MG CAP PO SCH ×2 (08:30→20:37)
[2022-03-25] MEDS: DIGOXIN 0.125 MG TAB PO SCH (08:30)
[2022-03-25] MEDS: INSULIN LISPRO (NovoLOG) PER UNIT SC SCH ×4 (08:31→20:38)
[2022-03-25] MEDS ORDERED: FLUBLOK(EGG FREE)(QUAD)INFLUENZA VACC 0.5ML SYRINGE 18YRS & OLDER IM.IMMUN ONE (09:00)
[2022-03-25] MEDS ORDERED: AZITHROMYCIN 250MG TABLET PO SCH (09:00)
[2022-03-25] MEDS ORDERED: TORSEMIDE 20 MG TAB PO SCH (09:00)
[2022-03-25] MEDS: cefTRIAXone SOD 1 GM in D5W MINI-BAG PLUS 50 ML IV SCH (12:57)
[2022-03-25] MEDS: PANTOPRAZOLE 40MG TAB (PROTONIX) PO SCH (12:57)
[2022-03-25] MEDS: AZITHROMYCIN 250MG TABLET PO SCH (20:37)
[2022-03-25] MEDS: MIRTAZAPINE 15 MG TAB PO SCH (20:37)
[2022-03-25] MEDS ORDERED: ONDANSETRON 4MG 2ML VIAL IV ONE (20:55)
[2022-03-26] VITALS: BP 108/55
[2022-03-26] MEDS: IPRATROPIUM 0.5MG/ALBUTEROL 2.5MG INH SOL UD 3ML (DUONEB) NEB SCH ×3 (01:37→13:43)
[2022-03-26] MEDS: methylPREDNISolone 40MG 1ML VIAL IV SCH (02:54)
[2022-03-26 04:00] VITALS: BP 104/56
[2022-03-26 05:25] LABS: BASO % 0.1 % (0.0-1.0); HEMATOCRIT 26.8 % (36.0-47.0); HEMOGLOBIN 8.2 g/dl (12.0-15.5); LYMPH # 0.3 10^3/uL (1.5-5.0); LYMPH % 2.3 % (24.0-44.0); MEAN CORPUSCULAR HEMOGLOBIN 27.1 pg (27.0-33.0); MEAN CORPUSCULAR HGB CONC 30.6 g/dl (32.0-36.5); MEAN CORPUSCULAR VOLUME 88.4 fl (80.0-96.0); MONO # 0.3 10^3/uL (0.0-0.8); MONO % 1.8 % (2.0-8.0); NEUTROPHILS # 13.2 10^3/uL (1.5-8.5); NEUTROPHILS % 95.1 % (36.0-66.0); PLATELET COUNT, AUTOMATED 267 10^3/uL (150-450); RED BLOOD COUNT 3.03 10^6/uL (4.00-5.40); WHITE BLOOD COUNT 13.8 10^3/uL (4.0-10.0)
[2022-03-26] MEDS: LEVOTHYROXINE 75MCG TABLET (0.075MG) PO SCH (06:02)
[2022-03-26] MEDS: LEVOTHYROXINE 100MCG TABLET (0.1MG) PO SCH (06:02)
[2022-03-26 06:33] LABS: ALBUMIN 2.9 GM/DL (3.2-5.2); BILIRUBIN,TOTAL 0.6 MG/DL (0.2-1.0); CALCIUM LEVEL 8.2 MG/DL (8.8-10.2); CREATININE FOR GFR 1.14 MG/DL (0.55-1.30); GLOMERULAR FILTRATION RATE 49.1 (>39); POTASSIUM SERUM 4.4 MEQ/L (3.5-5.1); TOTAL PROTEIN 7.1 GM/DL (6.4-8.2)
[2022-03-26] MEDS ORDERED: predniSONE 50 MG TAB PO ONE (06:55)
[2022-03-26] MEDS ORDERED: GLIP5TAB8 PO (08:30)
[2022-03-26] MEDS ORDERED: VENTAER INH (08:30)
[2022-03-26] MEDS ORDERED: ELIQ5TAB PO (08:30)
[2022-03-26] MEDS ORDERED: PRED10TA2 PO (08:30)
[2022-03-26] MEDS ORDERED: DIGO0.123 PO (08:30)
[2022-03-26] MEDS ORDERED: GUAI20TA PO (08:30)
[2022-03-26] MEDS ORDERED: LEVO1TAB40 PO (08:44)
[2022-03-26] MEDS: GABAPENTIN 300 MG CAP PO SCH ×2 (08:49→20:09)
[2022-03-26] MEDS: APIXABAN 5 MG TAB (ELIQUIS) PO SCH ×2 (08:49→20:09)
[2022-03-26] MEDS: FLUoxetine 20MG CAP PO SCH (08:49)
[2022-03-26] MEDS: DIGOXIN 0.125 MG TAB PO SCH (08:49)
[2022-03-26] MEDS: PANTOPRAZOLE 40MG TAB (PROTONIX) PO SCH (08:49)
[2022-03-26] MEDS: INSULIN LISPRO (NovoLOG) PER UNIT SC SCH ×4 (08:50→20:08)
[2022-03-26 08:56] VITALS: BP 117/68
[2022-03-26] MEDS ORDERED: AZITHROMYCIN 250MG TABLET PO ONE (09:00)
[2022-03-26 12:00] VITALS: BP 126/84
[2022-03-26] MEDS: cefTRIAXone SOD 1 GM in D5W MINI-BAG PLUS 50 ML IV SCH (13:20)
[2022-03-26 16:03] VITALS: BP 129/60
[2022-03-26] MEDS: TORSEMIDE 20 MG TAB PO SCH (18:02)
[2022-03-26 20:00] VITALS: BP 125/59
[2022-03-26] MEDS: AZITHROMYCIN 250MG TABLET PO SCH (20:08)
[2022-03-26] MEDS: rOPINIRole 0.25 MG TAB(REQUIP) PO SCH (20:09)
[2022-03-26] MEDS: MIRTAZAPINE 15 MG TAB PO SCH (20:09)
[2022-03-26] MEDS: LEVALBUTEROL 1.25 MG/0.5 ML CONCENTRATE NEB INH SCH (20:50)
[2022-03-27] VITALS (13 sets, daily range): BP systolic 93–120; BP diastolic 52–89
[2022-03-27] MEDS: LEVALBUTEROL 1.25 MG/0.5 ML CONCENTRATE NEB INH SCH ×4 (01:45→19:56)
[2022-03-27 04:47] LABS: HEMATOCRIT 22.9 % (36.0-47.0); LYMPH # 0.6 10^3/uL (1.5-5.0); LYMPH % 4.9 % (24.0-44.0); MEAN CORPUSCULAR HEMOGLOBIN 26.9 pg (27.0-33.0); MEAN CORPUSCULAR HGB CONC 30.6 g/dl (32.0-36.5); MEAN CORPUSCULAR VOLUME 88.1 fl (80.0-96.0); MONO # 0.6 10^3/uL (0.0-0.8); MONO % 4.9 % (2.0-8.0); NEUTROPHILS % 89.5 % (36.0-66.0); PLATELET COUNT, AUTOMATED 234 10^3/uL (150-450); WHITE BLOOD COUNT 11.2 10^3/uL (4.0-10.0)
[2022-03-27] MEDS: LEVOTHYROXINE 75MCG TABLET (0.075MG) PO SCH (05:22)
[2022-03-27] MEDS: LEVOTHYROXINE 100MCG TABLET (0.1MG) PO SCH (05:22)
[2022-03-27 05:42] LABS: ALBUMIN 2.8 GM/DL (3.2-5.2); BILIRUBIN,TOTAL 0.5 MG/DL (0.2-1.0); CALCIUM LEVEL 7.9 MG/DL (8.8-10.2); CREATININE FOR GFR 1.16 MG/DL (0.55-1.30); DIGOXIN LEVEL 0.7 NG/ML (0.5-2.0); GLOMERULAR FILTRATION RATE 48.1 (>39); MAGNESIUM LEVEL 1.9 MG/DL (1.8-2.4); POTASSIUM SERUM 3.8 MEQ/L (3.5-5.1); TOTAL PROTEIN 6.6 GM/DL (6.4-8.2)
[2022-03-27] MEDS: PANTOPRAZOLE 40MG TAB (PROTONIX) PO SCH (08:18)
[2022-03-27] MEDS: INSULIN LISPRO (NovoLOG) PER UNIT SC SCH ×4 (08:18→20:20)
[2022-03-27] MEDS: APIXABAN 5 MG TAB (ELIQUIS) PO SCH (08:19)
[2022-03-27] MEDS: TORSEMIDE 20 MG TAB PO SCH (08:19)
[2022-03-27] MEDS: FLUoxetine 20MG CAP PO SCH (08:19)
[2022-03-27] MEDS: DIGOXIN 0.125 MG TAB PO SCH (08:19)
[2022-03-27] MEDS: GABAPENTIN 300 MG CAP PO SCH ×2 (08:19→20:20)
[2022-03-27 09:46] LABS: PERCENT SATURATION 5.4 % (13.2-45.0)
[2022-03-27] MEDS: FERROUS SULFATE 325MG TAB PO SCH (11:37)
[2022-03-27] MEDS: cefTRIAXone SOD 1 GM in D5W MINI-BAG PLUS 50 ML IV SCH (13:18)
[2022-03-27 14:08] LABS: HEMATOCRIT 29.2 % (36.0-47.0); HEMOGLOBIN 8.9 g/dl (12.0-15.5)
[2022-03-27] MEDS: rOPINIRole 0.25 MG TAB(REQUIP) PO SCH (20:20)
[2022-03-27] MEDS: MIRTAZAPINE 15 MG TAB PO SCH (20:20)
[2022-03-28 00:14] VITALS: BP 100/55
[2022-03-28] MEDS: LEVALBUTEROL 1.25 MG/0.5 ML CONCENTRATE NEB INH SCH ×4 (01:31→21:58)
[2022-03-28 04:29] VITALS: BP 102/60
[2022-03-28] MEDS: LEVOTHYROXINE 75MCG TABLET (0.075MG) PO SCH (05:44)
[2022-03-28] MEDS: LEVOTHYROXINE 100MCG TABLET (0.1MG) PO SCH (05:44)
[2022-03-28 06:20] LABS: BASO % 0.1 % (0.0-1.0); EOS # 0.1 10^3/uL (0.0-0.5); EOS % 1.4 % (0.0-3.0); HEMATOCRIT 26.4 % (36.0-47.0); HEMOGLOBIN 8.3 g/dl (12.0-15.5); LYMPH # 1.4 10^3/uL (1.5-5.0); LYMPH % 16.2 % (24.0-44.0); MEAN CORPUSCULAR HEMOGLOBIN 27.5 pg (27.0-33.0); MEAN CORPUSCULAR HGB CONC 31.4 g/dl (32.0-36.5); MEAN CORPUSCULAR VOLUME 87.4 fl (80.0-96.0); MONO # 0.7 10^3/uL (0.0-0.8); NEUTROPHILS # 6.4 10^3/uL (1.5-8.5); NEUTROPHILS % 73.4 % (36.0-66.0); PLATELET COUNT, AUTOMATED 237 10^3/uL (150-450); RED BLOOD COUNT 3.02 10^6/uL (4.00-5.40); WHITE BLOOD COUNT 8.8 10^3/uL (4.0-10.0)
[2022-03-28 06:56] LABS: ALBUMIN 2.8 GM/DL (3.2-5.2); BILIRUBIN,TOTAL 0.5 MG/DL (0.2-1.0); CALCIUM LEVEL 8.1 MG/DL (8.8-10.2); CREATININE FOR GFR 1.09 MG/DL (0.55-1.30); GLOMERULAR FILTRATION RATE 51.7 (>39); MAGNESIUM LEVEL 1.8 MG/DL (1.8-2.4); POTASSIUM SERUM 3.5 MEQ/L (3.5-5.1)
[2022-03-28] MEDS: INSULIN LISPRO (NovoLOG) PER UNIT SC SCH ×4 (07:30→20:02)
[2022-03-28 08:00] VITALS: BP 96/57
[2022-03-28] MEDS: TORSEMIDE 20 MG TAB PO SCH (08:32)
[2022-03-28] MEDS: FERROUS SULFATE 325MG TAB PO SCH (08:43)
[2022-03-28] MEDS: FLUoxetine 20MG CAP PO SCH (08:43)
[2022-03-28] MEDS: DIGOXIN 0.125 MG TAB PO SCH (08:43)
[2022-03-28] MEDS: PANTOPRAZOLE 40MG TAB (PROTONIX) PO SCH (08:43)
[2022-03-28] MEDS: GABAPENTIN 300 MG CAP PO SCH ×2 (08:43→20:02)
[2022-03-28] MEDS ORDERED: FLEET ENEMA PR SCH (11:00)
[2022-03-28] MEDS ORDERED: NS 1,000 ML IV SCH (11:00)
[2022-03-28] MEDS: cefTRIAXone SOD 1 GM in D5W MINI-BAG PLUS 50 ML IV SCH (13:04)
[2022-03-28 20:00] VITALS: BP 124/58
[2022-03-28] MEDS: MIRTAZAPINE 15 MG TAB PO SCH (20:02)
[2022-03-28] MEDS: rOPINIRole 0.25 MG TAB(REQUIP) PO SCH (20:02)
[2022-03-29] VITALS: BP 113/62
[2022-03-29] MEDS: LEVALBUTEROL 1.25 MG/0.5 ML CONCENTRATE NEB INH SCH ×2 (02:26→08:32)
[2022-03-29 04:00] VITALS: BP 114/56
[2022-03-29 05:18] LABS: BASO % 0.3 % (0.0-1.0); EOS # 0.2 10^3/uL (0.0-0.5); EOS % 3.4 % (0.0-3.0); HEMATOCRIT 26.7 % (36.0-47.0); HEMOGLOBIN 8.3 g/dl (12.0-15.5); LYMPH # 1.2 10^3/uL (1.5-5.0); LYMPH % 17.5 % (24.0-44.0); MEAN CORPUSCULAR HEMOGLOBIN 26.9 pg (27.0-33.0); MEAN CORPUSCULAR HGB CONC 31.1 g/dl (32.0-36.5); MEAN CORPUSCULAR VOLUME 86.4 fl (80.0-96.0); MONO # 0.6 10^3/uL (0.0-0.8); MONO % 8.2 % (2.0-8.0); NEUTROPHILS # 4.9 10^3/uL (1.5-8.5); NEUTROPHILS % 69.9 % (36.0-66.0); PLATELET COUNT, AUTOMATED 251 10^3/uL (150-450); RED BLOOD COUNT 3.09 10^6/uL (4.00-5.40); WHITE BLOOD COUNT 7.1 10^3/uL (4.0-10.0)
[2022-03-29 05:54] LABS: ALBUMIN 2.7 GM/DL (3.2-5.2); ALT/SGPT 37 U/L (12-78); BILIRUBIN,TOTAL 0.4 MG/DL (0.2-1.0); BLOOD UREA NITROGEN 37 MG/DL (7-18); CALCIUM LEVEL 8.1 MG/DL (8.8-10.2); CARBON DIOXIDE LEVEL 30 MEQ/L (21-32); CHLORIDE LEVEL 102 MEQ/L (98-107); CREATININE FOR GFR 0.89 MG/DL (0.55-1.30); GLOMERULAR FILTRATION RATE > 60.0 (>39); GLUCOSE, FASTING 193 MG/DL (70-100); MAGNESIUM LEVEL 1.9 MG/DL (1.8-2.4); POTASSIUM SERUM 3.6 MEQ/L (3.5-5.1); SODIUM LEVEL 140 MEQ/L (136-145); TOTAL PROTEIN 6.3 GM/DL (6.4-8.2)
[2022-03-29] MEDS: LEVOTHYROXINE 75MCG TABLET (0.075MG) PO SCH (06:18)
[2022-03-29] MEDS: LEVOTHYROXINE 100MCG TABLET (0.1MG) PO SCH (06:18)
[2022-03-29 08:00] VITALS: BP 106/66
[2022-03-29] MEDS: INSULIN LISPRO (NovoLOG) PER UNIT SC SCH (08:27)
[2022-03-29] MEDS: DIGOXIN 0.125 MG TAB PO SCH (08:28)
[2022-03-29] MEDS: FERROUS SULFATE 325MG TAB PO SCH (08:28)
[2022-03-29] MEDS: PANTOPRAZOLE 40MG TAB (PROTONIX) PO SCH (08:28)
[2022-03-29] MEDS: FLUoxetine 20MG CAP PO SCH (08:28)
[2022-03-29] MEDS: TORSEMIDE 20 MG TAB PO SCH (08:28)
[2022-03-29] MEDS: GABAPENTIN 300 MG CAP PO SCH (08:29)
[2022-03-29] MEDS ORDERED: metOLazone 5 MG TAB PO SCH (09:00)
[2022-03-29] MEDS ORDERED: TORS20TA2 PO (09:23)
[2022-03-29] MEDS ORDERED: FERR1TAB8 PO (09:23)
[2022-03-29] MEDS ORDERED: METO25TA PO (09:23)
[2022-03-29] MEDS ORDERED: PRED20TA PO (10:16)
[2022-03-29] MEDS ORDERED: AMOX875T2 PO (10:16)
[2022-03-29 12:00] VITALS: BP 114/60
== END 2022-03-29 12:50 | disposition home or self-care (01) | DRG 186 ==
LOC: EDBD 12:03 → M ED 12:03 → M ED INP 16:15 → CANRESERV 19:30 → ENRESERV 19:30 → M ICU 23:38 → M PCU 03-27 17:48
PROVIDERS: ADMIT Family Medicine; ATTEND Family Medicine
PROC: 0W993ZZ Drainage of Right Pleural Cavity, Percutaneous Approach (ICD-10-PCS; 2022-03-24)
PROC: B246ZZZ Ultrasonography of Right and Left Heart (ICD-10-PCS; 2022-03-26)
PROC: 30233N1 Transfusion of Nonautologous Red Blood Cells into Peripheral Vein, Percutaneous Approach (ICD-10-PCS; principal; 2022-03-27)
DX: J90 Pleural effusion, not elsewhere classified (principal); J96.01 Acute respiratory failure with hypoxia; I50.33 Acute on chronic diastolic (congestive) heart failure; J18.9 Pneumonia, unspecified organism; J44.1 Chronic obstructive pulmonary disease with (acute) exacerbation; C18.9 Malignant neoplasm of colon, unspecified; K92.2 Gastrointestinal hemorrhage, unspecified; I27.29 Other secondary pulmonary hypertension; I48.91 Unspecified atrial fibrillation; I11.0 Hypertensive heart disease with heart failure; E11.42 Type 2 diabetes mellitus with diabetic polyneuropathy; E03.9 Hypothyroidism, unspecified; K21.9 Gastro-esophageal reflux disease without esophagitis; G47.33 Obstructive sleep apnea (adult) (pediatric); F41.9 Anxiety disorder, unspecified; G25.81 Restless legs syndrome; Z79.01 Long term (current) use of anticoagulants; Z79.899 Other long term (current) drug therapy; Z79.890 Hormone replacement therapy; Z87.891 Personal history of nicotine dependence; Z20.822 Contact with and (suspected) exposure to COVID-19; K44.9 Diaphragmatic hernia without obstruction or gangrene; E66.9 Obesity, unspecified; I08.0 Rheumatic disorders of both mitral and aortic valves; E61.1 Iron deficiency

== ENCOUNTER 2022-06-02 11:59 | Inpatient (IN) | payer MEDICARE, OTHER ==
[~2022-06-02] VITALS: Ht 157.5 cm; Wt 97.5 kg
[2022-06-02] MEDS: DIGOXIN 0.125 MG TAB PO SCH (09:00)
[2022-06-02] MEDS: allopurinoL 100 MG TAB PO SCH (09:00)
[2022-06-02] MEDS: metOLazone 5 MG TAB PO SCH (09:00)
[2022-06-02] MEDS: TORSEMIDE 20 MG TAB PO SCH (09:00)
[2022-06-02] MEDS: PANTOPRAZOLE 40MG TAB (PROTONIX) PO SCH (09:00)
[~2022-06-02 11:59] MED LIST changes: +AMOX875T2 PO; +FERR1TAB8 PO; +FLUO-96 PO; +GUAI20TA PO; +LEVO200T4 PO; +LEVO75TA4 PO; +MIRT-10 PO; +PRED10TA2 PO; +PRED20TA PO
[2022-06-02] MEDS ORDERED: IPRATROPIUM 0.5MG/ALBUTEROL 2.5MG INH SOL UD 3ML (DUONEB) NEB ONE (13:10)
[2022-06-02 13:11] LABS: VENOUS BASE EXCESS 3.2 (-2.0-2.0); VENOUS HCO3 28.8 MEQ/L (23.0-27.0); VENOUS O2 SATURATION 55.1 % (60.0-80.0); VENOUS PARTIAL PRESSURE CO2 48.8 mmHg (38.0-50.0); VENOUS PARTIAL PRESSURE O2 30.8 mmHg (30.0-50.0); VENOUS PH 7.389 UNITS (7.330-7.430); VENOUS STANDARD HCO3 26.4 MEQ/L; VENOUS TOTAL CO2 30.3 MEQ/L (24.0-28.0)
[2022-06-02 13:16] LABS: BASO # 0.1 10^3/uL (0.0-0.2); EOS # 0.1 10^3/uL (0.0-0.5); EOS % 2.1 % (0.0-3.0); HEMATOCRIT 33.2 % (36.0-47.0); HEMOGLOBIN 10.1 g/dl (12.0-15.5); LYMPH # 0.7 10^3/uL (1.5-5.0); LYMPH % 10.9 % (24.0-44.0); MEAN CORPUSCULAR HEMOGLOBIN 25.2 pg (27.0-33.0); MEAN CORPUSCULAR HGB CONC 30.4 g/dl (32.0-36.5); MEAN CORPUSCULAR VOLUME 82.8 fl (80.0-96.0); MONO # 0.5 10^3/uL (0.0-0.8); MONO % 7.4 % (2.0-8.0); NEUTROPHILS # 4.9 10^3/uL (1.5-8.5); PLATELET COUNT, AUTOMATED 286 10^3/uL (150-450); RED BLOOD COUNT 4.01 10^6/uL (4.00-5.40); WHITE BLOOD COUNT 6.3 10^3/uL (4.0-10.0)
[2022-06-02 13:37] LABS: ABG BASE EXCESS 5.1 (-2.0-2.0); ABG HCO3 28.6 MEQ/L (22.0-26.0); ABG O2 SATURATION 88.1 % (95.0-99.0); ABG STANDARD HCO3 28.9 MEQ/L (22.0-26.0); ABG TOTAL CO2 29.8 MEQ/L (23.0-31.0); ABG pH (ARTERIAL) 7.495 UNITS (7.350-7.450)
[2022-06-02 13:45] LABS: CK-MB VALUE MASS 1.1 NG/ML (<3.6); CPK CREATINE PHOSPHOKINASE 53 U/L (34-145); MB/CK RELATIVE INDEX 2.07 (< OR =4)
[2022-06-02 13:46] LABS: ALBUMIN 3.4 G/DL (3.2-5.2); ALKALINE PHOSPHATASE 63 U/L (46-116); ALT/SGPT < 9 U/L (7.0-40); AST/SGOT 14 U/L (<34); BILIRUBIN,DIRECT 0.5 MG/DL (<0.4); BILIRUBIN,TOTAL 0.8 MG/DL (0.3-1.2); BLOOD UREA NITROGEN 32 MG/DL (9-23); CALCIUM LEVEL 8.9 MG/DL (8.3-10.6); CARBON DIOXIDE LEVEL 26 MMOL/L (20-31); CHLORIDE LEVEL 102 MMOL/L (98-107); CREATININE FOR GFR 1.05 MG/DL (0.55-1.30); GLUCOSE, FASTING 159 MG/DL (74-106); POTASSIUM SERUM 3.2 MMOL/L (3.5-5.1); SODIUM LEVEL 141 MMOL/L (136-145); TOTAL PROTEIN 7.6 G/DL (5.7-8.2)
[2022-06-02 13:50] LABS: THYROID STIMULATING HORMONE 10.401 uIU/ML (0.55-4.78)
[2022-06-02 14:25] LABS: RSV AMPLIFICATION NEGATIVE (NEGATIVE)
[2022-06-02] MEDS ORDERED: POTASSIUM CHLORIDE 10MEQ SR TABLET PO ONE (15:00)
[2022-06-02 15:06] LABS: MB/CK RELATIVE INDEX 1.92 (< OR =4)
[2022-06-02] MEDS ORDERED: PIPERACILLIN/TAZOBACTAM SOD 4.5 GM in D5W MINI-BAG PLUS 50 ML IV ONE (15:40)
[2022-06-02] MEDS ORDERED: VANCOMYCIN HCL 1,000 MG in IV FLUID PLACE HOLDER 1 EA IV ONE (15:40)
[2022-06-02] MEDS ORDERED: GLUCOSE 4GM CHEW TABLET PO PRN (15:45)
[2022-06-02] MEDS ORDERED: DEXTROSE 50% 50ML SYRINGE IV PRN (15:45)
[2022-06-02] MEDS ORDERED: GLUCAGON INJ 1MG VIAL SC PRN (15:45)
[2022-06-02] MEDS ORDERED: VANCOMYCIN HCL 1,000 MG, VIAL MATE ADAPTER 1 EACH in D5W 250 ML IV ONE ×2 (16:00→18:00)
[2022-06-02] MEDS ORDERED: ELIQ5TAB PO (16:36)
[2022-06-02] MEDS ORDERED: DIGO0.123 PO (16:36)
[2022-06-02] MEDS ORDERED: METO5TA PO (16:36)
[2022-06-02] MEDS ORDERED: ALBU8.5H INH (16:36)
[2022-06-02] MEDS ORDERED: FERR1TAB8 PO (16:36)
[2022-06-02] MEDS ORDERED: TORS20TA2 PO (16:36)
[2022-06-02] MEDS ORDERED: ALBU2.5V10 NEB (16:36)
[2022-06-02] MEDS ORDERED: HOME MED LIST COMPLETE! XX SCH (16:40)
[2022-06-02] MEDS ORDERED: LEVALBUTEROL 1.25MG 0.5ML CONCENTRATE NEB INH PRN (16:55)
[2022-06-02] MEDS ORDERED: IPRATROPIUM 0.02% SOLN 0.5MG 2.5ML NEB INH PRN (16:55)
[2022-06-02] MEDS: INSULIN LISPRO (NovoLOG) PER UNIT SC SCH ×2 (18:22→21:00)
[2022-06-02] MEDS ORDERED: VANCOMYCIN HCL 750 MG, VIAL MATE ADAPTER 1 EACH in D5W 250 ML IV ONE (19:00)
[2022-06-02] MEDS: LEVALBUTEROL 1.25MG 0.5ML CONCENTRATE NEB INH SCH (19:49)
[2022-06-02] MEDS: IPRATROPIUM 0.02% SOLN 0.5MG 2.5ML NEB INH SCH (19:49)
[2022-06-02 20:30] VITALS: BP 123/73
[2022-06-02] MEDS: guaiFENesin ER 600 MG TAB PO SCH (21:05)
[2022-06-02] MEDS: GABAPENTIN 300 MG CAP PO SCH (21:05)
[2022-06-02] MEDS: rOPINIRole 0.25 MG TAB(REQUIP) PO SCH (21:05)
[2022-06-02] MEDS: MIRTAZAPINE 15 MG TAB PO SCH (21:05)
[2022-06-02] MEDS: APIXABAN 5 MG TAB (ELIQUIS) PO SCH (21:05)
[2022-06-02 22:00] VITALS: BP 122/72
[2022-06-02] MEDS ORDERED: PIPERACILLIN/TAZOBACTAM SOD 3.375 GM in D5W MINI-BAG PLUS 50 ML IV SCH (22:00)
[2022-06-02] MEDS: PIPERACILLIN/TAZOBACTAM SOD 4.5 GM in D5W MINI-BAG PLUS 50 ML IV SCH (23:08)
[2022-06-03] MEDS ORDERED: VANCOMYCIN HCL 1,000 MG, VIAL MATE ADAPTER 1 EACH in NS 250 ML IV SCH ×3
[2022-06-03] MEDS: PIPERACILLIN/TAZOBACTAM SOD 4.5 GM in D5W MINI-BAG PLUS 50 ML IV SCH ×4 (05:00→22:44)
[2022-06-03 06:00] VITALS: BP 122/73
[2022-06-03] MEDS: LEVOTHYROXINE 100MCG TABLET (0.1MG) PO SCH (06:13)
[2022-06-03] MEDS: LEVOTHYROXINE 75MCG TABLET (0.075MG) PO SCH (06:13)
[2022-06-03] MEDS: IPRATROPIUM 0.02% SOLN 0.5MG 2.5ML NEB INH SCH ×4 (06:34→20:59)
[2022-06-03] MEDS: LEVALBUTEROL 1.25MG 0.5ML CONCENTRATE NEB INH SCH ×4 (06:34→21:03)
[2022-06-03 07:24] LABS: BASO # 0.1 10^3/uL (0.0-0.2); BASO % 1.1 % (0.0-1.0); EOS # 0.2 10^3/uL (0.0-0.5); EOS % 3.1 % (0.0-3.0); HEMATOCRIT 32.6 % (36.0-47.0); HEMOGLOBIN 9.4 g/dl (12.0-15.5); LYMPH # 0.9 10^3/uL (1.5-5.0); MEAN CORPUSCULAR HEMOGLOBIN 24.2 pg (27.0-33.0); MEAN CORPUSCULAR HGB CONC 28.8 g/dl (32.0-36.5); MEAN CORPUSCULAR VOLUME 83.8 fl (80.0-96.0); MONO # 0.6 10^3/uL (0.0-0.8); MONO % 8.3 % (2.0-8.0); NEUTROPHILS # 5.4 10^3/uL (1.5-8.5); NEUTROPHILS % 74.9 % (36.0-66.0); PLATELET COUNT, AUTOMATED 243 10^3/uL (150-450); RED BLOOD COUNT 3.89 10^6/uL (4.00-5.40); WHITE BLOOD COUNT 7.2 10^3/uL (4.0-10.0)
[2022-06-03 07:54] LABS: CALCIUM LEVEL 8.4 MG/DL (8.3-10.6); CREATININE FOR GFR 1.09 MG/DL (0.55-1.30); GLOMERULAR FILTRATION RATE 51.7 (>39); POTASSIUM SERUM 3.7 MMOL/L (3.5-5.1)
[2022-06-03] MEDS: INSULIN LISPRO (NovoLOG) PER UNIT SC SCH ×4 (08:57→21:00)
[2022-06-03] MEDS: TORSEMIDE 20 MG TAB PO SCH (08:58)
[2022-06-03] MEDS: GABAPENTIN 300 MG CAP PO SCH ×2 (09:00→21:11)
[2022-06-03] MEDS ORDERED: LEVEMIR (INSULIN DETEMIR) 1 UNITS/0.01ML SC SCH (09:00)
[2022-06-03] MEDS: VANCOMYCIN HCL 500 MG in D5W MINI-BAG PLUS 100 ML IV SCH (09:00)
[2022-06-03] MEDS: metOLazone 5 MG TAB PO SCH (09:00)
[2022-06-03] MEDS: guaiFENesin ER 600 MG TAB PO SCH ×2 (09:01→21:11)
[2022-06-03] MEDS: PANTOPRAZOLE 40MG TAB (PROTONIX) PO SCH (09:02)
[2022-06-03] MEDS: allopurinoL 100 MG TAB PO SCH (09:02)
[2022-06-03] MEDS: FERROUS SULFATE 325MG TAB PO SCH (09:02)
[2022-06-03] MEDS: DIGOXIN 0.125 MG TAB PO SCH (09:02)
[2022-06-03] MEDS: APIXABAN 5 MG TAB (ELIQUIS) PO SCH ×2 (09:02→21:11)
[2022-06-03] MEDS: VANCOMYCIN HCL 750 MG, VIAL MATE ADAPTER 1 EACH in D5W 250 ML IV SCH (10:14)
[2022-06-03 14:00] VITALS: BP 140/80
[2022-06-03 15:44] VITALS: O2SAT 96
[2022-06-03 21:11] VITALS: O2SAT 92
[2022-06-03] MEDS: rOPINIRole 0.25 MG TAB(REQUIP) PO SCH (21:11)
[2022-06-03] MEDS: MIRTAZAPINE 15 MG TAB PO SCH (21:11)
[2022-06-03 22:00] VITALS: BP 116/72
[2022-06-04] MEDS: LEVOTHYROXINE 75MCG TABLET (0.075MG) PO SCH (05:36)
[2022-06-04] MEDS: LEVOTHYROXINE 100MCG TABLET (0.1MG) PO SCH (05:36)
[2022-06-04] MEDS: PIPERACILLIN/TAZOBACTAM SOD 4.5 GM in D5W MINI-BAG PLUS 50 ML IV SCH ×4 (05:38→22:38)
[2022-06-04 06:00] VITALS: BP 117/72
[2022-06-04 06:52] LABS: BASO # 0.1 10^3/uL (0.0-0.2); BASO % 0.9 % (0.0-1.0); EOS # 0.2 10^3/uL (0.0-0.5); EOS % 2.5 % (0.0-3.0); HEMATOCRIT 33.6 % (36.0-47.0); HEMOGLOBIN 9.4 g/dl (12.0-15.5); LYMPH # 0.9 10^3/uL (1.5-5.0); LYMPH % 11.1 % (24.0-44.0); MEAN CORPUSCULAR HEMOGLOBIN 23.9 pg (27.0-33.0); MEAN CORPUSCULAR VOLUME 85.5 fl (80.0-96.0); MONO # 0.6 10^3/uL (0.0-0.8); MONO % 7.3 % (2.0-8.0); NEUTROPHILS # 6.3 10^3/uL (1.5-8.5); NEUTROPHILS % 77.8 % (36.0-66.0); PLATELET COUNT, AUTOMATED 244 10^3/uL (150-450); RED BLOOD COUNT 3.93 10^6/uL (4.00-5.40)
[2022-06-04 07:17] LABS: CALCIUM LEVEL 8.5 MG/DL (8.3-10.6); CREATININE FOR GFR 1.26 MG/DL (0.55-1.30); GLOMERULAR FILTRATION RATE 43.7 (>39); POTASSIUM SERUM 3.3 MMOL/L (3.5-5.1)
[2022-06-04] MEDS: GABAPENTIN 300 MG CAP PO SCH ×2 (08:34→22:25)
[2022-06-04] MEDS: TORSEMIDE 20 MG TAB PO SCH (08:34)
[2022-06-04] MEDS: metOLazone 5 MG TAB PO SCH (08:35)
[2022-06-04] MEDS: APIXABAN 5 MG TAB (ELIQUIS) PO SCH ×2 (08:35→22:25)
[2022-06-04] MEDS: PANTOPRAZOLE 40MG TAB (PROTONIX) PO SCH (08:35)
[2022-06-04] MEDS: DIGOXIN 0.125 MG TAB PO SCH (08:35)
[2022-06-04] MEDS: allopurinoL 100 MG TAB PO SCH (08:35)
[2022-06-04] MEDS: guaiFENesin ER 600 MG TAB PO SCH ×2 (08:35→22:26)
[2022-06-04] MEDS: INSULIN LISPRO (NovoLOG) PER UNIT SC SCH ×4 (08:36→21:00)
[2022-06-04] MEDS: FERROUS SULFATE 325MG TAB PO SCH (08:36)
[2022-06-04] MEDS: LEVEMIR (INSULIN DETEMIR) 1 UNITS/0.01ML SC SCH (08:37)
[2022-06-04] MEDS: VANCOMYCIN HCL 500 MG in D5W MINI-BAG PLUS 100 ML IV SCH (08:37)
[2022-06-04] MEDS: IPRATROPIUM 0.02% SOLN 0.5MG 2.5ML NEB INH SCH ×4 (08:47→19:16)
[2022-06-04] MEDS: LEVALBUTEROL 1.25MG 0.5ML CONCENTRATE NEB INH SCH ×4 (08:48→19:16)
[2022-06-04 08:53] VITALS: O2SAT 94
[2022-06-04] MEDS: VANCOMYCIN HCL 750 MG, VIAL MATE ADAPTER 1 EACH in D5W 250 ML IV SCH (10:11)
[2022-06-04 12:31] VITALS: O2SAT 100
[2022-06-04 21:41] VITALS: BP 116/71
[2022-06-04] MEDS: MIRTAZAPINE 15 MG TAB PO SCH (22:25)
[2022-06-04] MEDS: rOPINIRole 0.25 MG TAB(REQUIP) PO SCH (22:26)
[2022-06-05] MEDS: PIPERACILLIN/TAZOBACTAM SOD 4.5 GM in D5W MINI-BAG PLUS 50 ML IV SCH (05:15)
[2022-06-05] MEDS: LEVOTHYROXINE 100MCG TABLET (0.1MG) PO SCH (05:15)
[2022-06-05] MEDS: LEVOTHYROXINE 75MCG TABLET (0.075MG) PO SCH (05:15)
[2022-06-05 06:31] VITALS: BP 104/68
[2022-06-05] MEDS: IPRATROPIUM 0.02% SOLN 0.5MG 2.5ML NEB INH SCH ×4 (07:11→19:56)
[2022-06-05] MEDS: LEVALBUTEROL 1.25MG 0.5ML CONCENTRATE NEB INH SCH ×4 (07:11→19:57)
[2022-06-05 07:18] LABS: BASO # 0.1 10^3/uL (0.0-0.2); BASO % 0.6 % (0.0-1.0); EOS # 0.2 10^3/uL (0.0-0.5); EOS % 2.5 % (0.0-3.0); HEMOGLOBIN 9.1 g/dl (12.0-15.5); LYMPH # 0.7 10^3/uL (1.5-5.0); LYMPH % 8.9 % (24.0-44.0); MEAN CORPUSCULAR HEMOGLOBIN 24.4 pg (27.0-33.0); MEAN CORPUSCULAR HGB CONC 28.4 g/dl (32.0-36.5); MEAN CORPUSCULAR VOLUME 85.8 fl (80.0-96.0); MONO # 0.6 10^3/uL (0.0-0.8); MONO % 7.4 % (2.0-8.0); NEUTROPHILS # 6.5 10^3/uL (1.5-8.5); NEUTROPHILS % 80.2 % (36.0-66.0); PLATELET COUNT, AUTOMATED 214 10^3/uL (150-450); RED BLOOD COUNT 3.73 10^6/uL (4.00-5.40); WHITE BLOOD COUNT 8.1 10^3/uL (4.0-10.0)
[2022-06-05] MEDS ORDERED: methylPREDNISolone 125MG 2ML VIAL IV ONE (07:25)
[2022-06-05 07:37] LABS: CALCIUM LEVEL 8.2 MG/DL (8.3-10.6); CREATININE FOR GFR 1.2 MG/DL (0.55-1.30); GLOMERULAR FILTRATION RATE 46.3 (>39); POTASSIUM SERUM 2.8 MMOL/L (3.5-5.1)
[2022-06-05 07:59] LABS: MAGNESIUM LEVEL 1.5 MG/DL (1.8-2.4)
[2022-06-05] MEDS: INSULIN LISPRO (NovoLOG) PER UNIT SC SCH ×4 (08:30→21:26)
[2022-06-05] MEDS: guaiFENesin ER 600 MG TAB PO SCH ×2 (08:31→21:22)
[2022-06-05] MEDS: LACTOBACILLUS ACIDOPHILUS CAP (BACID) PO SCH ×4 (08:31→21:24)
[2022-06-05] MEDS: POTASSIUM CHLORIDE 10MEQ SR TABLET PO SCH ×3 (08:31→12:51)
[2022-06-05] MEDS: DIGOXIN 0.125 MG TAB PO SCH (08:32)
[2022-06-05] MEDS: FERROUS SULFATE 325MG TAB PO SCH (08:32)
[2022-06-05] MEDS: PANTOPRAZOLE 40MG TAB (PROTONIX) PO SCH (08:32)
[2022-06-05] MEDS: GABAPENTIN 300 MG CAP PO SCH ×2 (08:32→21:24)
[2022-06-05] MEDS: allopurinoL 100 MG TAB PO SCH (08:32)
[2022-06-05] MEDS: APIXABAN 5 MG TAB (ELIQUIS) PO SCH ×2 (08:32→21:24)
[2022-06-05] MEDS: FLUCONAZOLE 50MG TABLET PO SCH (08:32)
[2022-06-05] MEDS: LEVEMIR (INSULIN DETEMIR) 1 UNITS/0.01ML SC SCH (08:34)
[2022-06-05] MEDS: cefTRIAXone SOD 2 GM in D5W MINI-BAG PLUS 50 ML IV SCH (08:45)
[2022-06-05] MEDS ORDERED: MAG SULF 1GM/100ML (MAG RUN) 1 GM in IV 1 EA IV ONE ×4 (09:00)
[2022-06-05] MEDS ORDERED: VANCOMYCIN HCL 1,000 MG, VIAL MATE ADAPTER 1 EACH in D5W 250 ML IV SCH (10:00)
[2022-06-05] MEDS: methylPREDNISolone 125MG 2ML VIAL IV SCH ×2 (13:52→21:22)
[2022-06-05 14:00] VITALS: BP 113/71
[2022-06-05 19:43] VITALS: BP 113/68
[2022-06-05] MEDS: MIRTAZAPINE 15 MG TAB PO SCH (21:24)
[2022-06-05] MEDS: rOPINIRole 0.25 MG TAB(REQUIP) PO SCH (21:24)
[2022-06-06] MEDS: LEVALBUTEROL 1.25MG 0.5ML CONCENTRATE NEB INH SCH ×6 (00:07→19:52)
[2022-06-06] MEDS: IPRATROPIUM 0.02% SOLN 0.5MG 2.5ML NEB INH SCH ×6 (00:08→19:51)
[2022-06-06] MEDS: methylPREDNISolone 125MG 2ML VIAL IV SCH ×5 (02:53→19:11)
[2022-06-06 03:25] VITALS: O2SAT 92
[2022-06-06] MEDS: LEVOTHYROXINE 100MCG TABLET (0.1MG) PO SCH (05:30)
[2022-06-06] MEDS: LEVOTHYROXINE 75MCG TABLET (0.075MG) PO SCH (05:30)
[2022-06-06 06:00] VITALS: BP 118/71
[2022-06-06 07:44] LABS: BASO % 0.1 % (0.0-1.0); HEMATOCRIT 33.5 % (36.0-47.0); HEMOGLOBIN 9.6 g/dl (12.0-15.5); LYMPH # 0.3 10^3/uL (1.5-5.0); LYMPH % 3.3 % (24.0-44.0); MEAN CORPUSCULAR HEMOGLOBIN 23.9 pg (27.0-33.0); MEAN CORPUSCULAR HGB CONC 28.7 g/dl (32.0-36.5); MEAN CORPUSCULAR VOLUME 83.5 fl (80.0-96.0); MONO # 0.1 10^3/uL (0.0-0.8); MONO % 1.6 % (2.0-8.0); NEUTROPHILS # 7.9 10^3/uL (1.5-8.5); NEUTROPHILS % 94.3 % (36.0-66.0); PLATELET COUNT, AUTOMATED 210 10^3/uL (150-450); RED BLOOD COUNT 4.01 10^6/uL (4.00-5.40); WHITE BLOOD COUNT 8.4 10^3/uL (4.0-10.0)
[2022-06-06 08:10] LABS: CALCIUM LEVEL 8.3 MG/DL (8.3-10.6); CREATININE FOR GFR 1.25 MG/DL (0.55-1.30); GLOMERULAR FILTRATION RATE 44.1 (>39)
[2022-06-06] MEDS: cefTRIAXone SOD 2 GM in D5W MINI-BAG PLUS 50 ML IV SCH (08:14)
[2022-06-06] MEDS: LEVEMIR (INSULIN DETEMIR) 1 UNITS/0.01ML SC SCH (08:14)
[2022-06-06] MEDS: FLUCONAZOLE 50MG TABLET PO SCH (08:15)
[2022-06-06] MEDS: allopurinoL 100 MG TAB PO SCH (08:15)
[2022-06-06] MEDS: INSULIN LISPRO (NovoLOG) PER UNIT SC SCH ×4 (08:15→20:12)
[2022-06-06] MEDS: guaiFENesin ER 600 MG TAB PO SCH ×2 (08:16→20:12)
[2022-06-06] MEDS: DIGOXIN 0.125 MG TAB PO SCH (08:17)
[2022-06-06] MEDS: FERROUS SULFATE 325MG TAB PO SCH (08:17)
[2022-06-06] MEDS: GABAPENTIN 300 MG CAP PO SCH ×2 (08:18→20:12)
[2022-06-06] MEDS: APIXABAN 5 MG TAB (ELIQUIS) PO SCH ×2 (08:18→20:11)
[2022-06-06] MEDS: LACTOBACILLUS ACIDOPHILUS CAP (BACID) PO SCH ×4 (08:18→20:11)
[2022-06-06] MEDS: PANTOPRAZOLE 40MG TAB (PROTONIX) PO SCH (08:18)
[2022-06-06] MEDS: DOXYCYCLINE HYCLATE 100MG TABLET PO SCH ×2 (10:40→20:11)
[2022-06-06] MEDS ORDERED: predniSONE 20 MG TAB PO ONE (12:40)
[2022-06-06 14:00] VITALS: BP 142/87
[2022-06-06 20:02] VITALS: O2SAT 94
[2022-06-06] MEDS: MIRTAZAPINE 15 MG TAB PO SCH (20:11)
[2022-06-06] MEDS: rOPINIRole 0.25 MG TAB(REQUIP) PO SCH (20:11)
[2022-06-06 22:00] VITALS: BP 141/83
[2022-06-07] MEDS: IPRATROPIUM 0.02% SOLN 0.5MG 2.5ML NEB INH SCH ×3 (00:03→07:26)
[2022-06-07] MEDS: LEVALBUTEROL 1.25MG 0.5ML CONCENTRATE NEB INH SCH ×7 (00:03→23:30)
[2022-06-07] MEDS: methylPREDNISolone 125MG 2ML VIAL IV SCH (02:00)
[2022-06-07] MEDS: LEVOTHYROXINE 75MCG TABLET (0.075MG) PO SCH (05:58)
[2022-06-07] MEDS: LEVOTHYROXINE 100MCG TABLET (0.1MG) PO SCH (05:58)
[2022-06-07 06:00] VITALS: BP 136/82
[2022-06-07 07:56] LABS: BASO % 0.1 % (0.0-1.0); HEMATOCRIT 32.5 % (36.0-47.0); HEMOGLOBIN 9.4 g/dl (12.0-15.5); LYMPH # 0.3 10^3/uL (1.5-5.0); LYMPH % 2.5 % (24.0-44.0); MEAN CORPUSCULAR HEMOGLOBIN 24.5 pg (27.0-33.0); MEAN CORPUSCULAR HGB CONC 28.9 g/dl (32.0-36.5); MEAN CORPUSCULAR VOLUME 84.6 fl (80.0-96.0); MONO # 0.7 10^3/uL (0.0-0.8); MONO % 5.7 % (2.0-8.0); NEUTROPHILS # 10.5 10^3/uL (1.5-8.5); NEUTROPHILS % 91.2 % (36.0-66.0); PLATELET COUNT, AUTOMATED 238 10^3/uL (150-450); RED BLOOD COUNT 3.84 10^6/uL (4.00-5.40); WHITE BLOOD COUNT 11.5 10^3/uL (4.0-10.0)
[2022-06-07 08:29] LABS: CALCIUM LEVEL 8.4 MG/DL (8.3-10.6); CREATININE FOR GFR 1.05 MG/DL (0.55-1.30); POTASSIUM SERUM 3.6 MMOL/L (3.5-5.1)
[2022-06-07] MEDS ORDERED: LEVEMIR (INSULIN DETEMIR) 1 UNITS/0.01ML SC SCH ×2 (09:00→21:00)
[2022-06-07] MEDS: LACTOBACILLUS ACIDOPHILUS CAP (BACID) PO SCH ×4 (09:52→21:05)
[2022-06-07] MEDS: FLUCONAZOLE 50MG TABLET PO SCH (09:52)
[2022-06-07] MEDS: predniSONE 20 MG TAB PO SCH ×2 (09:52→21:05)
[2022-06-07] MEDS: allopurinoL 100 MG TAB PO SCH (09:52)
[2022-06-07] MEDS: DOXYCYCLINE HYCLATE 100MG TABLET PO SCH ×2 (09:53→21:05)
[2022-06-07] MEDS: GABAPENTIN 300 MG CAP PO SCH ×2 (09:53→21:04)
[2022-06-07] MEDS: DIGOXIN 0.125 MG TAB PO SCH (09:53)
[2022-06-07] MEDS: PANTOPRAZOLE 40MG TAB (PROTONIX) PO SCH (09:53)
[2022-06-07] MEDS: FERROUS SULFATE 325MG TAB PO SCH (09:53)
[2022-06-07] MEDS: APIXABAN 5 MG TAB (ELIQUIS) PO SCH ×2 (09:53→21:05)
[2022-06-07] MEDS: CEFDINIR 300 MG CAP (OMNICEF) PO SCH ×2 (09:53→21:05)
[2022-06-07] MEDS: guaiFENesin ER 600 MG TAB PO SCH ×2 (09:53→21:06)
[2022-06-07] MEDS ORDERED: LEVEMIR (INSULIN DETEMIR) 1 UNITS/0.01ML SC ONE (12:05)
[2022-06-07] MEDS ORDERED: FUROSEMIDE 40MG/4ML VIAL IV ONE (12:10)
[2022-06-07] MEDS ORDERED: METOPROLOL TART 25 MG TABLET PO SCH (12:10)
[2022-06-07] MEDS ORDERED: TORSEMIDE 20 MG TAB PO SCH (12:20)
[2022-06-07] MEDS: metOLazone 5 MG TAB PO SCH (12:56)
[2022-06-07] MEDS ORDERED: VARIBAR PUDDING 40% w/v 230ML TUBE As Ordered ONE (13:49)
[2022-06-07] MEDS ORDERED: VARIBAR NECTAR 40% w/v 240ML SUSP BTL As Ordered ONE (13:49)
[2022-06-07] MEDS ORDERED: E-Z-PAQUE 96% w/w SUSP 176GM BTL As Ordered ONE (13:50)
[2022-06-07 14:00] VITALS: BP 138/82
[2022-06-07 17:07] LABS: BODY FLUID CULTURE Not indicated. (.); LEGIONELLA ANTIGEN URINE Negative (Negative); ORGANISM ID Not indicated. (.); SPECIMEN SOURCE Urine (.); URINE STREP PNEUMONIAE ANTIGEN Negative (Negative)
[2022-06-07 20:34] VITALS: BP 137/75
[2022-06-07] MEDS ORDERED: INSULIN LISPRO (NovoLOG) PER UNIT SC ONE (20:40)
[2022-06-07] MEDS: rOPINIRole 0.25 MG TAB(REQUIP) PO SCH (21:04)
[2022-06-07] MEDS: MIRTAZAPINE 15 MG TAB PO SCH (21:04)
[2022-06-07] MEDS: METOPROLOL TART 12.5 MG PER 1/2 TAB PO SCH (21:06)
[2022-06-07 23:33] VITALS: O2SAT 96
[2022-06-08] MEDS: LEVALBUTEROL 1.25MG 0.5ML CONCENTRATE NEB INH SCH ×3 (03:45→12:23)
[2022-06-08] MEDS: LEVOTHYROXINE 75MCG TABLET (0.075MG) PO SCH (05:30)
[2022-06-08] MEDS: LEVOTHYROXINE 100MCG TABLET (0.1MG) PO SCH (05:30)
[2022-06-08 05:58] VITALS: BP 135/75
[2022-06-08 06:22] LABS: HEMATOCRIT 31.4 % (36.0-47.0); HEMOGLOBIN 9.1 g/dl (12.0-15.5); MEAN CORPUSCULAR HEMOGLOBIN 24.6 pg (27.0-33.0); MEAN CORPUSCULAR VOLUME 84.9 fl (80.0-96.0); PLATELET COUNT, AUTOMATED 217 10^3/uL (150-450); WHITE BLOOD COUNT 9.3 10^3/uL (4.0-10.0)
[2022-06-08 06:57] LABS: ALBUMIN 3.2 G/DL (3.2-5.2); BILIRUBIN,TOTAL 0.6 MG/DL (0.3-1.2); CALCIUM LEVEL 8.5 MG/DL (8.3-10.6); CREATININE FOR GFR 1.07 MG/DL (0.55-1.30); GLOMERULAR FILTRATION RATE 52.8 (>39); POTASSIUM SERUM 3.2 MMOL/L (3.5-5.1); TOTAL PROTEIN 7.4 G/DL (5.7-8.2)
[2022-06-08] MEDS ORDERED: POTASSIUM CHLORIDE 10MEQ SR TABLET PO ONE (08:00)
[2022-06-08] MEDS ORDERED: TORSEMIDE 20 MG TAB PO SCH (09:00)
[2022-06-08] MEDS ORDERED: FUROSEMIDE 40 MG TAB PO SCH (09:00)
[2022-06-08] MEDS ORDERED: LEVEMIR (INSULIN DETEMIR) 1 UNITS/0.01ML SC SCH (09:00)
[2022-06-08] MEDS: APIXABAN 5 MG TAB (ELIQUIS) PO SCH (09:27)
[2022-06-08] MEDS: CEFDINIR 300 MG CAP (OMNICEF) PO SCH (09:27)
[2022-06-08] MEDS: allopurinoL 100 MG TAB PO SCH (09:27)
[2022-06-08] MEDS: LACTOBACILLUS ACIDOPHILUS CAP (BACID) PO SCH ×2 (09:27→12:30)
[2022-06-08] MEDS: INSULIN LISPRO (NovoLOG) PER UNIT SC SCH ×2 (09:27→12:31)
[2022-06-08] MEDS: DIGOXIN 0.125 MG TAB PO SCH (09:27)
[2022-06-08] MEDS: predniSONE 20 MG TAB PO SCH (09:28)
[2022-06-08] MEDS: FERROUS SULFATE 325MG TAB PO SCH (09:28)
[2022-06-08] MEDS: metOLazone 5 MG TAB PO SCH (09:28)
[2022-06-08] MEDS: FLUCONAZOLE 50MG TABLET PO SCH (09:28)
[2022-06-08] MEDS: DOXYCYCLINE HYCLATE 100MG TABLET PO SCH (09:28)
[2022-06-08] MEDS: PANTOPRAZOLE 40MG TAB (PROTONIX) PO SCH (09:28)
[2022-06-08 09:29] VITALS: BP 149/81
[2022-06-08] MEDS: guaiFENesin ER 600 MG TAB PO SCH (09:29)
[2022-06-08] MEDS: GABAPENTIN 300 MG CAP PO SCH (09:29)
[2022-06-08] MEDS: METOPROLOL TART 12.5 MG PER 1/2 TAB PO SCH (09:29)
[2022-06-08] MEDS ORDERED: DOXY100T PO (12:07)
[2022-06-08] MEDS ORDERED: PRED20TA PO (12:07)
[2022-06-08] MEDS ORDERED: RISATAB3 PO (12:07)
[2022-06-08] MEDS ORDERED: MUCI600T31 PO (12:07)
[2022-06-08] MEDS ORDERED: CEFD300CAP PO (12:07)
[2022-06-08] MEDS ORDERED: AMOX875T2 PO (12:16)
[2022-06-08] MEDS ORDERED: METO1TAB87 PO (12:21)
[2022-06-08] MEDS ORDERED: INSULIN LISPRO (NovoLOG) PER UNIT SC SCH (21:00)
== END 2022-06-08 13:25 | disposition home health service (06) | DRG 177 ==
LOC: M ED 11:59 → EEVIPCON 15:42 → M ED INP 15:42 → M MS5PR 20:30
PROVIDERS: ADMIT General Practice; ATTEND Internal Medicine
DX: J69.0 Pneumonitis due to inhalation of food and vomit (principal); J96.01 Acute respiratory failure with hypoxia; I50.42 Chronic combined systolic (congestive) and diastolic (congestive) heart failure; I48.20 Chronic atrial fibrillation, unspecified; J44.0 Chronic obstructive pulmonary disease with (acute) lower respiratory infection; J44.1 Chronic obstructive pulmonary disease with (acute) exacerbation; K52.1 Toxic gastroenteritis and colitis; J18.9 Pneumonia, unspecified organism; I27.29 Other secondary pulmonary hypertension; D50.0 Iron deficiency anemia secondary to blood loss (chronic); E78.5 Hyperlipidemia, unspecified; E11.40 Type 2 diabetes mellitus with diabetic neuropathy, unspecified; E03.9 Hypothyroidism, unspecified; G47.33 Obstructive sleep apnea (adult) (pediatric); E66.9 Obesity, unspecified; K21.9 Gastro-esophageal reflux disease without esophagitis; K44.9 Diaphragmatic hernia without obstruction or gangrene; M19.90 Unspecified osteoarthritis, unspecified site; M10.9 Gout, unspecified; I08.0 Rheumatic disorders of both mitral and aortic valves; G25.81 Restless legs syndrome; F41.9 Anxiety disorder, unspecified; Z98.41 Cataract extraction status, right eye; Z90.49 Acquired absence of other specified parts of digestive tract; Z85.038 Personal history of other malignant neoplasm of large intestine; Z79.01 Long term (current) use of anticoagulants; Z79.4 Long term (current) use of insulin; Z79.890 Hormone replacement therapy; Z79.899 Other long term (current) drug therapy; E87.6 Hypokalemia; T36.8X5A Adverse effect of other systemic antibiotics, initial encounter; E11.65 Type 2 diabetes mellitus with hyperglycemia; T38.0X5A Adverse effect of glucocorticoids and synthetic analogues, initial encounter; Z68.38 Body mass index [BMI] 38.0-38.9, adult

== ENCOUNTER 2022-08-06 15:33 | Inpatient (IN) | payer MEDICARE, OTHER ==
[~2022-08-06] VITALS: Ht 157.5 cm; Wt 76.0 kg
[~2022-08-06 15:33] MED LIST changes: +ALBU2.5V10 NEB; +ALBU8.5H INH; +CEFD300CAP PO; +DIGO0.123 PEG; +DOXY100T PO; -FLUO10TA2 PO; +FLUO1TAB PO; +LEVO200T4 PEG; -LEVO200T4 PO; +LEVO75TA4 PEG; -LEVO75TA4 PO; +METF10004 PEG; +METO5TA PO; +MIRT-10 PEG; -MIRT-10 PO; +MUCI600T31 PO; +RISATAB3 PO; +ROPI0.5T3 PEG; -ROPI0.5T3 PO
[2022-08-06 17:30] VITALS: BP 132/60
[2022-08-06] MEDS: INSULIN LISPRO (NovoLOG) PER UNIT SC SCH ×2 (18:00→23:20)
[2022-08-06] MEDS ORDERED: methylPREDNISolone 125MG 2ML VIAL IV ONE (18:05)
[2022-08-06] MEDS ORDERED: methylPREDNISolone 125MG 2ML VIAL As Ordered ONE (18:06)
[2022-08-06 18:16] LABS: BASO # 0.1 10^3/uL (0.0-0.2); BASO % 0.2 % (0.0-1.0); HEMATOCRIT 33.5 % (36.0-47.0); HEMOGLOBIN 9.9 g/dl (12.0-15.5); LYMPH # 0.5 10^3/uL (1.5-5.0); LYMPH % 2.1 % (24.0-44.0); MEAN CORPUSCULAR HEMOGLOBIN 25.8 pg (27.0-33.0); MEAN CORPUSCULAR HGB CONC 29.6 g/dl (32.0-36.5); MEAN CORPUSCULAR VOLUME 87.2 fl (80.0-96.0); MONO # 0.7 10^3/uL (0.0-0.8); MONO % 2.6 % (2.0-8.0); NEUTROPHILS # 24.6 10^3/uL (1.5-8.5); NEUTROPHILS % 94.5 % (36.0-66.0); PLATELET COUNT, AUTOMATED 340 10^3/uL (150-450); RED BLOOD COUNT 3.84 10^6/uL (4.00-5.40)
[2022-08-06 18:19] LABS: ABG BASE EXCESS -7.2 (-2.0-2.0); ABG HCO3 18.4 MEQ/L (22.0-26.0); ABG O2 SATURATION 98.3 % (95.0-99.0); ABG PARTIAL PRESSURE CO2 37.6 mmHg (35.0-45.0); ABG PARTIAL PRESSURE O2 123.7 mmHg (75.0-100.0); ABG STANDARD HCO3 18.6 MEQ/L (22.0-26.0); ABG TOTAL CO2 19.6 MEQ/L (23.0-31.0); ABG pH (ARTERIAL) 7.308 UNITS (7.350-7.450)
[2022-08-06] MEDS ORDERED: GLUCOSE 4GM CHEW TABLET PO PRN (18:35)
[2022-08-06] MEDS ORDERED: DEXTROSE 50% 50ML SYRINGE IV PRN (18:35)
[2022-08-06] MEDS ORDERED: GLUCAGON INJ 1MG VIAL SC PRN (18:35)
[2022-08-06 18:41] LABS: CALCIUM LEVEL 8.2 MG/DL (8.3-10.6); CREATININE FOR GFR 1.97 MG/DL (0.55-1.30); GLOMERULAR FILTRATION RATE 26.1 (>39); POTASSIUM SERUM 5.3 MMOL/L (3.5-5.1)
[2022-08-06] MEDS ORDERED: NS 1,000 ML IV SCH (18:45)
[2022-08-06] MEDS ORDERED: MIRA3350 PO (19:11)
[2022-08-06] MEDS ORDERED: SENN-80 PEG (19:11)
[2022-08-06] MEDS ORDERED: MELA3TAB30 PEG (19:17)
[2022-08-06] MEDS ORDERED: METO25TA4 PEG (19:17)
[2022-08-06] MEDS ORDERED: MAGN400T2 PEG (19:17)
[2022-08-06 19:26] VITALS: BP 135/60
[2022-08-06 19:47] LABS: ALBUMIN 2.2 G/DL (3.2-5.2); BILIRUBIN,TOTAL 1.2 MG/DL (0.3-1.2); CREATININE FOR GFR 1.95 MG/DL (0.55-1.30); GLOMERULAR FILTRATION RATE 26.4 (>39); MAGNESIUM LEVEL 2.2 MG/DL (1.8-2.4); POTASSIUM SERUM 5.1 MMOL/L (3.5-5.1); TOTAL PROTEIN 7.8 G/DL (5.7-8.2)
[2022-08-06 20:00] VITALS: BP 120/57; PULSE 109; PULSE 113
[2022-08-06] MEDS ORDERED: PANT40GR PEG (20:11)
[2022-08-06] MEDS ORDERED: NICO7DIS4 TOP (20:11)
[2022-08-06] MEDS ORDERED: THERTAB52 PEG (20:11)
[2022-08-06] MEDS ORDERED: INSULANT INJ (20:11)
[2022-08-06] MEDS ORDERED: LASI40TA9 PEG (20:11)
[2022-08-06] MEDS ORDERED: HUMA100I3 SC (20:14)
[2022-08-06] MEDS ORDERED: HOME MED LIST COMPLETE! XX SCH (20:15)
[2022-08-06] MEDS: VANCOMYCIN HCL 1,000 MG, VIAL MATE ADAPTER 1 EACH in NS 250 ML IV SCH (20:22)
[2022-08-06] MEDS: IPRATROPIUM 0.5MG/ALBUTEROL 2.5MG INH SOL UD 3ML (DUONEB) NEB SCH (20:25)
[2022-08-06] MEDS ORDERED: METOPROLOL 5 MG/5 ML VIAL As Ordered ONE (20:47)
[2022-08-06] MEDS: METOPROLOL 5 MG/5 ML VIAL IV SCH ×3 (20:54→21:00)
[2022-08-06 21:00] VITALS: BP 119/57
[2022-08-06] MEDS ORDERED: MORPHINE 2 MG/ML 1ML VIAL IV ONE (21:00)
[2022-08-06] MEDS: APIXABAN 5 MG TAB (ELIQUIS) PEG SCH (21:00)
[2022-08-06] MEDS: PIPERACILLIN/TAZOBACTAM SOD 3.375 GM in D5W MINI-BAG PLUS 50 ML IV SCH (21:36)
[2022-08-06 22:00] VITALS: BP 117/58
[2022-08-06] MEDS ORDERED: VANCOMYCIN HCL 500 MG in D5W MINI-BAG PLUS 100 ML IV ONE (22:00)
[2022-08-06 23:00] VITALS: BP 109/58
[2022-08-07] VITALS (22 sets, daily range): BP systolic 102–149; BP diastolic 55–66; O2SAT 92–95
[2022-08-07] MEDS: PIPERACILLIN/TAZOBACTAM SOD 3.375 GM in D5W MINI-BAG PLUS 50 ML IV SCH ×4 (03:00→22:41)
[2022-08-07] MEDS: methylPREDNISolone 40MG 1ML VIAL IV SCH ×3 (04:00→21:44)
[2022-08-07] MEDS: INSULIN LISPRO (NovoLOG) PER UNIT SC SCH ×3 (06:06→17:45)
[2022-08-07 06:08] LABS: ABG BASE EXCESS -2.2 (-2.0-2.0); ABG HCO3 22.3 MEQ/L (22.0-26.0); ABG PARTIAL PRESSURE CO2 36.7 mmHg (35.0-45.0); ABG PARTIAL PRESSURE O2 95.2 mmHg (75.0-100.0); ABG STANDARD HCO3 22.7 MEQ/L (22.0-26.0); ABG TOTAL CO2 23.4 MEQ/L (23.0-31.0); ABG pH (ARTERIAL) 7.401 UNITS (7.350-7.450)
[2022-08-07] MEDS: IPRATROPIUM 0.5MG/ALBUTEROL 2.5MG INH SOL UD 3ML (DUONEB) NEB SCH ×4 (07:24→19:54)
[2022-08-07 07:43] LABS: HEMATOCRIT 29.6 % (36.0-47.0); HEMOGLOBIN 8.9 g/dl (12.0-15.5); MEAN CORPUSCULAR HEMOGLOBIN 26.2 pg (27.0-33.0); MEAN CORPUSCULAR HGB CONC 30.1 g/dl (32.0-36.5); MEAN CORPUSCULAR VOLUME 87.1 fl (80.0-96.0); PLATELET COUNT, AUTOMATED 281 10^3/uL (150-450); WHITE BLOOD COUNT 16.9 10^3/uL (4.0-10.0)
[2022-08-07 07:56] LABS: VANCOMYCIN RANDOM 18.3 UG/ML
[2022-08-07 08:08] LABS: BILIRUBIN,TOTAL 0.9 MG/DL (0.3-1.2); CALCIUM LEVEL 8.1 MG/DL (8.3-10.6); CREATININE FOR GFR 1.45 MG/DL (0.55-1.30); GLOMERULAR FILTRATION RATE 37.2 (>39); POTASSIUM SERUM 4.1 MMOL/L (3.5-5.1); TOTAL PROTEIN 7.2 G/DL (5.7-8.2)
[2022-08-07] MEDS ORDERED: NICOTINE 7 MG/24 HR TRANSDERMAL TOP SCH (09:00)
[2022-08-07] MEDS ORDERED: MULTIVITAMINS/MINERALS THERAP 1 TAB PEG SCH (09:00)
[2022-08-07] MEDS ORDERED: ATORVASTATIN 20 MG TAB PO SCH (09:00)
[2022-08-07] MEDS: MULTIVITAMINS/MINERALS THERAP 1 TAB PEG SCH (10:23)
[2022-08-07] MEDS: MIRALAX *UNIT DOSE* 17GM PACKET PEG SCH (10:23)
[2022-08-07] MEDS: ASPIRIN 81MG CHEW TABLET PEG SCH (10:23)
[2022-08-07] MEDS: APIXABAN 5 MG TAB (ELIQUIS) PEG SCH ×2 (10:23→21:46)
[2022-08-07] MEDS: PANTOPRAZOLE 40MG VIAL IV SCH (10:23)
[2022-08-07] MEDS: METOPROLOL TART 25 MG TABLET PEG SCH ×2 (10:24→21:44)
[2022-08-07] MEDS ORDERED: D5W/0.45% SODIUM CHLORIDE 1,000 ML IV SCH (15:00)
[2022-08-07] MEDS: ATORVASTATIN 20 MG TAB PEG SCH (15:29)
[2022-08-07] MEDS ORDERED: POTASSIUM CHLORIDE 10% LIQ 20MEQ/15ML UDC GT ONE (15:45)
[2022-08-07] MEDS ORDERED: KCL 10MEQ/100ML SWI (KRUN) 10 MEQ in IV 1 EA IV ONE (15:45)
[2022-08-07 15:51] LABS: CALCIUM LEVEL 8.1 MG/DL (8.3-10.6); CREATININE FOR GFR 1.27 MG/DL (0.55-1.30); GLOMERULAR FILTRATION RATE 43.3 (>39); POTASSIUM SERUM 3.9 MMOL/L (3.5-5.1)
[2022-08-07] MEDS: guaiFENesin SYRUP 200MG 10ML UDC PO SCH ×2 (17:44→21:44)
[2022-08-07] MEDS: DIGOXIN 0.125 MG TAB PEG SCH (17:44)
[2022-08-07] MEDS: D5W 1,000 ML IV SCH (17:44)
[2022-08-07 19:33] LABS: CREATININE FOR GFR 1.2 MG/DL (0.55-1.30); GLOMERULAR FILTRATION RATE 46.3 (>39); POTASSIUM SERUM 3.7 MMOL/L (3.5-5.1)
[2022-08-07] MEDS ORDERED: rOPINIRole 0.25 MG TAB(REQUIP) PEG SCH (21:00)
[2022-08-07] MEDS: VANCOMYCIN HCL 1,000 MG, VIAL MATE ADAPTER 1 EACH in NS 250 ML IV SCH (21:43)
[2022-08-07] MEDS: MIRTAZAPINE 15 MG TAB PEG SCH (21:45)
[2022-08-07] MEDS: rOPINIRole 0.25 MG TAB(REQUIP) PEG SCH (21:45)
[2022-08-07] MEDS: LEVEMIR (INSULIN DETEMIR) 1 UNITS/0.01ML SC SCH ×2 (21:46)
[2022-08-08] VITALS: BP 111/57
[2022-08-08] MEDS: INSULIN LISPRO (NovoLOG) PER UNIT SC SCH ×4 (00:20→17:12)
[2022-08-08 01:51] LABS: CALCIUM LEVEL 7.9 MG/DL (8.3-10.6); CREATININE FOR GFR 1.09 MG/DL (0.55-1.30); GLOMERULAR FILTRATION RATE 51.7 (>39); POTASSIUM SERUM 3.5 MMOL/L (3.5-5.1)
[2022-08-08] MEDS: guaiFENesin SYRUP 200MG 10ML UDC PO SCH (02:12)
[2022-08-08 04:00] VITALS: BP 126/59
[2022-08-08] MEDS: methylPREDNISolone 40MG 1ML VIAL IV SCH ×3 (04:16→21:01)
[2022-08-08] MEDS: D5W 1,000 ML IV SCH ×2 (04:16→10:02)
[2022-08-08] MEDS: PIPERACILLIN/TAZOBACTAM SOD 3.375 GM in D5W MINI-BAG PLUS 50 ML IV SCH ×4 (04:16→22:25)
[2022-08-08 05:28] LABS: BASO % 0.1 % (0.0-1.0); HEMATOCRIT 29.3 % (36.0-47.0); HEMOGLOBIN 8.6 g/dl (12.0-15.5); LYMPH # 0.3 10^3/uL (1.5-5.0); LYMPH % 1.9 % (24.0-44.0); MEAN CORPUSCULAR HEMOGLOBIN 25.8 pg (27.0-33.0); MEAN CORPUSCULAR HGB CONC 29.4 g/dl (32.0-36.5); MONO # 0.4 10^3/uL (0.0-0.8); MONO % 2.1 % (2.0-8.0); NEUTROPHILS # 16.1 10^3/uL (1.5-8.5); NEUTROPHILS % 94.9 % (36.0-66.0); PLATELET COUNT, AUTOMATED 323 10^3/uL (150-450); RED BLOOD COUNT 3.33 10^6/uL (4.00-5.40); WHITE BLOOD COUNT 16.9 10^3/uL (4.0-10.0)
[2022-08-08] MEDS: LEVOTHYROXINE 100MCG TABLET (0.1MG) PEG SCH (05:52)
[2022-08-08 05:59] LABS: CALCIUM LEVEL 7.8 MG/DL (8.3-10.6); CREATININE FOR GFR 1.1 MG/DL (0.55-1.30); GLOMERULAR FILTRATION RATE 51.1 (>39); POTASSIUM SERUM 3.8 MMOL/L (3.5-5.1)
[2022-08-08] MEDS ORDERED: LEVOTHYROXINE 100MCG TABLET (0.1MG) PEG SCH (06:00)
[2022-08-08] MEDS ORDERED: LEVOTHYROXINE 75MCG TABLET (0.075MG) PEG SCH (06:00)
[2022-08-08 06:02] LABS: FREE T4 1.25 NG/DL (0.89-1.76); THYROID STIMULATING HORMONE 0.089 uIU/ML (0.55-4.78)
[2022-08-08 08:09] LABS: BASO % 0.1 % (0.0-1.0); HEMOGLOBIN 8.7 g/dl (12.0-15.5); LYMPH # 0.2 10^3/uL (1.5-5.0); LYMPH % 1.2 % (24.0-44.0); MEAN CORPUSCULAR HEMOGLOBIN 25.9 pg (27.0-33.0); MEAN CORPUSCULAR VOLUME 89.3 fl (80.0-96.0); MONO # 0.2 10^3/uL (0.0-0.8); MONO % 1.2 % (2.0-8.0); NEUTROPHILS # 14.2 10^3/uL (1.5-8.5); PLATELET COUNT, AUTOMATED 290 10^3/uL (150-450); RED BLOOD COUNT 3.36 10^6/uL (4.00-5.40); WHITE BLOOD COUNT 14.6 10^3/uL (4.0-10.0)
[2022-08-08] MEDS: IPRATROPIUM 0.5MG/ALBUTEROL 2.5MG INH SOL UD 3ML (DUONEB) NEB SCH ×4 (08:30→19:54)
[2022-08-08 09:00] VITALS: BP 129/61
[2022-08-08] MEDS: MIRALAX *UNIT DOSE* 17GM PACKET PEG SCH (09:00)
[2022-08-08] MEDS: METOPROLOL TART 25 MG TABLET PEG SCH ×2 (09:35→21:03)
[2022-08-08] MEDS: ASPIRIN 81MG CHEW TABLET PEG SCH (09:35)
[2022-08-08] MEDS: ATORVASTATIN 20 MG TAB PEG SCH (09:35)
[2022-08-08] MEDS: PANTOPRAZOLE 40MG VIAL IV SCH (09:35)
[2022-08-08] MEDS: APIXABAN 5 MG TAB (ELIQUIS) PEG SCH ×2 (09:36→21:02)
[2022-08-08] MEDS: DIGOXIN 0.125 MG TAB PEG SCH (09:36)
[2022-08-08] MEDS: MULTIVITAMINS/MINERALS THERAP 1 TAB PEG SCH (09:36)
[2022-08-08] MEDS: guaiFENesin SYRUP 200MG 10ML UDC PEG SCH ×3 (09:37→21:03)
[2022-08-08 10:33] LABS: FREE T4 1.64 NG/DL (0.89-1.76)
[2022-08-08 10:34] LABS: THYROID STIMULATING HORMONE 0.086 uIU/ML (0.55-4.78)
[2022-08-08 10:37] LABS: CALCIUM LEVEL 7.9 MG/DL (8.3-10.6); CREATININE FOR GFR 1.04 MG/DL (0.55-1.30); GLOMERULAR FILTRATION RATE 54.6 (>39); POTASSIUM SERUM 3.6 MMOL/L (3.5-5.1)
[2022-08-08 11:13] LABS: CALCIUM LEVEL 7.9 MG/DL (8.3-10.6); CREATININE FOR GFR 1.02 MG/DL (0.55-1.30); GLOMERULAR FILTRATION RATE 55.8 (>39); POTASSIUM SERUM 3.6 MMOL/L (3.5-5.1)
[2022-08-08 11:17] LABS: MAGNESIUM LEVEL 2.3 MG/DL (1.8-2.4)
[2022-08-08 11:53] VITALS: BP 109/53
[2022-08-08] MEDS: ACETAMINOPHEN 325MG/10.15ML UDC PEG PRN (13:10)
[2022-08-08 16:22] VITALS: BP 113/58
[2022-08-08 16:54] LABS: CALCIUM LEVEL 7.9 MG/DL (8.3-10.6); CREATININE FOR GFR 0.97 MG/DL (0.55-1.30); GLOMERULAR FILTRATION RATE 59.1 (>39); POTASSIUM SERUM 3.8 MMOL/L (3.5-5.1)
[2022-08-08 19:50] VITALS: BP 116/58
[2022-08-08 20:25] LABS: BLOOD UREA NITROGEN 64 MG/DL (9-23); CALCIUM LEVEL 7.7 MG/DL (8.3-10.6); CARBON DIOXIDE LEVEL 24 MMOL/L (20-31); CHLORIDE LEVEL 118 MMOL/L (98-107); CREATININE FOR GFR 0.94 MG/DL (0.55-1.30); GLOMERULAR FILTRATION RATE > 60.0 (>39); GLUCOSE, FASTING 337 MG/DL (74-106); POTASSIUM SERUM 3.5 MMOL/L (3.5-5.1); SODIUM LEVEL 151 MMOL/L (136-145)
[2022-08-08] MEDS: VANCOMYCIN HCL 1,000 MG, VIAL MATE ADAPTER 1 EACH in NS 250 ML IV SCH (21:01)
[2022-08-08] MEDS: LEVEMIR (INSULIN DETEMIR) 1 UNITS/0.01ML SC SCH (21:02)
[2022-08-08] MEDS: rOPINIRole 0.25 MG TAB(REQUIP) PEG SCH (21:02)
[2022-08-08] MEDS: MIRTAZAPINE 15 MG TAB PEG SCH (21:03)
[2022-08-09] VITALS: BP 127/58
[2022-08-09] MEDS: INSULIN LISPRO (NovoLOG) PER UNIT SC SCH ×4 (01:36→19:00)
[2022-08-09] MEDS: guaiFENesin SYRUP 200MG 10ML UDC PEG SCH ×4 (01:37→20:44)
[2022-08-09 02:53] LABS: BLOOD UREA NITROGEN 54 MG/DL (9-23); CALCIUM LEVEL 7.7 MG/DL (8.3-10.6); CARBON DIOXIDE LEVEL 24 MMOL/L (20-31); CHLORIDE LEVEL 116 MMOL/L (98-107); CREATININE FOR GFR 0.88 MG/DL (0.55-1.30); GLOMERULAR FILTRATION RATE > 60.0 (>39); GLUCOSE, FASTING 392 MG/DL (74-106); POTASSIUM SERUM 3.6 MMOL/L (3.5-5.1); SODIUM LEVEL 149 MMOL/L (136-145)
[2022-08-09 04:00] VITALS: BP 119/68
[2022-08-09] MEDS: PIPERACILLIN/TAZOBACTAM SOD 3.375 GM in D5W MINI-BAG PLUS 50 ML IV SCH ×2 (04:07→10:38)
[2022-08-09] MEDS: methylPREDNISolone 40MG 1ML VIAL IV SCH ×2 (04:08→12:50)
[2022-08-09] MEDS: LEVOTHYROXINE 100MCG TABLET (0.1MG) PEG SCH (05:45)
[2022-08-09 06:36] LABS: BASO % 0.1 % (0.0-1.0); HEMATOCRIT 28.4 % (36.0-47.0); HEMOGLOBIN 8.4 g/dl (12.0-15.5); LYMPH # 0.3 10^3/uL (1.5-5.0); LYMPH % 2.1 % (24.0-44.0); MEAN CORPUSCULAR HEMOGLOBIN 26.1 pg (27.0-33.0); MEAN CORPUSCULAR HGB CONC 29.6 g/dl (32.0-36.5); MEAN CORPUSCULAR VOLUME 88.2 fl (80.0-96.0); MONO # 0.3 10^3/uL (0.0-0.8); MONO % 2.5 % (2.0-8.0); NEUTROPHILS # 11.5 10^3/uL (1.5-8.5); NEUTROPHILS % 94.7 % (36.0-66.0); PLATELET COUNT, AUTOMATED 277 10^3/uL (150-450); RED BLOOD COUNT 3.22 10^6/uL (4.00-5.40); WHITE BLOOD COUNT 12.1 10^3/uL (4.0-10.0)
[2022-08-09 06:58] LABS: BLOOD UREA NITROGEN 59 MG/DL (9-23); CALCIUM LEVEL 7.7 MG/DL (8.3-10.6); CARBON DIOXIDE LEVEL 25 MMOL/L (20-31); CHLORIDE LEVEL 115 MMOL/L (98-107); CREATININE FOR GFR 0.84 MG/DL (0.55-1.30); GLOMERULAR FILTRATION RATE > 60.0 (>39); GLUCOSE, FASTING 300 MG/DL (74-106); MAGNESIUM LEVEL 2.1 MG/DL (1.8-2.4); POTASSIUM SERUM 3.8 MMOL/L (3.5-5.1); SODIUM LEVEL 150 MMOL/L (136-145)
[2022-08-09] MEDS: IPRATROPIUM 0.5MG/ALBUTEROL 2.5MG INH SOL UD 3ML (DUONEB) NEB SCH ×4 (07:55→19:56)
[2022-08-09 08:33] VITALS: BP 124/72
[2022-08-09] MEDS: MIRALAX *UNIT DOSE* 17GM PACKET PEG SCH (09:00)
[2022-08-09 09:02] LABS: VANCOMYCIN RANDOM 19.7 UG/ML
[2022-08-09 09:37] LABS: ABG BASE EXCESS 0.7 (-2.0-2.0); ABG HCO3 24.1 MEQ/L (22.0-26.0); ABG O2 SATURATION 98.1 % (95.0-99.0); ABG PARTIAL PRESSURE O2 111.9 mmHg (75.0-100.0); ABG STANDARD HCO3 25.1 MEQ/L (22.0-26.0); ABG TOTAL CO2 25.2 MEQ/L (23.0-31.0); ABG pH (ARTERIAL) 7.469 UNITS (7.350-7.450)
[2022-08-09] MEDS ORDERED: LevoFLOXacin 500 MG TABLET PO ONE (10:30)
[2022-08-09] MEDS: ATORVASTATIN 20 MG TAB PEG SCH (10:33)
[2022-08-09] MEDS: PANTOPRAZOLE 40MG VIAL IV SCH (10:33)
[2022-08-09] MEDS: ASPIRIN 81MG CHEW TABLET PEG SCH (10:33)
[2022-08-09] MEDS: METOPROLOL TART 25 MG TABLET PEG SCH ×2 (10:36→20:44)
[2022-08-09] MEDS: MULTIVITAMINS/MINERALS THERAP 1 TAB PEG SCH (10:36)
[2022-08-09] MEDS: SALIVA SUBSTITUTE(MOUTHKOTE) BTL MT PRN ×3 (10:37→16:20)
[2022-08-09] MEDS: APIXABAN 5 MG TAB (ELIQUIS) PEG SCH ×2 (10:37→20:43)
[2022-08-09] MEDS: DIGOXIN 0.125 MG TAB PEG SCH (10:37)
[2022-08-09 11:31] LABS: BLOOD UREA NITROGEN 55 MG/DL (9-23); CALCIUM LEVEL 7.8 MG/DL (8.3-10.6); CARBON DIOXIDE LEVEL 27 MMOL/L (20-31); CHLORIDE LEVEL 116 MMOL/L (98-107); CREATININE FOR GFR 0.79 MG/DL (0.55-1.30); GLOMERULAR FILTRATION RATE > 60.0 (>39); GLUCOSE, FASTING 243 MG/DL (74-106); POTASSIUM SERUM 4.2 MMOL/L (3.5-5.1); SODIUM LEVEL 149 MMOL/L (136-145)
[2022-08-09 12:40] VITALS: BP 125/59
[2022-08-09] MEDS: DOXYCYCLINE HYCLATE 100MG TABLET PEG SCH ×2 (13:00→20:43)
[2022-08-09] MEDS: LevoFLOXacin 750 MG TABLET PEG SCH (13:00)
[2022-08-09 15:33] VITALS: BP 128/55
[2022-08-09] MEDS: ACETAMINOPHEN 325MG/10.15ML UDC PEG PRN (16:19)
[2022-08-09] MEDS: predniSONE 20 MG TAB PEG SCH (16:20)
[2022-08-09 16:39] LABS: BLOOD UREA NITROGEN 52 MG/DL (9-23); CALCIUM LEVEL 7.6 MG/DL (8.3-10.6); CARBON DIOXIDE LEVEL 27 MMOL/L (20-31); CHLORIDE LEVEL 114 MMOL/L (98-107); CREATININE FOR GFR 0.73 MG/DL (0.55-1.30); GLOMERULAR FILTRATION RATE > 60.0 (>39); GLUCOSE, FASTING 216 MG/DL (74-106); POTASSIUM SERUM 4.1 MMOL/L (3.5-5.1); SODIUM LEVEL 149 MMOL/L (136-145)
[2022-08-09 19:44] VITALS: BP 115/60
[2022-08-09] MEDS: MIRTAZAPINE 15 MG TAB PEG SCH (20:43)
[2022-08-09] MEDS: LEVEMIR (INSULIN DETEMIR) 1 UNITS/0.01ML SC SCH (20:43)
[2022-08-09] MEDS: rOPINIRole 0.25 MG TAB(REQUIP) PEG SCH (20:44)
[2022-08-09] MEDS ORDERED: DOXYCYCLINE HYCLATE 100MG TABLET PO SCH (21:00)
[2022-08-10] VITALS (7 sets, daily range): BP systolic 99–128; BP diastolic 56–81
[2022-08-10] MEDS: INSULIN LISPRO (NovoLOG) PER UNIT SC SCH ×4 (00:39→17:28)
[2022-08-10] MEDS: guaiFENesin SYRUP 200MG 10ML UDC PEG SCH ×4 (02:00→20:09)
[2022-08-10 05:13] LABS: BASO % 0.1 % (0.0-1.0); HEMATOCRIT 28.8 % (36.0-47.0); HEMOGLOBIN 8.3 g/dl (12.0-15.5); LYMPH # 0.4 10^3/uL (1.5-5.0); LYMPH % 4.4 % (24.0-44.0); MEAN CORPUSCULAR HEMOGLOBIN 25.6 pg (27.0-33.0); MEAN CORPUSCULAR HGB CONC 28.8 g/dl (32.0-36.5); MEAN CORPUSCULAR VOLUME 88.9 fl (80.0-96.0); MONO # 0.4 10^3/uL (0.0-0.8); MONO % 4.1 % (2.0-8.0); NEUTROPHILS % 90.7 % (36.0-66.0); PLATELET COUNT, AUTOMATED 253 10^3/uL (150-450); RED BLOOD COUNT 3.24 10^6/uL (4.00-5.40); WHITE BLOOD COUNT 8.8 10^3/uL (4.0-10.0)
[2022-08-10 05:39] LABS: BLOOD UREA NITROGEN 47 MG/DL (9-23); CALCIUM LEVEL 8.3 MG/DL (8.3-10.6); CARBON DIOXIDE LEVEL 24 MMOL/L (20-31); CHLORIDE LEVEL 112 MMOL/L (98-107); CREATININE FOR GFR 0.71 MG/DL (0.55-1.30); GLOMERULAR FILTRATION RATE > 60.0 (>39); GLUCOSE, FASTING 246 MG/DL (74-106); MAGNESIUM LEVEL 1.9 MG/DL (1.8-2.4); POTASSIUM SERUM 4.2 MMOL/L (3.5-5.1); SODIUM LEVEL 148 MMOL/L (136-145)
[2022-08-10] MEDS ORDERED: LevoFLOXacin 250 MG TABLET PO SCH (06:00)
[2022-08-10] MEDS ORDERED: LevoFLOXacin 250 MG TABLET PEG SCH (06:00)
[2022-08-10] MEDS: LevoFLOXacin 750 MG TABLET PEG SCH (06:18)
[2022-08-10] MEDS: LEVOTHYROXINE 100MCG TABLET (0.1MG) PEG SCH (06:19)
[2022-08-10] MEDS: ACETAMINOPHEN 325MG/10.15ML UDC PEG PRN (08:53)
[2022-08-10] MEDS: ATORVASTATIN 20 MG TAB PEG SCH (08:53)
[2022-08-10] MEDS: ASPIRIN 81MG CHEW TABLET PEG SCH (08:54)
[2022-08-10] MEDS: OMEPRAZOLE SUSPENSION 20MG 10ML ORAL SYRINGE PEG SCH (08:54)
[2022-08-10] MEDS: MULTIVITAMINS/MINERALS THERAP 1 TAB PEG SCH (08:54)
[2022-08-10] MEDS: DOXYCYCLINE HYCLATE 100MG TABLET PEG SCH ×2 (08:55→20:10)
[2022-08-10] MEDS: APIXABAN 5 MG TAB (ELIQUIS) PEG SCH ×2 (08:55→20:09)
[2022-08-10] MEDS: DIGOXIN 0.125 MG TAB PEG SCH (08:56)
[2022-08-10] MEDS: predniSONE 20 MG TAB PEG SCH (08:56)
[2022-08-10] MEDS: METOPROLOL TART 25 MG TABLET PEG SCH ×2 (08:56→20:10)
[2022-08-10] MEDS: MIRALAX *UNIT DOSE* 17GM PACKET PEG SCH (08:57)
[2022-08-10] MEDS: IPRATROPIUM 0.5MG/ALBUTEROL 2.5MG INH SOL UD 3ML (DUONEB) NEB SCH ×4 (09:12→20:53)
[2022-08-10] MEDS ORDERED: MIRALAX *UNIT DOSE* 17GM PACKET PEG PRN (10:10)
[2022-08-10] MEDS: LEVEMIR (INSULIN DETEMIR) 1 UNITS/0.01ML SC SCH ×2 (11:01→20:10)
[2022-08-10] MEDS: FLUCONAZOLE 100 MG TAB PEG SCH (11:02)
[2022-08-10 14:18] LABS: BLOOD UREA NITROGEN 47 MG/DL (9-23); CARBON DIOXIDE LEVEL 28 MMOL/L (20-31); CHLORIDE LEVEL 113 MMOL/L (98-107); CREATININE FOR GFR 0.67 MG/DL (0.55-1.30); GLOMERULAR FILTRATION RATE > 60.0 (>39); GLUCOSE, FASTING 139 MG/DL (74-106); POTASSIUM SERUM 4.3 MMOL/L (3.5-5.1); SODIUM LEVEL 150 MMOL/L (136-145)
[2022-08-10] MEDS: rOPINIRole 0.25 MG TAB(REQUIP) PEG SCH (20:09)
[2022-08-10] MEDS: MIRTAZAPINE 15 MG TAB PEG SCH (20:09)
[2022-08-11] MEDS: guaiFENesin SYRUP 200MG 10ML UDC PEG SCH ×2 (01:25→08:03)
[2022-08-11] MEDS: LevoFLOXacin 750 MG TABLET PEG SCH (05:41)
[2022-08-11] MEDS: LEVOTHYROXINE 100MCG TABLET (0.1MG) PEG SCH (05:41)
[2022-08-11 05:56] VITALS: BP 102/61
[2022-08-11] MEDS: INSULIN LISPRO (NovoLOG) PER UNIT SC SCH ×2 (06:00)
[2022-08-11] MEDS: IPRATROPIUM 0.5MG/ALBUTEROL 2.5MG INH SOL UD 3ML (DUONEB) NEB SCH ×2 (07:42→11:13)
[2022-08-11 07:48] LABS: BASO % 0.1 % (0.0-1.0); EOS % 0.3 % (0.0-3.0); HEMATOCRIT 29.8 % (36.0-47.0); HEMOGLOBIN 8.9 g/dl (12.0-15.5); LYMPH # 0.7 10^3/uL (1.5-5.0); LYMPH % 6.9 % (24.0-44.0); MEAN CORPUSCULAR HGB CONC 29.9 g/dl (32.0-36.5); MEAN CORPUSCULAR VOLUME 87.1 fl (80.0-96.0); MONO # 0.6 10^3/uL (0.0-0.8); MONO % 5.8 % (2.0-8.0); NEUTROPHILS # 8.4 10^3/uL (1.5-8.5); NEUTROPHILS % 86.2 % (36.0-66.0); PLATELET COUNT, AUTOMATED 282 10^3/uL (150-450); RED BLOOD COUNT 3.42 10^6/uL (4.00-5.40); WHITE BLOOD COUNT 9.8 10^3/uL (4.0-10.0)
[2022-08-11] MEDS: APIXABAN 5 MG TAB (ELIQUIS) PEG SCH (08:04)
[2022-08-11] MEDS: predniSONE 20 MG TAB PEG SCH (08:04)
[2022-08-11] MEDS: LEVEMIR (INSULIN DETEMIR) 1 UNITS/0.01ML SC SCH (08:04)
[2022-08-11] MEDS: OMEPRAZOLE SUSPENSION 20MG 10ML ORAL SYRINGE PEG SCH (08:04)
[2022-08-11] MEDS: ASPIRIN 81MG CHEW TABLET PEG SCH (08:05)
[2022-08-11] MEDS: MULTIVITAMINS/MINERALS THERAP 1 TAB PEG SCH (08:05)
[2022-08-11] MEDS: ATORVASTATIN 20 MG TAB PEG SCH (08:05)
[2022-08-11] MEDS: FLUCONAZOLE 100 MG TAB PEG SCH (08:06)
[2022-08-11] MEDS: DOXYCYCLINE HYCLATE 100MG TABLET PEG SCH (08:06)
[2022-08-11 08:11] LABS: BLOOD UREA NITROGEN 39 MG/DL (9-23); CALCIUM LEVEL 8.1 MG/DL (8.3-10.6); CARBON DIOXIDE LEVEL 30 MMOL/L (20-31); CHLORIDE LEVEL 111 MMOL/L (98-107); CREATININE FOR GFR 0.62 MG/DL (0.55-1.30); GLOMERULAR FILTRATION RATE > 60.0 (>39); GLUCOSE, FASTING 90 MG/DL (74-106); MAGNESIUM LEVEL 1.7 MG/DL (1.8-2.4); POTASSIUM SERUM 4.1 MMOL/L (3.5-5.1); SODIUM LEVEL 147 MMOL/L (136-145)
[2022-08-11 08:12] VITALS: BP 118/67
[2022-08-11] MEDS: METOPROLOL TART 25 MG TABLET PEG SCH (08:12)
[2022-08-11] MEDS: DIGOXIN 0.125 MG TAB PEG SCH (08:12)
[2022-08-11] MEDS ORDERED: MAGNESIUM OXIDE 400MG TAB (MAG-OX) PEG ONE (09:00)
[2022-08-11] MEDS ORDERED: ASPI81CH8 PEG (11:46)
[2022-08-11] MEDS ORDERED: LEVO1TAB40 PEG (11:46)
[2022-08-11] MEDS ORDERED: DOXY100T PEG (11:46)
[2022-08-11] MEDS ORDERED: PRED10TA2 PEG (11:46)
[2022-08-11] MEDS ORDERED: ELIQ5TAB PEG (11:46)
[2022-08-11] MEDS ORDERED: ATOR1TAB21 PEG (11:46)
[2022-08-11] MEDS ORDERED: FLUC100T3 PEG (11:46)
[2022-08-11 14:09] LABS: BODY FLUID CULTURE Not indicated. (.); LEGIONELLA ANTIGEN URINE Negative (Negative); ORGANISM ID Not indicated. (.); SPECIMEN SOURCE Urine (.); URINE STREP PNEUMONIAE ANTIGEN Negative (Negative)
[2022-08-11] MEDS ORDERED: LEVEMIR (INSULIN DETEMIR) 1 UNITS/0.01ML SC SCH (21:00)
== END 2022-08-11 13:15 | DRG 177 ==
LOC: ENRESERV 17:34 → M ICU 18:28 → M PCU 08-07 17:32 → M MS5PR 08-10 17:45
PROVIDERS: ADMIT Internal Medicine; ATTEND Internal Medicine
PROC: B246ZZZ Ultrasonography of Right and Left Heart (ICD-10-PCS; principal; 2022-08-08)
DX: J69.0 Pneumonitis due to inhalation of food and vomit (principal); J96.21 Acute and chronic respiratory failure with hypoxia; I21.4 Non-ST elevation (NSTEMI) myocardial infarction; J44.1 Chronic obstructive pulmonary disease with (acute) exacerbation; J45.901 Unspecified asthma with (acute) exacerbation; N17.9 Acute kidney failure, unspecified; J90 Pleural effusion, not elsewhere classified; E87.20 Acidosis, unspecified; I48.20 Chronic atrial fibrillation, unspecified; E87.0 Hyperosmolality and hypernatremia; N30.00 Acute cystitis without hematuria; E87.3 Alkalosis; E87.5 Hyperkalemia; D64.9 Anemia, unspecified; E11.622 Type 2 diabetes mellitus with other skin ulcer; E03.9 Hypothyroidism, unspecified; L98.499 Non-pressure chronic ulcer of skin of other sites with unspecified severity; K21.9 Gastro-esophageal reflux disease without esophagitis; R13.10 Dysphagia, unspecified; E78.5 Hyperlipidemia, unspecified; M10.9 Gout, unspecified; M19.90 Unspecified osteoarthritis, unspecified site; F32.A Depression, unspecified; D72.829 Elevated white blood cell count, unspecified; E11.22 Type 2 diabetes mellitus with diabetic chronic kidney disease; I12.9 Hypertensive chronic kidney disease with stage 1 through stage 4 chronic kidney disease, or unspecified chronic kidney disease; I27.23 Pulmonary hypertension due to lung diseases and hypoxia; N18.30 Chronic kidney disease, stage 3 unspecified; E86.0 Dehydration; F17.200 Nicotine dependence, unspecified, uncomplicated; G47.33 Obstructive sleep apnea (adult) (pediatric); Z66 Do not resuscitate; R41.82 Altered mental status, unspecified; R33.9 Retention of urine, unspecified; Z99.81 Dependence on supplemental oxygen; Z93.1 Gastrostomy status; Z98.41 Cataract extraction status, right eye; Z90.49 Acquired absence of other specified parts of digestive tract; Z79.899 Other long term (current) drug therapy; Z86.73 Personal history of transient ischemic attack (TIA), and cerebral infarction without residual deficits; Z79.4 Long term (current) use of insulin; Z79.01 Long term (current) use of anticoagulants; Z79.890 Hormone replacement therapy; Z85.038 Personal history of other malignant neoplasm of large intestine

== ENCOUNTER 2022-08-16 14:42 | Emergency (ER) | payer OTHER ==
[~2022-08-16] VITALS: Ht 157.5 cm; Wt 75.0 kg
[~2022-08-16 14:42] MED LIST changes: +ASPI81CH8 PEG; +ATOR1TAB21 PEG; +DOXY100T PEG; +ELIQ5TAB PEG; +FLUC100T3 PEG; +HUMA100I3 SC; +INSULANT INJ; +LASI40TA9 PEG; +LEVO1TAB40 PEG; +MAGN400T2 PEG; +MELA3TAB30 PEG; +METO25TA4 PEG; +MIRA3350 PO; +NICO7DIS4 TOP; +PANT40GR PEG; +PRED10TA2 PEG; +SENN-80 PEG; +THERTAB52 PEG
[2022-08-16] MEDS ORDERED: BIOTLIQ9 MT (16:09)
[2022-08-16] MEDS ORDERED: MILKSUS3 PO (16:09)
[2022-08-16] MEDS ORDERED: PRED10TA2 PO (16:15)
[2022-08-16 16:17] VITALS: BP 101/57
[2022-08-16 16:22] LABS: BASO % 0.1 % (0.0-1.0); EOS % 0.1 % (0.0-3.0); HEMATOCRIT 33.8 % (36.0-47.0); HEMOGLOBIN 10.5 g/dl (12.0-15.5); LYMPH # 0.5 10^3/uL (1.5-5.0); LYMPH % 4.4 % (24.0-44.0); MEAN CORPUSCULAR HEMOGLOBIN 26.3 pg (27.0-33.0); MEAN CORPUSCULAR HGB CONC 31.1 g/dl (32.0-36.5); MEAN CORPUSCULAR VOLUME 84.7 fl (80.0-96.0); MONO # 0.2 10^3/uL (0.0-0.8); NEUTROPHILS % 92.6 % (36.0-66.0); PLATELET COUNT, AUTOMATED 286 10^3/uL (150-450); RED BLOOD COUNT 3.99 10^6/uL (4.00-5.40); WHITE BLOOD COUNT 11.8 10^3/uL (4.0-10.0)
[2022-08-16] MEDS ORDERED: BACTRIM 160MG/800MG DS TAB PO ONE (16:25)
[2022-08-16] MEDS ORDERED: FLUC100T3 PEG (16:25)
[2022-08-16] MEDS ORDERED: FURO40TA2 PEG (16:25)
[2022-08-16] MEDS ORDERED: BACT800T5 PO (17:01)
[2022-08-16] MEDS ORDERED: SULF200S10 PEG (17:05)
[2022-08-16] MEDS ORDERED: BACTRIM SUSP 160MG/800MG PER 20ML ORAL SYRINGE PEG ONE (17:05)
[2022-08-16 17:47] LABS: BLOOD UREA NITROGEN 42 MG/DL (9-23); CALCIUM LEVEL 8.5 MG/DL (8.3-10.6); CARBON DIOXIDE LEVEL 31 MMOL/L (20-31); CHLORIDE LEVEL 102 MMOL/L (98-107); CREATININE FOR GFR 0.95 MG/DL (0.55-1.30); GLOMERULAR FILTRATION RATE > 60.0 (>39); GLUCOSE, FASTING 159 MG/DL (74-106); SODIUM LEVEL 141 MMOL/L (136-145)
== END 2022-08-16 18:51 | disposition home or self-care (01) ==
LOC: EDSEX 14:42 → EEVIPCON 14:42 → M ED 14:42 → EDBD 14:42 → M ED 18:51
DX: K94.20 Gastrostomy complication, unspecified (principal); K65.4 Sclerosing mesenteritis; I48.91 Unspecified atrial fibrillation; E11.9 Type 2 diabetes mellitus without complications; I10 Essential (primary) hypertension; J44.9 Chronic obstructive pulmonary disease, unspecified; F32.A Depression, unspecified; Z85.038 Personal history of other malignant neoplasm of large intestine; Z86.73 Personal history of transient ischemic attack (TIA), and cerebral infarction without residual deficits; Z86.14 Personal history of Methicillin resistant Staphylococcus aureus infection; Z87.891 Personal history of nicotine dependence; Z79.82 Long term (current) use of aspirin; Z79.84 Long term (current) use of oral hypoglycemic drugs; Z79.899 Other long term (current) drug therapy; Z79.51 Long term (current) use of inhaled steroids; Z79.52 Long term (current) use of systemic steroids; Z79.4 Long term (current) use of insulin